=== PATIENT | female | born 1935 | race Caucasian/White ===

== ENCOUNTER 2022-02-21 16:55 | Inpatient (IN) | payer MEDICARE, OTHER ==
[2022-02-22] MEDS: MELATONIN 5 MG TAB PO SCH ×2 (00:53→21:18)
[2022-02-22 01:24] LABS: Bilirubin,Urine NEG (Negative); Blood,Urine NEG (Negative); Color,Urine Yellow (Yellow); Mucus,Urine FEW /HPF; Protein,Urine <15 mg/dL mg/dL (Negative)
--- NOTE | 2022-02-22 08:35 | History and Physical Report ---
GP History & Physical - History of Present Illness Date of admission: 02/21/22 Date of Examination: 02/22/22 Reason for Admission: Danger to self, Danger to others Chief Complaint: suicidal ideation History of Present Illness: The patient is an 87 year old female with depression and anxiety who was admitted for suicidal ideation. Per note, "the patient made suicidal statements and relayed that she would jump out of the window; the patient has had 2 suicidal attempt in the past in which she held scissors to her throat and cut herself with glass, daughter relates that the patient's 4 years ago and that the patient continues to grieve and feel alone." The patient was seen this morning. She presents with confusion; she was seen pacing the hallway asking why she is here. The patient states that " I fell off a chair, just carelessness and they took me to the hospital, I didn't break anything, who's the doctor putting me here." The patient denies suicidal ideation " I want to leave, I got things to do." PAST PSYCHIATRIC HISTORY: PAST MEDICAL HISTORY: None reported or document Family Psychiatric History: None reported or documented SOCIAL HISTORY REVIEW OF SYSTEMS MENTAL STATUS EXAMINATION Diagnoses: Major depressive disorder Treatment Plan: Patient admitted for inpatient psychiatric evaluation, medication adjustment and close monitoring The patient's behavior, mood, sleep and appetite will be closely monitored. Patient enrolled in individual and group therapeutic sessions and encouraged to attend. Patient provided with a safe and structured environment. Patient's physical health needs will be addressed by the Hospitalist. Hospitalist Consulted Labs including CBC, CMP, Lipid profile and Hemoglobin A1C levels ordered for baseline reference Social Assessment will be completed and the Woodworking Craftsman will work with patient and family to ensure a suitable and safe disposition Medication adjustment will be made as clinically indicated Continue home meds Usual Wellness Episcopalian/Preservation: - Start Trazodone 50 mg po QHS & 50 mg po QHS PRN between 10 PM & 2 AM for insomnia - Start Melatonin 5 mg po QHS to promote circadian rhythm The patient agreed on the treatment plan, understood the risk, benefit, alternative treatment, potential consequence of no treatment, and gave informed consent. Estimated days: 7 Medications and Allergies Legal Status: Involuntary Medications and Allergies Medications and Allergies Allergies Allergy/AdvReac Type Severity Reaction Status Date / Time codeine Allergy Unknown Verified 02/21/22 22:24 Home Medications Medication Instructions Recorded Confirmed Last Taken Type Albuterol Sulfate [Proair 2 puff INHALATION UNK 02/22/22 02/22/22 Unknown History Respiclick] Amiodarone [Cordarone 200 MG TAB] 200 mg PO DAILY 02/22/22 02/22/22 Unknown History Apixaban [Eliquis] 5 mg PO BID 02/22/22 02/22/22 Unknown History Ascorbic Acid [Vitamin C] 500 mg PO QDAY 02/22/22 02/22/22 Unknown History Budesonide/Formoterol Fumarate 10.2 gm IH BID 02/22/22 02/22/22 Unknown History [Symbicort 160-4.5 Mcg Inhaler] Furosemide [Lasix] 20 mg PO BID 02/22/22 02/22/22 Unknown History Levothyroxine [Synthroid] 100 mcg PO QAM 02/22/22 02/22/22 Unknown History Melatonin [Melatonin 3MG TAB] 3 mg PO HS 02/22/22 02/22/22 Unknown History Metoprolol [Lopressor] 25 mg PO BID 02/22/22 02/22/22 Unknown History Nitroglycerin [Nitrostat] 0.4 mg SL Q5M PRN 02/22/22 02/22/22 Unknown History Omeprazole 40 mg PO DAILY 02/22/22 02/22/22 Unknown History Potassium Chloride [K-Dur] 10 meq PO BID 02/22/22 02/22/22 Unknown History QUEtiapine [SEROquel] 100 mg PO BID 02/22/22 02/22/22 Unknown History Quinapril HCl [Accupril] 20 mg PO DAILY 02/22/22 02/22/22 Unknown History Sertraline [Zoloft] 50 mg PO QDAY 02/22/22 02/22/22 Unknown History hydroCHLOROthiazide [HCTZ] 25 mg PO QDAY 02/22/22 02/22/22 Unknown History Active Meds: Active Medications Melatonin (Melatonin 5 Mg Tab) 5 mg PO QHS [facility] Last Admin: 02/22/22 00:53 Dose: 5 mg Results - Results Labs/Vitals: Laboratory Last Values POC Glucose 98 mg/dL (70-105) 02/22/22 06:19 Urine Color Yellow (Yellow) 02/22/22 00:52 Urine Turbidity Clear (Clear) 02/22/22 00:52 Urine pH 5.0 (5.0-7.0) 02/22/22 00:52 Ur Specific [place] 1.017 (1.003-1.030) 02/22/22 00:52 Urine Protein <15 mg/dl mg/dL (Negative) 02/22/22 00:52 Urine Glucose (UA) Neg mg/dL (Negative) 02/22/22 00:52 Urine Ketones Neg mg/dL (Negative) 02/22/22 00:52 Urine Blood Neg (Negative) 02/22/22 00:52 Urine Nitrite Neg (Negative) 02/22/22 00:52 Urine Bilirubin Neg (Negative) 02/22/22 00:52 Urine Urobilinogen 2.0 mg/dL (<2.0) 02/22/22 00:52 Ur Leukocyte Esterase Sm (Negative) 02/22/22 00:52 Urine WBC (Auto) 17.0 /HPF (0.0-6.0) H 02/22/22 00:52 Urine RBC (Auto) 2.0 /HPF (0.0-6.0) 02/22/22 00:52 U Epithel Cells (Auto) 1.0 /HPF (0-13.0) 02/22/22 00:52 Urine Mucus Few /HPF 02/22/22 00:52 Last Vital Signs Temp 98.7 F 02/21/22 22:24 Pulse 56 L 02/21/22 22:24 Resp 17 02/21/22 22:24 BP 122/59 02/21/22 22:24 Pulse Ox 94 02/21/22 22:24 Physical Examination - Constitutional Vitals: Vital Signs Temp Pulse Resp BP Pulse Ox 98.7 F 56 L 17 122/59 94 02/21/22 22:24 02/21/22 22:24 02/21/22 22:24 02/21/22 22:24 02/21/22 22:24 Temperature -Last 24 Hours Temperature 98.7 F Mental Status Exam - Vital signs Last Vital Signs Temp 98.7 F 02/21/22 22:24 Pulse 56 L 02/21/22 22:24 Resp 17 02/21/22 22:24 BP 122/59 02/21/22 22:24 Pulse Ox 94 02/21/22 22:24 Physician Certification - Certification Statement Physician Certification Statement: This is an acknowledgement statement that LINA VILLEGAS is a 87 year old F who requires inpatient psychiatric admission for treatment which could reasonably be expected to improve the patient's condition for Estimated period of time patient will need to remain in the hospital: [ ] Plan for post-hospital care: [ ]
[2022-02-22] MEDS ORDERED: NON-FORMULARY EACH (Albuterol Sulfate [Proair Respiclick] 90 MCG Aer.Pow.Ba) INHALATION SCH (08:45)
[2022-02-22] MEDS ORDERED: NITROGLYCERIN 0.4 MG TAB SUBL SL PRN (09:30)
[2022-02-22] MEDS ORDERED: ALBUTEROL 2.5 MG/3 ML NEBU IH ONE (09:35)
[2022-02-22] MEDS ORDERED: QUINAPRIL HCL 20 MG PO SCH (10:00)
[2022-02-22] MEDS ORDERED: NON-FORMULARY EACH (Omeprazole [Omeprazole] 40 MG Capsule.Dr) PO SCH (10:00)
[2022-02-22] MEDS ORDERED: NON-FORMULARY EACH (Apixaban 5 MG Tablet) PO SCH (10:00)
[2022-02-22] MEDS ORDERED: NON-FORMULARY EACH (Budesonide/Formoterol Fumarate [Symbicort 160-4.5 Mcg Inhaler] 10.2 GM IH SCH (10:00)
[2022-02-22] MEDS: METOPROLOL TARTRATE 25 MG TAB PO SCH ×2 (10:43→21:18)
[2022-02-22] MEDS: hydroCHLOROthiazide 25 MG TAB PO SCH (10:43)
[2022-02-22] MEDS: SERTRALINE 50 MG TAB PO SCH (10:43)
[2022-02-22] MEDS: AMIODARONE 200 MG TAB PO SCH (10:43)
[2022-02-22] MEDS: ASCORBIC ACID 500 MG TAB PO SCH (10:43)
[2022-02-22] MEDS: QUEtiapine 100 MG TAB PO SCH ×2 (10:43→21:19)
[2022-02-22] MEDS: FUROSEMIDE 20 MG TAB PO SCH ×2 (10:47→18:04)
[2022-02-22] MEDS: PANTOPRAZOLE 40 MG TAB PO SCH (10:47)
[2022-02-22] MEDS: LEVOTHYROXINE 100 MCG TAB PO SCH (10:47)
[2022-02-22] MEDS: APIXABAN 5 MG TAB PO SCH ×3 (10:51→21:18)
[2022-02-22] MEDS: LISINOPRIL 10 MG TAB PO SCH (11:03)
[2022-02-22] MEDS: INSULIN LISPRO 100 UNIT/ML SUB-Q SCH ×4 (12:01→22:14)
[2022-02-22] MEDS: POTASSIUM CHLORIDE ER 10 MEQ TAB PO SCH ×2 (12:05→21:17)
--- NOTE | 2022-02-22 15:56 | Consultation ---
History of Present Illness - Reason for Consult Consult date: 02/22/22 hospital medicine - History of Present Illness The patient is an 87 year old female admitted for suicidal ideation. Per patient admitting history, patient made suicidal statements and relayed that she would jump out of the window; the patient has had 2 suicidal attempt in the past in which she held scissors to her throat and cut herself with glass, daughter relates that the patient's 4 years ago and that the patient continues to grieve and feel alone." Patient seen at bedside sleeping. patient nurse at bedside-pt recently medicated for sedation-patient not in any distress. reviewed lab, mar and v/s. Pts WBC elevated-17.0, temp 98.6 and HR 69-no evidence of infection-will repeat cbc in am and order UA and blood culture. Medications and Allergies Allergies Allergy/AdvReac Type Severity Reaction Status Date / Time codeine Allergy Unknown Verified 02/21/22 22:24 Home Medications Medication Instructions Recorded Confirmed Last Taken Type Albuterol Sulfate [Proair 2 puff INHALATION UNK 02/22/22 02/22/22 Unknown History Respiclick] Amiodarone [Cordarone 200 MG TAB] 200 mg PO DAILY 02/22/22 02/22/22 Unknown History Apixaban [Eliquis] 5 mg PO BID 02/22/22 02/22/22 Unknown History Ascorbic Acid [Vitamin C] 500 mg PO QDAY 02/22/22 02/22/22 Unknown History Budesonide/Formoterol Fumarate 10.2 gm IH BID 02/22/22 02/22/22 Unknown History [Symbicort 160-4.5 Mcg Inhaler] Furosemide [Lasix] 20 mg PO BID 02/22/22 02/22/22 Unknown History Levothyroxine [Synthroid] 100 mcg PO QAM 02/22/22 02/22/22 Unknown History Melatonin [Melatonin 3MG TAB] 3 mg PO HS 02/22/22 02/22/22 Unknown History Metoprolol [Lopressor] 25 mg PO BID 02/22/22 02/22/22 Unknown History Nitroglycerin [Nitrostat] 0.4 mg SL Q5M PRN 02/22/22 02/22/22 Unknown History Omeprazole 40 mg PO DAILY 02/22/22 02/22/22 Unknown History Potassium Chloride [K-Dur] 10 meq PO BID 02/22/22 02/22/22 Unknown History QUEtiapine [SEROquel] 100 mg PO BID 02/22/22 02/22/22 Unknown History Quinapril HCl [Accupril] 20 mg PO DAILY 02/22/22 02/22/22 Unknown History Sertraline [Zoloft] 50 mg PO QDAY 02/22/22 02/22/22 Unknown History hydroCHLOROthiazide [HCTZ] 25 mg PO QDAY 02/22/22 02/22/22 Unknown History Active Meds: Active Medications Albuterol (Albuterol 2.5 Mg/3 Ml Nebu) 2.5 mg IH Q4HRT PRN PRN Reason: Shortness Of Breath Amiodarone HCl (Amiodarone 200 Mg Tab) 200 mg PO DAILY [facility] Last Admin: 02/22/22 10:43 Dose: 200 mg Apixaban (Apixaban 5 Mg Tab) 5 mg PO Q12HR [facility]; Protocol Last Admin: 02/22/22 11:00 Dose: 5 mg Arformoterol Tartrate (Arformoterol 15 Mcg/2 Ml Nebu) 15 mcg IH Q12HRT [facility] Ascorbic Acid (Ascorbic Acid 500 Mg Tab) 500 mg PO QDAY [facility] Last Admin: 02/22/22 10:43 Dose: 500 mg Budesonide (Budesonide 0.5 Mg/2 Ml Nebu) 1 mg IH Q12HRT [facility] Furosemide (Furosemide 20 Mg Tab) 20 mg PO 0600,1800 [facility] Last Admin: 02/22/22 10:47 Dose: Not Given Hydrochlorothiazide (Hydrochlorothiazide 25 Mg Tab) 25 mg PO QDAY [facility] Last Admin: 02/22/22 10:43 Dose: Not Given Insulin Human Lispro (Insulin Lispro 100 Unit/Ml) 0 unit SUB-Q [facility]; Protocol Last Admin: 02/22/22 12:01 Dose: Not Given Levothyroxine Sodium (Levothyroxine 100 Mcg Tab) 100 mcg PO DAILY@0600 [facility] Last Admin: 02/22/22 10:47 Dose: Not Given Lisinopril (Lisinopril 10 Mg Tab) 10 mg PO QDAY [facility] Last Admin: 02/22/22 11:03 Dose: Not Given Melatonin (Melatonin 5 Mg Tab) 5 mg PO QHS [facility] Last Admin: 02/22/22 00:53 Dose: 5 mg Metoprolol Tartrate (Metoprolol Tartrate 25 Mg Tab) 25 mg PO BID [facility] Last Admin: 02/22/22 10:43 Dose: 25 mg Nitroglycerin (Nitroglycerin 0.4 Mg Tab Subl) 0.4 mg SL Q5M PRN PRN Reason: Chest Pain Pantoprazole Sodium (Pantoprazole 40 Mg Tab) 40 mg PO DAILY [facility] Last Admin: 02/22/22 10:47 Dose: Not Given Potassium Chloride (Potassium Chloride Er 10 Meq Tab) 10 meq PO BID [facility] Quetiapine Fumarate (Quetiapine 100 Mg Tab) 100 mg PO BID [facility] Last Admin: 02/22/22 10:43 Dose: 100 mg Sertraline HCl (Sertraline 50 Mg Tab) 50 mg PO QDAY [facility] Last Admin: 02/22/22 10:43 Dose: 50 mg Exam - Constitutional Vitals: Temp Pulse Resp BP Pulse Ox 98.6 F 69 18 120/50 93 02/22/22 09:52 02/22/22 09:53 02/22/22 09:53 02/22/22 09:52 02/22/22 09:52 General appearance: Present: no acute distress - Neck Neck: Present: supple - Respiratory Respiratory effort: normal - Extremities Extremities: no ischemia - Psychiatric Psychiatric: other (suicide ideation) - Allied Health Allied health notes reviewed: nursing Results - Labs Labs: Abnormal lab results 02/22/22 Range/Units 00:52 Urine WBC (Auto) 17.0 H (0.0-6.0) /HPF Assessment and Plan - Patient Problems (1) Suicide ideation Current Visit: Yes Status: Acute Plan to address problem: Psych following continue Psych medicine per psych reces Suicide precautions (2) Anxiety and depression Current Visit: Yes Status: Acute Plan to address problem: continue antidepressant zolof (3) Leucocytosis Current Visit: Yes Status: Acute Plan to address problem: Blood culture and UA No evidence of infection Repeat cbc in am (4) Hypertension Current Visit: Yes Status: Acute Plan to address problem: Monitor blood pressure Continue home BP med
[2022-02-22] MEDS: ALBUTEROL 2.5 MG/3 ML NEBU IH PRN (18:30)
[2022-02-22] MEDS: ARFORMOTEROL 15 MCG/2 ML NEBU IH SCH ×2 (19:47→20:34)
[2022-02-22] MEDS: BUDESONIDE 0.5 MG/2 ML NEBU IH SCH ×2 (19:47→20:35)
[2022-02-22] MEDS ORDERED: NON-FORMULARY EACH (Melatonin [Melatonin 3mg Tab] 3 MG Tablet) PO SCH (22:00)
[2022-02-23 05:53] LABS: Basophils # (Auto) 0.1 K/mm3 (0.0-0.1); Basophils % (Auto) 1.1 % (0.0-1.8); Eosinophils # (Auto) 0.3 K/mm3 (0.0-0.4); Eosinophils % (Auto) 4.6 % (0.0-4.3); Hematocrit 28.9 % (30.3-42.9); Hemoglobin 9.4 gm/dl (10.1-14.3); Lymphocytes # (Auto) 1.3 K/mm3 (1.2-5.4); Lymphocytes % (Auto) 21.9 % (13.4-35.0); Mean Corpuscular HGB Conc 33 % (30-34); Mean Corpuscular Volume 88 fl (79-97); Monocytes # (Auto) 0.5 K/mm3 (0.0-0.8); Monocytes % (Auto) 8.9 % (0.0-7.3); Platelet Count 261 K/mm3 (140-440); Red Blood Count 3.26 M/mm3 (3.65-5.03); Red Cell Distribution Width 15.8 % (13.2-15.2)
[2022-02-23 06:18] LABS: Alanine Aminotransferase 13 units/L (7-56); Albumin 2.9 g/dL (3.9-5); Blood Urea Nitrogen 11 mg/dL (7-17); Calcium 8.8 mg/dL (8.4-10.2); Hemolysis Index 3
[2022-02-23 06:21] LABS: BUN/Creatinine Ratio 18
[2022-02-23 06:29] LABS: Chol/HDL Ratio 1.98 %
[2022-02-23] MEDS: ARFORMOTEROL 15 MCG/2 ML NEBU IH SCH ×2 (08:33→21:05)
[2022-02-23] MEDS: BUDESONIDE 0.5 MG/2 ML NEBU IH SCH ×2 (08:34→21:05)
--- NOTE | 2022-02-23 10:52 | Progress Note ---
Subjective Date of service: 02/23/22 Subjective Comment: 02/23: The patient was seen this morning. She presents with restlessness and confusion. She continues to pace, requesting to be discharged. Start Klonopin 0.5mg po BID prn for anxiety REVIEW OF SYSTEMS MENTAL STATUS EXAMINATION Diagnoses: Major depressive disorder Treatment Plan: Patient admitted for inpatient psychiatric evaluation, medication adjustment and close monitoring The patient's behavior, mood, sleep and appetite will be closely monitored. Patient enrolled in individual and group therapeutic sessions and encouraged to attend. Patient provided with a safe and structured environment. Patient's physical health needs will be addressed by the Hospitalist. Hospitalist Consulted Labs including CBC, CMP, Lipid profile and Hemoglobin A1C levels ordered for baseline reference Social Assessment will be completed and the Sock Mender will work with patient and family to ensure a suitable and safe disposition Medication adjustment will be made as clinically indicated Continue home meds Usual Wellness Rastafari/Preservation: - Start Trazodone 50 mg po QHS & 50 mg po QHS PRN between 10 PM & 2 AM for ins omnia - Start Melatonin 5 mg po QHS to promote circadian rhythm The patient agreed on the treatment plan, understood the risk, benefit, alternative treatment, potential consequence of no treatment, and gave informed consent. Estimated days: 7 Medications and Allergies Legal Status: Involuntary Medications and Allergies Medications and Allergies Allergies Allergy/AdvReac Type Severity Reaction Status Date / Time codeine Allergy Unknown Verified 02/21/22 22:24 Home Medications Medication Instructions Recorded Confirmed Last Taken Type Albuterol Sulfate [Proair 2 puff INHALATION UNK 02/22/22 02/22/22 Unknown History Respiclick] Amiodarone [Cordarone 200 MG TAB] 200 mg PO DAILY 02/22/22 02/22/22 Unknown History Apixaban [Eliquis] 5 mg PO BID 02/22/22 02/22/22 Unknown History Ascorbic Acid [Vitamin C] 500 mg PO QDAY 02/22/22 02/22/22 Unknown History Budesonide/Formoterol Fumarate 10.2 gm IH BID 02/22/22 02/22/22 Unknown History [Symbicort 160-4.5 Mcg Inhaler] Furosemide [Lasix] 20 mg PO BID 02/22/22 02/22/22 Unknown History Levothyroxine [Synthroid] 100 mcg PO QAM 02/22/22 02/22/22 Unknown History Melatonin [Melatonin 3MG TAB] 3 mg PO HS 02/22/22 02/22/22 Unknown History Metoprolol [Lopressor] 25 mg PO BID 02/22/22 02/22/22 Unknown History Nitroglycerin [Nitrostat] 0.4 mg SL Q5M PRN 02/22/22 02/22/22 Unknown History Omeprazole 40 mg PO DAILY 02/22/22 02/22/22 Unknown History Potassium Chloride [K-Dur] 10 meq PO BID 02/22/22 02/22/22 Unknown History QUEtiapine [SEROquel] 100 mg PO BID 02/22/22 02/22/22 Unknown History Quinapril HCl [Accupril] 20 mg PO DAILY 02/22/22 02/22/22 Unknown History Sertraline [Zoloft] 50 mg PO QDAY 02/22/22 02/22/22 Unknown History hydroCHLOROthiazide [HCTZ] 25 mg PO QDAY 02/22/22 02/22/22 Unknown History Active Meds: Active Medications Albuterol (Albuterol 2.5 Mg/3 Ml Nebu) 2.5 mg IH Q4HRT PRN PRN Reason: Shortness Of Breath Last Admin: 02/22/22 18:30 Dose: 2.5 mg Amiodarone HCl (Amiodarone 200 Mg Tab) 200 mg PO DAILY [facility] Last Admin: 02/22/22 10:43 Dose: 200 mg Apixaban (Apixaban 5 Mg Tab) 5 mg PO Q12HR [facility]; Protocol Last Admin: 02/22/22 21:18 Dose: 5 mg Arformoterol Tartrate (Arformoterol 15 Mcg/2 Ml Nebu) 15 mcg IH Q12HRT [facility] Last Admin: 02/23/22 08:33 Dose: Not Given Ascorbic Acid (Ascorbic Acid 500 Mg Tab) 500 mg PO QDAY [facility] Last Admin: 02/22/22 10:43 Dose: 500 mg Budesonide (Budesonide 0.5 Mg/2 Ml Nebu) 1 mg IH Q12HRT [facility] Last Admin: 02/23/22 08:34 Dose: Not Given Clonazepam (Clonazepam 0.5 Mg Tab) 0.5 mg PO BID PRN PRN Reason: Anxiety Furosemide (Furosemide 20 Mg Tab) 20 mg PO 0600,1800 [facility] Last Admin: 02/22/22 10:47 Dose: Not Given Hydrochlorothiazide (Hydrochlorothiazide 25 Mg Tab) 25 mg PO QDAY [facility] Last Admin: 02/22/22 10:43 Dose: Not Given Insulin Human Lispro (Insulin Lispro 100 Unit/Ml) 0 unit SUB-Q [facility]; Protocol Last Admin: 02/22/22 22:14 Dose: 1 unit Levothyroxine Sodium (Levothyroxine 100 Mcg Tab) 100 mcg PO DAILY@0600 [facility] Last Admin: 02/22/22 10:47 Dose: Not Given Lisinopril (Lisinopril 10 Mg Tab) 10 mg PO QDAY [facility] Last Admin: 02/22/22 11:03 Dose: Not Given Melatonin (Melatonin 5 Mg Tab) 5 mg PO QHS [facility] Last Admin: 02/22/22 21:18 Dose: 5 mg Metoprolol Tartrate (Metoprolol Tartrate 25 Mg Tab) 25 mg PO BID [facility] Last Admin: 02/22/22 21:18 Dose: 25 mg Nitroglycerin (Nitroglycerin 0.4 Mg Tab Subl) 0.4 mg SL Q5M PRN PRN Reason: Chest Pain Pantoprazole Sodium (Pantoprazole 40 Mg Tab) 40 mg PO DAILY [facility] Last Admin: 02/22/22 10:47 Dose: Not Given Potassium Chloride (Potassium Chloride Er 10 Meq Tab) 10 meq PO BID [facility] Last Admin: 02/22/22 21:17 Dose: 10 meq Quetiapine Fumarate (Quetiapine 100 Mg Tab) 100 mg PO BID [facility] Last Admin: 02/22/22 21:19 Dose: 100 mg Sertraline HCl (Sertraline 50 Mg Tab) 50 mg PO QDAY [facility] Last Admin: 02/22/22 10:43 Dose: 50 mg Results - Results Labs/Vitals: Laboratory Last Values WBC 5.9 K/mm3 (4.5-11.0) 02/23/22 04:58 RBC 3.26 M/mm3 (3.65-5.03) L 02/23/22 04:58 Hgb 9.4 gm/dl (10.1-14.3) L 02/23/22 04:58 Hct 28.9 % (30.3-42.9) L 02/23/22 04:58 MCV 88 fl (79-97) 02/23/22 04:58 MCH 29 pg (28-32) 02/23/22 04:58 MCHC 33 % (30-34) 02/23/22 04:58 RDW 15.8 % (13.2-15.2) H 02/23/22 04:58 Plt Count 261 K/mm3 (140-440) 02/23/22 04:58 Lymph % (Auto) 21.9 % (13.4-35.0) 02/23/22 04:58 [place] % (Auto) 8.9 % (0.0-7.3) H 02/23/22 04:58 Eos % (Auto) 4.6 % (0.0-4.3) H 02/23/22 04:58 Baso % (Auto) 1.1 % (0.0-1.8) 02/23/22 04:58 Lymph # (Auto) 1.3 K/mm3 (1.2-5.4) 02/23/22 04:58 Irwin # (Auto) 0.5 K/mm3 (0.0-0.8) 02/23/22 04:58 Eos # (Auto) 0.3 K/mm3 (0.0-0.4) 02/23/22 04:58 Baso # (Auto) 0.1 K/mm3 (0.0-0.1) 02/23/22 04:58 Seg Neutrophils % 63.5 % (40.0-70.0) 02/23/22 04:58 Seg Neutrophils # 3.8 K/mm3 (1.8-7.7) 02/23/22 04:58 Sodium 140 mmol/L (137-145) 02/23/22 04:58 Potassium 4.4 mmol/L (3.6-5.0) 02/23/22 04:58 Chloride 104.3 mmol/L (98-107) 02/23/22 04:58 Carbon Dioxide 28 mmol/L (22-30) 02/23/22 04:58 Anion Gap 12 mmol/L 02/23/22 04:58 BUN 11 mg/dL (7-17) 02/23/22 04:58 Creatinine 0.6 mg/dL (0.6-1.2) 02/23/22 04:58 Estimated GFR > 60 ml/min 02/23/22 04:58 BUN/Creatinine Ratio 18 % 02/23/22 04:58 Glucose 126 mg/dL (65-100) H 02/23/22 04:58 POC Glucose 193 mg/dL (70-105) H 02/22/22 20:20 Hemoglobin A1c 7.2 % (4-6) H 02/23/22 04:58 Calcium 8.8 mg/dL (8.4-10.2) 02/23/22 04:58 Total Bilirubin 0.20 mg/dL (0.1-1.2) 02/23/22 04:58 AST 12 units/L (5-40) 02/23/22 04:58 ALT 13 units/L (7-56) 02/23/22 04:58 Alkaline Phosphatase 112 units/L (35-129) 02/23/22 04:58 Total Protein 5.8 g/dL (6.3-8.2) L 02/23/22 04:58 Albumin 2.9 g/dL (3.9-5) L 02/23/22 04:58 Albumin/Globulin Ratio 1.0 % 02/23/22 04:58 Triglycerides 52 mg/dL (2-149) 02/23/22 04:58 Cholesterol 129 mg/dL (50-199) 02/23/22 04:58 LDL Cholesterol Direct 60 mg/dL (50-130) 02/23/22 04:58 HDL Cholesterol 65 mg/dL (40-59) H 02/23/22 04:58 Cholesterol/HDL Ratio 1.98 % 02/23/22 04:58 TSH 0.975 mlU/mL (0.270-4.200) 02/23/22 04:58 Urine Color Yellow (Yellow) 02/22/22 00:52 Urine Turbidity Clear (Clear) 02/22/22 00:52 Urine pH 5.0 (5.0-7.0) 02/22/22 00:52 Ur Specific [place] 1.017 (1.003-1.030) 02/22/22 00:52 Urine Protein <15 mg/dl mg/dL (Negative) 02/22/22 00:52 Urine Glucose (UA) Neg mg/dL (Negative) 02/22/22 00:52 Urine Ketones Neg mg/dL (Negative) 02/22/22 00:52 Urine Blood Neg (Negative) 02/22/22 00:52 Urine Nitrite Neg (Negative) 02/22/22 00:52 Urine Bilirubin Neg (Negative) 02/22/22 00:52 Urine Urobilinogen 2.0 mg/dL (<2.0) 02/22/22 00:52 Ur Leukocyte Esterase Sm (Negative) 02/22/22 00:52 Urine WBC (Auto) 17.0 /HPF (0.0-6.0) H 02/22/22 00:52 Urine RBC (Auto) 2.0 /HPF (0.0-6.0) 02/22/22 00:52 U Epithel Cells (Auto) 1.0 /HPF (0-13.0) 02/22/22 00:52 Urine Mucus Few /HPF 02/22/22 00:52 Last Vital Signs Temp 98.1 F 02/22/22 22:00 Pulse 62 02/22/22 22:00 Resp 16 02/22/22 22:00 BP 135/62 02/22/22 22:00 Pulse Ox 98 02/22/22 22:00
[2022-02-23] MEDS: INSULIN LISPRO 100 UNIT/ML SUB-Q SCH ×4 (11:03→21:32)
[2022-02-23] MEDS: APIXABAN 5 MG TAB PO SCH ×2 (11:25→21:31)
[2022-02-23] MEDS: QUEtiapine 100 MG TAB PO SCH ×2 (11:25→21:31)
[2022-02-23] MEDS: POTASSIUM CHLORIDE ER 10 MEQ TAB PO SCH ×2 (11:25→21:32)
[2022-02-23] MEDS: SERTRALINE 50 MG TAB PO SCH (11:25)
[2022-02-23] MEDS: PANTOPRAZOLE 40 MG TAB PO SCH (11:25)
[2022-02-23] MEDS: FUROSEMIDE 20 MG TAB PO SCH ×2 (11:27→18:05)
[2022-02-23] MEDS: ASCORBIC ACID 500 MG TAB PO SCH (11:29)
[2022-02-23] MEDS: METOPROLOL TARTRATE 25 MG TAB PO SCH ×2 (11:29→21:33)
[2022-02-23] MEDS: AMIODARONE 200 MG TAB PO SCH (11:29)
[2022-02-23] MEDS: hydroCHLOROthiazide 25 MG TAB PO SCH (11:29)
[2022-02-23] MEDS: LISINOPRIL 10 MG TAB PO SCH (12:09)
--- NOTE | 2022-02-23 15:21 | Progress Note ---
Assessment and Plan - Patient Problems (1) Suicide ideation Current Visit: Yes Status: Acute Plan to address problem: Psych following continue Psych medicine per psych reces Suicide precautions (2) Anxiety and depression Current Visit: Yes Status: Resolved Plan to address problem: continue antidepressant zolof (3) Leucocytosis Current Visit: Yes Status: Acute Plan to address problem: Blood culture and UA No evidence of infection Repeat cbc in am (4) Hypertension Current Visit: Yes Status: Acute Plan to address problem: Monitor blood pressure Continue home BP med History Interval history: patient seen today at bedside. Patient alert oriented x3. Patient denies any distress. Patient seemed to be confused. She asked me when issues going home. Patient redirectedthis is hospital. I discussed medication compliance with patient. She says she will be taking her medicine. Reviewed lab workWBC within normal limits and vital signs stable. Hospitalist Physical - Constitutional Vitals: Temp Pulse Resp BP Pulse Ox 98.1 F 62 16 135/62 98 02/22/22 22:00 02/22/22 22:00 02/22/22 22:00 02/22/22 22:00 02/22/22 22:00 General appearance: Present: no acute distress - Respiratory Respiratory: bilateral: CTA - Abdominal General gastrointestinal: non-tender - Psychiatric Psychiatric: agitated, other (Confused) - Allied Health Allied health notes reviewed: nursing Results - Labs CBC & Chem 7: 02/23/22 04:58 02/23/22 04:58 Labs: Laboratory Last Values WBC 5.9 K/mm3 (4.5-11.0) 02/23/22 04:58 RBC 3.26 M/mm3 (3.65-5.03) L 02/23/22 04:58 Hgb 9.4 gm/dl (10.1-14.3) L 02/23/22 04:58 Hct 28.9 % (30.3-42.9) L 02/23/22 04:58 MCV 88 fl (79-97) 02/23/22 04:58 MCH 29 pg (28-32) 02/23/22 04:58 MCHC 33 % (30-34) 02/23/22 04:58 RDW 15.8 % (13.2-15.2) H 02/23/22 04:58 Plt Count 261 K/mm3 (140-440) 02/23/22 04:58 Lymph % (Auto) 21.9 % (13.4-35.0) 02/23/22 04:58 [place] % (Auto) 8.9 % (0.0-7.3) H 02/23/22 04:58 Eos % (Auto) 4.6 % (0.0-4.3) H 02/23/22 04:58 Baso % (Auto) 1.1 % (0.0-1.8) 02/23/22 04:58 Lymph # (Auto) 1.3 K/mm3 (1.2-5.4) 02/23/22 04:58 [place] # (Auto) 0.5 K/mm3 (0.0-0.8) 02/23/22 04:58 Eos # (Auto) 0.3 K/mm3 (0.0-0.4) 02/23/22 04:58 Baso # (Auto) 0.1 K/mm3 (0.0-0.1) 02/23/22 04:58 Seg Neutrophils % 63.5 % (40.0-70.0) 02/23/22 04:58 Seg Neutrophils # 3.8 K/mm3 (1.8-7.7) 02/23/22 04:58 Sodium 140 mmol/L (137-145) 02/23/22 04:58 Potassium 4.4 mmol/L (3.6-5.0) 02/23/22 04:58 Chloride 104.3 mmol/L (98-107) 02/23/22 04:58 Carbon Dioxide 28 mmol/L (22-30) 02/23/22 04:58 Anion Gap 12 mmol/L 02/23/22 04:58 BUN 11 mg/dL (7-17) 02/23/22 04:58 Creatinine 0.6 mg/dL (0.6-1.2) 02/23/22 04:58 Estimated GFR > 60 ml/min 02/23/22 04:58 BUN/Creatinine Ratio 18 % 02/23/22 04:58 Glucose 126 mg/dL (65-100) H 02/23/22 04:58 POC Glucose 193 mg/dL (70-105) H 02/22/22 20:20 Hemoglobin A1c 7.2 % (4-6) H 02/23/22 04:58 Calcium 8.8 mg/dL (8.4-10.2) 02/23/22 04:58 Total Bilirubin 0.20 mg/dL (0.1-1.2) 02/23/22 04:58 AST 12 units/L (5-40) 02/23/22 04:58 ALT 13 units/L (7-56) 02/23/22 04:58 Alkaline Phosphatase 112 units/L (35-129) 02/23/22 04:58 Total Protein 5.8 g/dL (6.3-8.2) L 02/23/22 04:58 Albumin 2.9 g/dL (3.9-5) L 02/23/22 04:58 Albumin/Globulin Ratio 1.0 % 02/23/22 04:58 Triglycerides 52 mg/dL (2-149) 02/23/22 04:58 Cholesterol 129 mg/dL (50-199) 02/23/22 04:58 LDL Cholesterol Direct 60 mg/dL (50-130) 02/23/22 04:58 HDL Cholesterol 65 mg/dL (40-59) H 02/23/22 04:58 Cholesterol/HDL Ratio 1.98 % 02/23/22 04:58 TSH 0.975 mlU/mL (0.270-4.200) 02/23/22 04:58 Urine Color Yellow (Yellow) 02/22/22 00:52 Urine Turbidity Clear (Clear) 02/22/22 00:52 Urine pH 5.0 (5.0-7.0) 02/22/22 00:52 Ur Specific [place] 1.017 (1.003-1.030) 02/22/22 00:52 Urine Protein <15 mg/dl mg/dL (Negative) 02/22/22 00:52 Urine Glucose (UA) Neg mg/dL (Negative) 02/22/22 00:52 Urine Ketones Neg mg/dL (Negative) 02/22/22 00:52 Urine Blood Neg (Negative) 02/22/22 00:52 Urine Nitrite Neg (Negative) 02/22/22 00:52 Urine Bilirubin Neg (Negative) 02/22/22 00:52 Urine Urobilinogen 2.0 mg/dL (<2.0) 02/22/22 00:52 Ur Leukocyte Esterase Sm (Negative) 02/22/22 00:52 Urine WBC (Auto) 17.0 /HPF (0.0-6.0) H 02/22/22 00:52 Urine RBC (Auto) 2.0 /HPF (0.0-6.0) 02/22/22 00:52 U Epithel Cells (Auto) 1.0 /HPF (0-13.0) 02/22/22 00:52 Urine Mucus Few /HPF 02/22/22 00:52 Microbiology: Microbiology 02/23/22 05:06 Peripheral/Venous Blood Culture - Preliminary Culture in Progress 02/23/22 04:58 Peripheral/Venous Blood Culture - Preliminary Culture in Progress 02/22/22 00:52 Urine,Clean Catch Urine Culture - Preliminary [place]/IV: Voiding Method Toilet Active Medications - Current Medications Current Medications: Generic Name Dose Route Start Last Admin Trade Name Freq PRN Reason Stop Dose Admin Albuterol 2.5 mg 02/22/22 12:00 02/22/22 18:30 Albuterol 2.5 Mg/3 Ml Nebu IH 2.5 mg Q4HRT PRN Administration Shortness Of Breath Amiodarone HCl 200 mg 02/22/22 10:00 02/23/22 11:29 Amiodarone 200 Mg Tab PO 200 mg DAILY YANA Administration Apixaban 5 mg 02/22/22 11:00 02/23/22 11:25 Apixaban 5 Mg Tab PO 5 mg Q12HR YANA Administration Protocol Arformoterol Tartrate 15 mcg 02/22/22 12:00 02/23/22 08:33 Arformoterol 15 Mcg/2 Ml Nebu IH Not Given Q12HRT YANA Ascorbic Acid 500 mg 02/22/22 10:00 02/23/22 11:29 Ascorbic Acid 500 Mg Tab PO 500 mg QDAY YANA Administration Budesonide 1 mg 02/22/22 12:00 02/23/22 08:34 Budesonide 0.5 Mg/2 Ml Nebu IH Not Given Q12HRT YANA Clonazepam 0.5 mg 02/23/22 10:48 Clonazepam 0.5 Mg Tab PO BID PRN Anxiety Furosemide 20 mg 02/22/22 10:00 02/23/22 11:27 Furosemide 20 Mg Tab PO Not Given 0600,1800 [facility] Hydrochlorothiazide 25 mg 02/22/22 10:00 02/23/22 11:29 Hydrochlorothiazide 25 Mg Tab PO Not Given QDAY [facility] Insulin Human Lispro 0 unit 02/22/22 11:30 02/23/22 11:24 Insulin Lispro 100 Unit/Ml SUB-Q Not Given ACHS [facility] Protocol Levothyroxine Sodium 100 mcg 02/22/22 10:00 02/22/22 10:47 Levothyroxine 100 Mcg Tab PO Not Given DAILY@0600 [facility] Lisinopril 10 mg 02/22/22 11:00 02/23/22 12:09 Lisinopril 10 Mg Tab PO Not Given QDAY [facility] Melatonin 5 mg 02/22/22 01:00 02/22/22 21:18 Melatonin 5 Mg Tab PO 5 mg QHS [facility] Administration Metoprolol Tartrate 25 mg 02/22/22 10:00 02/23/22 11:29 Metoprolol Tartrate 25 Mg Tab PO Not Given BID [facility] Nitroglycerin 0.4 mg 02/22/22 09:30 Nitroglycerin 0.4 Mg Tab Subl SL Q5M PRN Chest Pain Pantoprazole Sodium 40 mg 02/22/22 11:00 02/23/22 11:25 Pantoprazole 40 Mg Tab PO 40 mg DAILY [facility] Administration Potassium Chloride 10 meq 02/22/22 11:30 02/23/22 11:25 Potassium Chloride Er 10 Meq Tab PO 10 meq BID [facility] Administration Quetiapine Fumarate 100 mg 02/22/22 10:00 02/23/22 11:25 Quetiapine 100 Mg Tab PO 100 mg BID [facility] Administration Sertraline HCl 50 mg 02/22/22 10:00 02/23/22 11:25 Sertraline 50 Mg Tab PO 50 mg QDAY [facility] Administration Nutrition/Malnutrition Assess - Dietary Evaluation Nutrition/Malnutrition Findings: Nutrition Notes Start: 02/22/22 15:25 Freq: Status: Active Protocol: Document 02/22/22 15:25 ANGELA (Rec: 02/22/22 15:34 ANGELA [id number]) Nutrition Notes Need for Assessment generated from: Low BMI Initial or Follow up Assessment Other Pertinent Diagnosis Major Depressive Disorder, Suicidal Ideation. Current Diet Cardiac/Consistent Carbohydrates Diet (since B ). Height 5 ft 4.57 in Weight 54.7 kg [place] Body Weight (kg) 55.84 BMI 20.3 Intake Prior to Admission Good Weight change and time frame POt denies having loss body weight [employer]. Weight Status Appropriate Subjective/Other Information RD consult for Low BMI assessment. Anthropometric data has been corrected on the chart and Pt is no longer Low BMI. No reports on Pt's PO intake of meals at the time. Pt is on Room Air, O2 saturation @ 94%, according to Vital Signs notes. Percent of energy/protein needs met: Prescribed Cardiac/Consistent Carbohydrates Diet provides for energy/protein needs (1, 977 Kcal/86 g) during LOS. Nutrition Intervention Revisit per MD consult or patient Sign Off request: Additional Comments Continue monitoring food tolerance, %PO intake of meals , and BM.
[2022-02-23] MEDS: LEVOTHYROXINE 100 MCG TAB PO SCH (19:53)
[2022-02-23] MEDS: MELATONIN 5 MG TAB PO SCH (21:32)
[2022-02-24] MEDS: LEVOTHYROXINE 100 MCG TAB PO SCH (06:12)
[2022-02-24] MEDS: FUROSEMIDE 20 MG TAB PO SCH ×2 (06:13→17:41)
[2022-02-24] MEDS: INSULIN LISPRO 100 UNIT/ML SUB-Q SCH ×4 (07:59→21:46)
--- NOTE | 2022-02-24 09:09 | Progress Note ---
Subjective Date of service: 02/24/22 Subjective Comment: 02/24: The patient was seen this morning. She is calm, cooperative and oriented to self. She continues to present with some confusion, rates depression as 110. The patient denies any current suicidal/homicidal ideation and denies hallucinations. No changes made today. 02/23: The patient was seen this morning. She presents with restlessness and confusion. She continues to pace, requesting to be discharged. Start Klonopin 0.5mg po BID prn for anxiety REVIEW OF SYSTEMS MENTAL STATUS EXAMINATION Diagnoses: Major depressive disorder Treatment Plan: Patient admitted for inpatient psychiatric evaluation, medication adjustment and close monitoring The patient's behavior, mood, sleep and appetite will be closely monitored. Patient enrolled in individual and group therapeutic sessions and encouraged to attend. Patient provided with a safe and structured environment. Patient's physical health needs will be addressed by the Hospitalist. Hospitalist Consulted Labs including CBC, CMP, Lipid profile and Hemoglobin A1C levels ordered for baseline reference Social Assessment will be completed and the Electronic Prepress Technician will work with patient and family to ensure a suitable and safe disposition Medication adjustment will be made as clinically indicated Continue home meds Usual Wellness Christian/Preservation: - Start Trazodone 50 mg po QHS & 50 mg po QHS PRN between 10 PM & 2 AM for insomnia - Start Melatonin 5 mg po QHS to promote circadian rhythm The patient agreed on the treatment plan, understood the risk, benefit, alternative treatment, potential consequence of no treatment, and gave informed consent. Estimated days: 7 Medications and Allergies Legal Status: Involuntary Medications and Allergies Allergies Allergy/AdvReac Type Severity Reaction Status Date / Time codeine Allergy Unknown Verified 02/21/22 22:24 Home Medications Medication Instructions Recorded Confirmed Last Taken Type Albuterol Sulfate [Proair 2 puff INHALATION UNK 02/22/22 02/22/22 Unknown History Respiclick] Amiodarone [Cordarone 200 MG TAB] 200 mg PO DAILY 02/22/22 02/22/22 Unknown History Apixaban [Eliquis] 5 mg PO BID 02/22/22 02/22/22 Unknown History Ascorbic Acid [Vitamin C] 500 mg PO QDAY 02/22/22 02/22/22 Unknown History Budesonide/Formoterol Fumarate 10.2 gm IH BID 02/22/22 02/22/22 Unknown History [Symbicort 160-4.5 Mcg Inhaler] Furosemide [Lasix] 20 mg PO BID 02/22/22 02/22/22 Unknown History Levothyroxine [Synthroid] 100 mcg PO QAM 02/22/22 02/22/22 Unknown History Melatonin [Melatonin 3MG TAB] 3 mg PO HS 02/22/22 02/22/22 Unknown History Metoprolol [Lopressor] 25 mg PO BID 02/22/22 02/22/22 Unknown History Nitroglycerin [Nitrostat] 0.4 mg SL Q5M PRN 02/22/22 02/22/22 Unknown History Omeprazole 40 mg PO DAILY 02/22/22 02/22/22 Unknown History Potassium Chloride [K-Dur] 10 meq PO BID 02/22/22 02/22/22 Unknown History QUEtiapine [SEROquel] 100 mg PO BID 02/22/22 02/22/22 Unknown History Quinapril HCl [Accupril] 20 mg PO DAILY 02/22/22 02/22/22 Unknown History Sertraline [Zoloft] 50 mg PO QDAY 02/22/22 02/22/22 Unknown History hydroCHLOROthiazide [HCTZ] 25 mg PO QDAY 02/22/22 02/22/22 Unknown History Active Meds: Active Medications Albuterol (Albuterol 2.5 Mg/3 Ml Nebu) 2.5 mg IH Q4HRT PRN PRN Reason: Shortness Of Breath Last Admin: 02/22/22 18:30 Dose: 2.5 mg Amiodarone HCl (Amiodarone 200 Mg Tab) 200 mg PO DAILY [facility] Last Admin: 02/23/22 11:29 Dose: 200 mg Apixaban (Apixaban 5 Mg Tab) 5 mg PO Q12HR [facility]; Protocol Last Admin: 02/23/22 21:31 Dose: 5 mg Arformoterol Tartrate (Arformoterol 15 Mcg/2 Ml Nebu) 15 mcg IH Q12HRT [facility] Last Admin: 02/23/22 21:05 Dose: 15 mcg Ascorbic Acid (Ascorbic Acid 500 Mg Tab) 500 mg PO QDAY [facility] Last Admin: 02/23/22 11:29 Dose: 500 mg Budesonide (Budesonide 0.5 Mg/2 Ml Nebu) 1 mg IH Q12HRT [facility] Last Admin: 02/23/22 21:05 Dose: 1 mg Clonazepam (Clonazepam 0.5 Mg Tab) 0.5 mg PO BID PRN PRN Reason: Anxiety Furosemide (Furosemide 20 Mg Tab) 20 mg PO 0600,1800 [facility] Last Admin: 02/24/22 06:13 Dose: 20 mg Hydrochlorothiazide (Hydrochlorothiazide 25 Mg Tab) 25 mg PO QDAY [facility] Last Admin: 02/23/22 11:29 Dose: Not Given Insulin Human Lispro (Insulin Lispro 100 Unit/Ml) 0 unit SUB-Q ACHS [facility]; Protocol Last Admin: 02/24/22 07:59 Dose: Not Given Levothyroxine Sodium (Levothyroxine 100 Mcg Tab) 100 mcg PO DAILY@0600 [facility] Last Admin: 02/24/22 06:12 Dose: 100 mcg Lisinopril (Lisinopril 10 Mg Tab) 10 mg PO QDAY [facility] Last Admin: 02/23/22 12:09 Dose: Not Given Melatonin (Melatonin 5 Mg Tab) 5 mg PO QHS [facility] Last Admin: 02/23/22 21:32 Dose: 5 mg Metoprolol Tartrate (Metoprolol Tartrate 25 Mg Tab) 25 mg PO BID [facility] Last Admin: 02/23/22 21:33 Dose: Not Given Nitroglycerin (Nitroglycerin 0.4 Mg Tab Subl) 0.4 mg SL Q5M PRN PRN Reason: Chest Pain Pantoprazole Sodium (Pantoprazole 40 Mg Tab) 40 mg PO DAILY [facility] Last Admin: 02/23/22 11:25 Dose: 40 mg Potassium Chloride (Potassium Chloride Er 10 Meq Tab) 10 meq PO BID [facility] Last Admin: 02/23/22 21:32 Dose: 10 meq Quetiapine Fumarate (Quetiapine 100 Mg Tab) 100 mg PO BID [facility] Last Admin: 02/23/22 21:31 Dose: 100 mg Sertraline HCl (Sertraline 50 Mg Tab) 50 mg PO QDAY [facility] Last Admin: 02/23/22 11:25 Dose: 50 mg Results - Results Labs/Vitals: Laboratory Last Values WBC 5.9 K/mm3 (4.5-11.0) 02/23/22 04:58 RBC 3.26 M/mm3 (3.65-5.03) L 02/23/22 04:58 Hgb 9.4 gm/dl (10.1-14.3) L 02/23/22 04:58 Hct 28.9 % (30.3-42.9) L 02/23/22 04:58 MCV 88 fl (79-97) 02/23/22 04:58 MCH 29 pg (28-32) 02/23/22 04:58 MCHC 33 % (30-34) 02/23/22 04:58 RDW 15.8 % (13.2-15.2) H 02/23/22 04:58 Plt Count 261 K/mm3 (140-440) 02/23/22 04:58 Lymph % (Auto) 21.9 % (13.4-35.0) 02/23/22 04:58 [place] % (Auto) 8.9 % (0.0-7.3) H 02/23/22 04:58 Eos % (Auto) 4.6 % (0.0-4.3) H 02/23/22 04:58 Baso % (Auto) 1.1 % (0.0-1.8) 02/23/22 04:58 Lymph # (Auto) 1.3 K/mm3 (1.2-5.4) 02/23/22 04:58 [place] # (Auto) 0.5 K/mm3 (0.0-0.8) 02/23/22 04:58 Eos # (Auto) 0.3 K/mm3 (0.0-0.4) 02/23/22 04:58 Baso # (Auto) 0.1 K/mm3 (0.0-0.1) 02/23/22 04:58 Seg Neutrophils % 63.5 % (40.0-70.0) 02/23/22 04:58 Seg Neutrophils # 3.8 K/mm3 (1.8-7.7) 02/23/22 04:58 Sodium 140 mmol/L (137-145) 02/23/22 04:58 Potassium 4.4 mmol/L (3.6-5.0) 02/23/22 04:58 Chloride 104.3 mmol/L (98-107) 02/23/22 04:58 Carbon Dioxide 28 mmol/L (22-30) 02/23/22 04:58 Anion Gap 12 mmol/L 02/23/22 04:58 BUN 11 mg/dL (7-17) 02/23/22 04:58 Creatinine 0.6 mg/dL (0.6-1.2) 02/23/22 04:58 Estimated GFR > 60 ml/min 02/23/22 04:58 BUN/Creatinine Ratio 18 % 02/23/22 04:58 Glucose 126 mg/dL (65-100) H 02/23/22 04:58 POC Glucose 102 mg/dL (70-105) 02/24/22 06:22 Hemoglobin A1c 7.2 % (4-6) H 02/23/22 04:58 Calcium 8.8 mg/dL (8.4-10.2) 02/23/22 04:58 Total Bilirubin 0.20 mg/dL (0.1-1.2) 02/23/22 04:58 AST 12 units/L (5-40) 02/23/22 04:58 ALT 13 units/L (7-56) 02/23/22 04:58 Alkaline Phosphatase 112 units/L (35-129) 02/23/22 04:58 Total Protein 5.8 g/dL (6.3-8.2) L 02/23/22 04:58 Albumin 2.9 g/dL (3.9-5) L 02/23/22 04:58 Albumin/Globulin Ratio 1.0 % 02/23/22 04:58 Triglycerides 52 mg/dL (2-149) 02/23/22 04:58 Cholesterol 129 mg/dL (50-199) 02/23/22 04:58 LDL Cholesterol Direct 60 mg/dL (50-130) 02/23/22 04:58 HDL Cholesterol 65 mg/dL (40-59) H 02/23/22 04:58 Cholesterol/HDL Ratio 1.98 % 02/23/22 04:58 TSH 0.975 mlU/mL (0.270-4.200) 02/23/22 04:58 Urine Color Yellow (Yellow) 02/22/22 00:52 Urine Turbidity Clear (Clear) 02/22/22 00:52 Urine pH 5.0 (5.0-7.0) 02/22/22 00:52 Ur Specific [place] 1.017 (1.003-1.030) 02/22/22 00:52 Urine Protein <15 mg/dl mg/dL (Negative) 02/22/22 00:52 Urine Glucose (UA) Neg mg/dL (Negative) 02/22/22 00:52 Urine Ketones Neg mg/dL (Negative) 02/22/22 00:52 Urine Blood Neg (Negative) 02/22/22 00:52 Urine Nitrite Neg (Negative) 02/22/22 00:52 Urine Bilirubin Neg (Negative) 02/22/22 00:52 Urine Urobilinogen 2.0 mg/dL (<2.0) 02/22/22 00:52 Ur Leukocyte Esterase Sm (Negative) 02/22/22 00:52 Urine WBC (Auto) 17.0 /HPF (0.0-6.0) H 02/22/22 00:52 Urine RBC (Auto) 2.0 /HPF (0.0-6.0) 02/22/22 00:52 U Epithel Cells (Auto) 1.0 /HPF (0-13.0) 02/22/22 00:52 Urine Mucus Few /HPF 02/22/22 00:52 Last Vital Signs Temp 98.4 F 02/24/22 07:45 Pulse 63 02/24/22 07:45 Resp 16 02/24/22 07:45 BP 127/61 02/24/22 07:45 Pulse Ox 95 02/24/22 07:45
[2022-02-24] MEDS: POTASSIUM CHLORIDE ER 10 MEQ TAB PO SCH ×2 (09:37→21:43)
[2022-02-24] MEDS: ASCORBIC ACID 500 MG TAB PO SCH (09:37)
[2022-02-24] MEDS: APIXABAN 5 MG TAB PO SCH ×2 (09:37→21:44)
[2022-02-24] MEDS: SERTRALINE 50 MG TAB PO SCH (09:37)
[2022-02-24] MEDS: METOPROLOL TARTRATE 25 MG TAB PO SCH ×2 (09:38→21:44)
[2022-02-24] MEDS: AMIODARONE 200 MG TAB PO SCH (09:38)
[2022-02-24] MEDS: PANTOPRAZOLE 40 MG TAB PO SCH (09:38)
[2022-02-24] MEDS: QUEtiapine 100 MG TAB PO SCH ×2 (09:38→21:44)
[2022-02-24] MEDS: LISINOPRIL 10 MG TAB PO SCH (09:39)
[2022-02-24] MEDS: hydroCHLOROthiazide 25 MG TAB PO SCH (09:39)
--- NOTE | 2022-02-24 12:29 | Progress Note ---
<AISHA GUZMAN - Last Filed: 02/24/22 12:31> Assessment and Plan - Patient Problems (1) UTI (urinary tract infection) Current Visit: Yes Status: Acute Plan to address problem: Urine WBC 17 UC contaminated, pending repeat UC collection BC NGTD Start Nitrofurantonin, deescalate as appropriate (2) A-fib Current Visit: Yes Status: Chronic Plan to address problem: On BB, amiodarone and Eliquis EKG as needed for complaints of palpitations and rapid heart rates (3) DM2 (diabetes mellitus, type 2) Current Visit: Yes Status: Acute Plan to address problem: uncontrolled A1c 7.2 POC BG monitoring Scheduled Lantus 5U, and SSI coverage On consistent carb diet (4) Hypertension Current Visit: Yes Status: Acute Plan to address problem: Monitor BP per protocol Continue antihypertensive meds (5) Suicide attempt Current Visit: Yes Status: Acute Plan to address problem: Suicide precautions Management per primary History Interval history: 87 year old female with history of A.fib (on Eliquis), DM2, hypothyroidism, HTN, major depression disorder and anxiety who was admitted for suicidal ideation. Pt is seen in rec room this morning. No overnight events reported. Hospitalist Physical - Constitutional Vitals: Temp Pulse Resp BP Pulse Ox 98.4 F 63 16 127/61 95 02/24/22 07:45 02/24/22 09:38 02/24/22 07:45 02/24/22 09:38 02/24/22 07:45 General appearance: Present: no acute distress - EENT Eyes: Present: PERRL, EOM intact ENT: hearing intact, other (wears dentures and partial veneers) - Neck Neck: Present: supple, normal ROM - Respiratory Respiratory effort: normal Respiratory: bilateral: diminished (bases) - Cardiovascular Heart Sounds: Present: S1 & S2. Absent: systolic murmur, diastolic murmur - Extremities Extremities: pulses intact, No edema, normal temperature Peripheral Pulses: within normal limits - Abdominal General gastrointestinal: soft, non-tender, non-distended, normal bowel sounds - Integumentary Integumentary: Present: clear, warm, dry - Psychiatric Psychiatric: cooperative - Neurologic Neurologic: CNII-XII intact, other (amb with wheelchair at baseline ) Results - Labs CBC & Chem 7: 02/23/22 04:58 06/15/22 04:58 Labs: Laboratory Last Values WBC 5.9 K/mm3 (4.5-11.0) 02/23/22 04:58 RBC 3.26 M/mm3 (3.65-5.03) L 02/23/22 04:58 Hgb 9.4 gm/dl (10.1-14.3) L 02/23/22 04:58 Hct 28.9 % (30.3-42.9) L 02/23/22 04:58 MCV 88 fl (79-97) 02/23/22 04:58 MCH 29 pg (28-32) 02/23/22 04:58 MCHC 33 % (30-34) 02/23/22 04:58 RDW 15.8 % (13.2-15.2) H 02/23/22 04:58 Plt Count 261 K/mm3 (140-440) 02/23/22 04:58 Lymph % (Auto) 21.9 % (13.4-35.0) 02/23/22 04:58 [place] % (Auto) 8.9 % (0.0-7.3) H 02/23/22 04:58 Eos % (Auto) 4.6 % (0.0-4.3) H 02/23/22 04:58 Baso % (Auto) 1.1 % (0.0-1.8) 02/23/22 04:58 Lymph # (Auto) 1.3 K/mm3 (1.2-5.4) 02/23/22 04:58 [place] # (Auto) 0.5 K/mm3 (0.0-0.8) 02/23/22 04:58 Eos # (Auto) 0.3 K/mm3 (0.0-0.4) 02/23/22 04:58 Baso # (Auto) 0.1 K/mm3 (0.0-0.1) 02/23/22 04:58 Seg Neutrophils % 63.5 % (40.0-70.0) 02/23/22 04:58 Seg Neutrophils # 3.8 K/mm3 (1.8-7.7) 02/23/22 04:58 Sodium 140 mmol/L (137-145) 02/23/22 04:58 Potassium 4.4 mmol/L (3.6-5.0) 02/23/22 04:58 Chloride 104.3 mmol/L (98-107) 02/23/22 04:58 Carbon Dioxide 28 mmol/L (22-30) 02/23/22 04:58 Anion Gap 12 mmol/L 02/23/22 04:58 BUN 11 mg/dL (7-17) 02/23/22 04:58 Creatinine 0.6 mg/dL (0.6-1.2) 02/23/22 04:58 Estimated GFR > 60 ml/min 02/23/22 04:58 BUN/Creatinine Ratio 18 % 02/23/22 04:58 Glucose 126 mg/dL (65-100) H 02/23/22 04:58 POC Glucose 192 mg/dL (70-105) H 02/24/22 11:33 Hemoglobin A1c 7.2 % (4-6) H 02/23/22 04:58 Calcium 8.8 mg/dL (8.4-10.2) 02/23/22 04:58 Total Bilirubin 0.20 mg/dL (0.1-1.2) 02/23/22 04:58 AST 12 units/L (5-40) 02/23/22 04:58 ALT 13 units/L (7-56) 02/23/22 04:58 Alkaline Phosphatase 112 units/L (35-129) 02/23/22 04:58 Total Protein 5.8 g/dL (6.3-8.2) L 02/23/22 04:58 Albumin 2.9 g/dL (3.9-5) L 02/23/22 04:58 Albumin/Globulin Ratio 1.0 % 02/23/22 04:58 Triglycerides 52 mg/dL (2-149) 02/23/22 04:58 Cholesterol 129 mg/dL (50-199) 02/23/22 04:58 LDL Cholesterol Direct 60 mg/dL (50-130) 02/23/22 04:58 HDL Cholesterol 65 mg/dL (40-59) H 02/23/22 04:58 Cholesterol/HDL Ratio 1.98 % 02/23/22 04:58 TSH 0.975 mlU/mL (0.270-4.200) 02/23/22 04:58 Urine Color Yellow (Yellow) 02/22/22 00:52 Urine Turbidity Clear (Clear) 02/22/22 00:52 Urine pH 5.0 (5.0-7.0) 02/22/22 00:52 Ur Specific [place] 1.017 (1.003-1.030) 02/22/22 00:52 Urine Protein <15 mg/dl mg/dL (Negative) 02/22/22 00:52 Urine Glucose (UA) Neg mg/dL (Negative) 02/22/22 00:52 Urine Ketones Neg mg/dL (Negative) 02/22/22 00:52 Urine Blood Neg (Negative) 02/22/22 00:52 Urine Nitrite Neg (Negative) 02/22/22 00:52 Urine Bilirubin Neg (Negative) 02/22/22 00:52 Urine Urobilinogen 2.0 mg/dL (<2.0) 02/22/22 00:52 Ur Leukocyte Esterase Sm (Negative) 02/22/22 00:52 Urine WBC (Auto) 17.0 /HPF (0.0-6.0) H 02/22/22 00:52 Urine RBC (Auto) 2.0 /HPF (0.0-6.0) 02/22/22 00:52 U Epithel Cells (Auto) 1.0 /HPF (0-13.0) 02/22/22 00:52 Urine Mucus Few /HPF 02/22/22 00:52 Microbiology: Microbiology 02/23/22 05:06 Peripheral/Venous Blood Culture - Preliminary NO GROWTH AFTER 24 HOURS 02/23/22 04:58 Peripheral/Venous Blood Culture - Preliminary NO GROWTH AFTER 24 HOURS Arroyo/IV: Voiding Method Toilet Active Medications - Current Medications Current Medications: Generic Name Dose Route Start Last Admin Trade Name Freq PRN Reason Stop Dose Admin Albuterol 2.5 mg 02/22/22 12:00 02/22/22 18:30 Albuterol 2.5 Mg/3 Ml Nebu IH 2.5 mg Q4HRT PRN Administration Shortness Of Breath Amiodarone HCl 200 mg 02/22/22 10:00 02/24/22 09:38 Amiodarone 200 Mg Tab PO 200 mg DAILY YANA Administration Apixaban 5 mg 02/22/22 11:00 02/24/22 09:37 Apixaban 5 Mg Tab PO 5 mg Q12HR YANA Administration Protocol Arformoterol Tartrate 15 mcg 02/22/22 12:00 02/23/22 21:05 Arformoterol 15 Mcg/2 Ml Nebu IH 15 mcg Q12HRT YANA Administration Ascorbic Acid 500 mg 02/22/22 10:00 02/24/22 09:37 Ascorbic Acid 500 Mg Tab PO 500 mg QDAY YANA Administration Budesonide 1 mg 02/22/22 12:00 02/23/22 21:05 Budesonide 0.5 Mg/2 Ml Nebu IH 1 mg Q12HRT YANA Administration Clonazepam 0.5 mg 02/23/22 10:48 Clonazepam 0.5 Mg Tab PO BID PRN Anxiety Furosemide 20 mg 02/22/22 10:00 02/24/22 06:13 Furosemide 20 Mg Tab PO 20 mg 0600,1800 [facility] Administration Hydrochlorothiazide 25 mg 02/22/22 10:00 02/24/22 09:39 Hydrochlorothiazide 25 Mg Tab PO 25 mg QDAY [facility] Administration Insulin Human Lispro 0 unit 02/22/22 11:30 02/24/22 11:49 Insulin Lispro 100 Unit/Ml SUB-Q 1 unit ACHS [facility] Administration Protocol Levothyroxine Sodium 100 mcg 02/22/22 10:00 02/24/22 06:12 Levothyroxine 100 Mcg Tab PO 100 mcg DAILY@0600 [facility] Administration Lisinopril 10 mg 02/22/22 11:00 02/24/22 09:39 Lisinopril 10 Mg Tab PO Not Given QDAY [facility] Melatonin 5 mg 02/22/22 01:00 02/23/22 21:32 Melatonin 5 Mg Tab PO 5 mg QHS [facility] Administration Metoprolol Tartrate 25 mg 02/22/22 10:00 02/24/22 09:38 Metoprolol Tartrate 25 Mg Tab PO 25 mg BID [facility] Administration Nitrofurantoin Macrocrystals 100 mg 02/24/22 13:00 Nitrofurantoin Monohyd/M-Cryst 100 Mg Cap PO 03/01/22 12:59 Q12HR [facility] Nitroglycerin 0.4 mg 02/22/22 09:30 Nitroglycerin 0.4 Mg Tab Subl SL Q5M PRN Chest Pain Pantoprazole Sodium 40 mg 02/22/22 11:00 02/24/22 09:38 Pantoprazole 40 Mg Tab PO 40 mg DAILY YANA Administration Potassium Chloride 10 meq 02/22/22 11:30 02/24/22 09:37 Potassium Chloride Er 10 Meq Tab PO 10 meq BID YANA Administration Quetiapine Fumarate 100 mg 02/22/22 10:00 02/24/22 09:38 Quetiapine 100 Mg Tab PO 100 mg BID YANA Administration Sertraline HCl 50 mg 02/22/22 10:00 02/24/22 09:37 Sertraline 50 Mg Tab PO 50 mg QDAY YANA Administration Nutrition/Malnutrition Assess - Dietary Evaluation Nutrition/Malnutrition Findings: Nutrition Notes Start: 02/22/22 15:25 Freq: Status: Active Protocol: Document 02/22/22 15:25 ANGELA (Rec: 02/22/22 15:34 ANGELA [id number]) Nutrition Notes Need for Assessment generated from: Low BMI Initial or Follow up Assessment Other Pertinent Diagnosis Major Depressive Disorder, Suicidal Ideation. Current Diet Cardiac/Consistent Carbohydrates Diet (since B ). Height 5 ft 4.57 in Weight 54.7 kg [place] Body Weight (kg) 55.84 BMI 20.3 Intake Prior to Admission Good Weight change and time frame POt denies having loss body weight [employer]. Weight Status Appropriate Subjective/Other Information RD consult for Low BMI assessment. Anthropometric data has been corrected on the chart and Pt is no longer Low BMI. No reports on Pt's PO intake of meals at the time. Pt is on Room Air, O2 saturation @ 94%, according to Vital Signs notes. Percent of energy/protein needs met: Prescribed Cardiac/Consistent Carbohydrates Diet provides for energy/protein needs (1, 977 Kcal/86 g) during LOS. Nutrition Intervention Revisit per MD consult or patient Sign Off request: Additional Comments Continue monitoring food tolerance, %PO intake of meals , and BM. <CED MEDEROS E - Last Filed: 02/24/22 16:34> Assessment and Plan Assessment and plan: I saw and evaluated the patient. I agree with the findings and the plan of care as documented in the Nurse Practitioner's~note, with the following corrections and additions. Hospitalist Physical - Constitutional Vitals: Temp Pulse Resp BP Pulse Ox 98.4 F 63 16 127/61 95 02/24/22 07:45 02/24/22 09:38 02/24/22 07:45 02/24/22 09:38 02/24/22 07:45 Results - Labs CBC & Chem 7: 02/24/22 10:27 02/24/22 10:27 Labs: Laboratory Last Values WBC 5.6 K/mm3 (4.5-11.0) 02/24/22 10: RBC 3.36 M/mm3 (3.65-5.03) L 02/24/22 10:27 Hgb 9.8 gm/dl (10.1-14.3) L 02/24/22 10:27 Hct 29.7 % (30.3-42.9) L 02/24/22 10: MCV 89 fl (79-97) 02/24/22 10: MCH 29 pg (28-32) 02/24/22 10: MCHC 33 % (30-34) 02/24/22 10: RDW 16.2 % (13.2-15.2) H 02/24/22 10: Plt Count 252 K/mm3 (140-440) 02/24/22 10:27 Lymph % (Auto) 13.9 % (13.4-35.0) 02/24/22 10:27 [place] % (Auto) 8.1 % (0.0-7.3) H 02/24/22 10: Eos % (Auto) 6.2 % (0.0-4.3) H 02/24/22 10:27 Baso % (Auto) 1.0 % (0.0-1.8) 02/24/22 10:27 Lymph # (Auto) 0.8 K/mm3 (1.2-5.4) L 02/24/22 10:27 [place] # (Auto) 0.5 K/mm3 (0.0-0.8) 02/24/22 10: Eos # (Auto) 0.3 K/mm3 (0.0-0.4) 02/24/22 10: Baso # (Auto) 0.1 K/mm3 (0.0-0.1) 02/24/22 10: Seg Neutrophils % 70.8 % (40.0-70.0) H 02/24/22 10: Seg Neutrophils # 3.9 K/mm3 (1.8-7.7) 02/24/22 10: Sodium 138 mmol/L (137-145) 02/24/22 10:27 Potassium 4.0 mmol/L (3.6-5.0) 02/24/22 10:27 Chloride 101.7 mmol/L (98-107) 02/24/22 10:27 Carbon Dioxide 26 mmol/L (22-30) 02/24/22 10:27 Anion Gap 14 mmol/L 02/24/22 10:27 BUN 12 mg/dL (7-17) 02/24/22 10:27 Creatinine 0.6 mg/dL (0.6-1.2) 02/24/22 10:27 Estimated GFR > 60 ml/min 02/24/22 10:27 BUN/Creatinine Ratio 20 % 02/24/22 10:27 Glucose 202 mg/dL (65-100) H 02/24/22 10:27 POC Glucose 113 mg/dL (70-105) H 02/24/22 16:21 Hemoglobin A1c 7.2 % (4-6) H 02/23/22 04:58 Calcium 8.6 mg/dL (8.4-10.2) 02/24/22 10:27 Total Bilirubin 0.20 mg/dL (0.1-1.2) 02/23/22 04:58 AST 12 units/L (5-40) 02/23/22 04:58 ALT 13 units/L (7-56) 02/23/22 04:58 Alkaline Phosphatase 112 units/L (35-129) 02/23/22 04:58 Total Protein 5.8 g/dL (6.3-8.2) L 02/23/22 04:58 Albumin 2.9 g/dL (3.9-5) L 02/23/22 04:58 Albumin/Globulin Ratio 1.0 % 02/23/22 04:58 Triglycerides 52 mg/dL (2-149) 02/23/22 04:58 Cholesterol 129 mg/dL (50-199) 02/23/22 04:58 LDL Cholesterol Direct 60 mg/dL (50-130) 02/23/22 04:58 HDL Cholesterol 65 mg/dL (40-59) H 02/23/22 04:58 Cholesterol/HDL Ratio 1.98 % 02/23/22 04:58 TSH 0.975 mlU/mL (0.270-4.200) 02/23/22 04:58 Urine Color Yellow (Yellow) 02/22/22 00:52 Urine Turbidity Clear (Clear) 02/22/22 00:52 Urine pH 5.0 (5.0-7.0) 02/22/22 00:52 Ur Specific [place] 1.017 (1.003-1.030) 02/22/22 00:52 Urine Protein <15 mg/dl mg/dL (Negative) 02/22/22 00:52 Urine Glucose (UA) Neg mg/dL (Negative) 02/22/22 00:52 Urine Ketones Neg mg/dL (Negative) 02/22/22 00:52 Urine Blood Neg (Negative) 02/22/22 00:52 Urine Nitrite Neg (Negative) 02/22/22 00:52 Urine Bilirubin Neg (Negative) 02/22/22 00:52 Urine Urobilinogen 2.0 mg/dL (<2.0) 02/22/22 00:52 Ur Leukocyte Esterase Sm (Negative) 02/22/22 00:52 Urine WBC (Auto) 17.0 /HPF (0.0-6.0) H 02/22/22 00:52 Urine RBC (Auto) 2.0 /HPF (0.0-6.0) 02/22/22 00:52 U Epithel Cells (Auto) 1.0 /HPF (0-13.0) 02/22/22 00:52 Urine Mucus Few /HPF 02/22/22 00:52 Microbiology: Microbiology 02/22/22 00:52 Urine,Clean Catch Urine Culture - Final 02/23/22 05:06 Peripheral/Venous Blood Culture - Preliminary NO GROWTH AFTER 24 HOURS 02/23/22 04:58 Peripheral/Venous Blood Culture - Preliminary NO GROWTH AFTER 24 HOURS Arroyo/IV: Voiding Method Toilet Active Medications - Current Medications Current Medications: Generic Name Dose Route Start Last Admin Trade Name Freq PRN Reason Stop Dose Admin Albuterol 2.5 mg 02/22/22 12:00 02/22/22 18:30 Albuterol 2.5 Mg/3 Ml Nebu IH 2.5 mg Q4HRT PRN Administration Shortness Of Breath Amiodarone HCl 200 mg 02/22/22 10:00 02/24/22 09:38 Amiodarone 200 Mg Tab PO 200 mg DAILY YANA Administration Apixaban 5 mg 02/22/22 11:00 02/24/22 09:37 Apixaban 5 Mg Tab PO 5 mg Q12HR [facility] Administration Protocol Arformoterol Tartrate 15 mcg 02/22/22 12:00 02/24/22 14:39 Arformoterol 15 Mcg/2 Ml Nebu IH Not Given Q12HRT [facility] Ascorbic Acid 500 mg 02/22/22 10:00 02/24/22 09:37 Ascorbic Acid 500 Mg Tab PO 500 mg QDAY [facility] Administration Budesonide 1 mg 02/22/22 12:00 02/24/22 14:39 Budesonide 0.5 Mg/2 Ml Nebu IH Not Given Q12HRT [facility] Clonazepam 0.5 mg 02/23/22 10:48 Clonazepam 0.5 Mg Tab PO BID PRN Anxiety Furosemide 20 mg 02/22/22 10:00 02/24/22 06:13 Furosemide 20 Mg Tab PO 20 mg 0600,1800 [facility] Administration Hydrochlorothiazide 25 mg 02/22/22 10:00 02/24/22 09:39 Hydrochlorothiazide 25 Mg Tab PO 25 mg QDAY [facility] Administration Insulin Glargine 5 units 02/24/22 13:00 02/24/22 12:59 Insulin Glargine 100 Units/Ml SUB-Q 5 units QAMDIAB [facility] Administration Insulin Human Lispro 0 unit 02/22/22 11:30 02/24/22 16:33 Insulin Lispro 100 Unit/Ml SUB-Q Not Given ACHS [facility] Protocol Levothyroxine Sodium 100 mcg 02/22/22 10:00 02/24/22 06:12 Levothyroxine 100 Mcg Tab PO 100 mcg DAILY@0600 [facility] Administration Lisinopril 10 mg 02/22/22 11:00 02/24/22 09:39 Lisinopril 10 Mg Tab PO Not Given QDAY YANA Melatonin 5 mg 02/22/22 01:00 02/23/22 21:32 Melatonin 5 Mg Tab PO 5 mg QHS [facility] Administration Metoprolol Tartrate 25 mg 02/22/22 10:00 02/24/22 09:38 Metoprolol Tartrate 25 Mg Tab PO 25 mg BID [facility] Administration Nitrofurantoin Macrocrystals 100 mg 02/24/22 13:00 02/24/22 12:59 Nitrofurantoin Monohyd/M-Cryst 100 Mg Cap PO 03/01/22 12:59 100 mg Q12HR YANA Administration Nitroglycerin 0.4 mg 02/22/22 09:30 Nitroglycerin 0.4 Mg Tab Subl SL Q5M PRN Chest Pain Pantoprazole Sodium 40 mg 02/22/22 11:00 02/24/22 09:38 Pantoprazole 40 Mg Tab PO 40 mg DAILY YANA Administration Potassium Chloride 10 meq 02/22/22 11:30 02/24/22 09:37 Potassium Chloride Er 10 Meq Tab PO 10 meq BID YANA Administration Quetiapine Fumarate 100 mg 02/22/22 10:00 02/24/22 09:38 Quetiapine 100 Mg Tab PO 100 mg BID YANA Administration Sertraline HCl 50 mg 02/22/22 10:00 02/24/22 09:37 Sertraline 50 Mg Tab PO 50 mg QDAY YANA Administration Nutrition/Malnutrition Assess - Dietary Evaluation Nutrition/Malnutrition Findings: Nutrition Notes Start: 02/22/22 15:25 Freq: Status: Active Protocol: Document 02/22/22 15:25 ANGELA (Rec: 02/22/22 15:34 ANGELA [id number]) Nutrition Notes Need for Assessment generated from: Low BMI Initial or Follow up Assessment Other Pertinent Diagnosis Major Depressive Disorder, Suicidal Ideation. Current Diet Cardiac/Consistent Carbohydrates Diet (since B ). Height 5 ft 4.57 in Weight 54.7 kg [place] Body Weight (kg) 55.84 BMI 20.3 Intake Prior to Admission Good Weight change and time frame POt denies having loss body weight [employer]. Weight Status Appropriate Subjective/Other Information RD consult for Low BMI assessment. Anthropometric data has been corrected on the chart and Pt is no longer Low BMI. No reports on Pt's PO intake of meals at the time. Pt is on Room Air, O2 saturation @ 94%, according to Vital Signs notes. Percent of energy/protein needs met: Prescribed Cardiac/Consistent Carbohydrates Diet provides for energy/protein needs (1, 977 Kcal/86 g) during LOS. Nutrition Intervention Revisit per MD consult or patient Sign Off request: Additional Comments Continue monitoring food tolerance, %PO intake of meals , and BM.
[2022-02-24 12:49] LABS: Basophils # (Auto) 0.1 K/mm3 (0.0-0.1); Eosinophils # (Auto) 0.3 K/mm3 (0.0-0.4); Eosinophils % (Auto) 6.2 % (0.0-4.3); Hematocrit 29.7 % (30.3-42.9); Hemoglobin 9.8 gm/dl (10.1-14.3); Lymphocytes # (Auto) 0.8 K/mm3 (1.2-5.4); Lymphocytes % (Auto) 13.9 % (13.4-35.0); Mean Corpuscular HGB Conc 33 % (30-34); Mean Corpuscular Volume 89 fl (79-97); Monocytes # (Auto) 0.5 K/mm3 (0.0-0.8); Monocytes % (Auto) 8.1 % (0.0-7.3); Platelet Count 252 K/mm3 (140-440); Red Blood Count 3.36 M/mm3 (3.65-5.03); Red Cell Distribution Width 16.2 % (13.2-15.2)
[2022-02-24] MEDS: INSULIN GLARGINE 100 UNITS/ML SUB-Q SCH (12:59)
[2022-02-24] MEDS: NITROFURANTOIN MONOHYD/M-CRYST 100 MG CAP PO SCH ×2 (12:59→21:45)
[2022-02-24 13:07] LABS: Blood Urea Nitrogen 12 mg/dL (7-17); Calcium 8.6 mg/dL (8.4-10.2); Hemolysis Index 1
[2022-02-24 13:08] LABS: BUN/Creatinine Ratio 20
[2022-02-24] MEDS: ARFORMOTEROL 15 MCG/2 ML NEBU IH SCH (14:39)
[2022-02-24] MEDS: BUDESONIDE 0.5 MG/2 ML NEBU IH SCH (14:39)
[2022-02-24] MEDS: MELATONIN 5 MG TAB PO SCH (21:44)
[2022-02-24] MEDS: clonazePAM 0.5 MG TAB PO PRN (21:46)
[2022-02-25] MEDS: BUDESONIDE 0.5 MG/2 ML NEBU IH SCH ×2 (05:46→09:00)
[2022-02-25] MEDS: ARFORMOTEROL 15 MCG/2 ML NEBU IH SCH ×2 (05:46→09:00)
[2022-02-25] MEDS: LEVOTHYROXINE 100 MCG TAB PO SCH (07:23)
[2022-02-25] MEDS: FUROSEMIDE 20 MG TAB PO SCH ×2 (07:23→17:41)
[2022-02-25] MEDS: INSULIN GLARGINE 100 UNITS/ML SUB-Q SCH (07:44)
[2022-02-25] MEDS: INSULIN LISPRO 100 UNIT/ML SUB-Q SCH ×4 (07:45→21:22)
[2022-02-25] MEDS: NITROFURANTOIN MONOHYD/M-CRYST 100 MG CAP PO SCH ×2 (09:04→21:04)
[2022-02-25] MEDS: QUEtiapine 100 MG TAB PO SCH ×2 (09:04→21:05)
[2022-02-25] MEDS: PANTOPRAZOLE 40 MG TAB PO SCH (09:04)
[2022-02-25] MEDS: hydroCHLOROthiazide 25 MG TAB PO SCH (09:04)
[2022-02-25] MEDS: APIXABAN 5 MG TAB PO SCH ×2 (09:05→21:04)
[2022-02-25] MEDS: clonazePAM 0.5 MG TAB PO PRN ×2 (09:05→21:06)
[2022-02-25] MEDS: POTASSIUM CHLORIDE ER 10 MEQ TAB PO SCH ×2 (09:05→21:04)
[2022-02-25] MEDS: LISINOPRIL 10 MG TAB PO SCH (09:05)
[2022-02-25] MEDS: ASCORBIC ACID 500 MG TAB PO SCH (09:05)
[2022-02-25] MEDS: AMIODARONE 200 MG TAB PO SCH (09:05)
[2022-02-25] MEDS: METOPROLOL TARTRATE 25 MG TAB PO SCH ×2 (09:05→21:05)
[2022-02-25] MEDS: SERTRALINE 50 MG TAB PO SCH (09:05)
--- NOTE | 2022-02-25 09:42 | Progress Note ---
<AISHA GUZMAN - Last Filed: 02/25/22 09:42> Assessment and Plan - Patient Problems (1) UTI (urinary tract infection) Current Visit: Yes Status: Acute Plan to address problem: Urine WBC 17 UC contaminated, pending repeat UC collection BC NGTD Start Nitrofurantonin x5 days to end on 03/01, deescalate as appropriate (2) A-fib Current Visit: Yes Status: Chronic Plan to address problem: On BB, amiodarone and Eliquis EKG as needed for complaints of palpitations and rapid heart rates (3) DM2 (diabetes mellitus, type 2) Current Visit: Yes Status: Acute Plan to address problem: uncontrolled A1c 7.2 POC BG monitoring Scheduled Lantus 5U, and SSI coverage On consistent carb diet (4) Hypertension Current Visit: Yes Status: Acute Plan to address problem: Monitor BP per protocol Continue antihypertensive meds (5) Suicide attempt Current Visit: Yes Status: Acute Plan to address problem: Suicide precautions Management per primary History Interval history: 87 year old female with history of A.fib (on Eliquis), DM2, hypothyroidism, HTN, major depression disorder and anxiety who was admitted for suicidal ideation. Pt is seen in rec room this morning. Pt appears anxious and asked multiple times during assessment "can I go home today?". States that she lives with her daughter and misses her. No overnight events reported. Hospitalist Physical - Physical exam Narrative exam: General appearance: Present: no acute distress, oriented to self and place - EENT Eyes: Present: PERRL, EOM intact ENT: hearing intact, other (wears dentures and partial veneers) - Neck Neck: Present: supple, normal ROM - Respiratory Respiratory effort: normal Respiratory: bilateral: diminished (bases) - Cardiovascular Heart Sounds: Present: S1 & S2. Absent: systolic murmur, diastolic murmur - Extremities Extremities: pulses intact, No edema, normal temperature Peripheral Pulses: within normal limits - Abdominal General gastrointestinal: soft, non-tender, non-distended, normal bowel sounds - Integumentary Integumentary: Present: clear, warm, dry - Psychiatric Psychiatric: cooperative - Neurologic Neurologic: CNII-XII intact, other (amb with wheelchair at baseline ) - Constitutional Vitals: Temp Pulse Resp BP Pulse Ox 98.1 F 65 16 122/53 99 02/25/22 08:59 02/25/22 08:59 02/25/22 08:59 02/25/22 08:59 02/25/22 08:59 General appearance: Present: no acute distress Results - Labs CBC & Chem 7: 02/24/22 10:27 02/24/22 10:27 Labs: Laboratory Last Values WBC 5.6 K/mm3 (4.5-11.0) 02/24/22 10:27 RBC 3.36 M/mm3 (3.65-5.03) L 02/24/22 10:27 Hgb 9.8 gm/dl (10.1-14.3) L 02/24/22 10:27 Hct 29.7 % (30.3-42.9) L 02/24/22 10: MCV 89 fl (79-97) 02/24/22 10: MCH 29 pg (28-32) 02/24/22 10: MCHC 33 % (30-34) 02/24/22 10: RDW 16.2 % (13.2-15.2) H 02/24/22 10:27 Plt Count 252 K/mm3 (140-440) 02/24/22 10:27 Lymph % (Auto) 13.9 % (13.4-35.0) 02/24/22 10:27 [place] % (Auto) 8.1 % (0.0-7.3) H 02/24/22 10:27 Eos % (Auto) 6.2 % (0.0-4.3) H 02/24/22 10:27 Baso % (Auto) 1.0 % (0.0-1.8) 02/24/22 10:27 Lymph # (Auto) 0.8 K/mm3 (1.2-5.4) L 02/24/22 10:27 [place] # (Auto) 0.5 K/mm3 (0.0-0.8) 02/24/22 10: Eos # (Auto) 0.3 K/mm3 (0.0-0.4) 02/24/22 10:27 Baso # (Auto) 0.1 K/mm3 (0.0-0.1) 02/24/22 10:27 Seg Neutrophils % 70.8 % (40.0-70.0) H 02/24/22 10:27 Seg Neutrophils # 3.9 K/mm3 (1.8-7.7) 02/24/22 10:27 Sodium 138 mmol/L (137-145) 02/24/22 10:27 Potassium 4.0 mmol/L (3.6-5.0) 02/24/22 10:27 Chloride 101.7 mmol/L (98-107) 02/24/22 10:27 Carbon Dioxide 26 mmol/L (22-30) 02/24/22 10:27 Anion Gap 14 mmol/L 02/24/22 10:27 BUN 12 mg/dL (7-17) 02/24/22 10:27 Creatinine 0.6 mg/dL (0.6-1.2) 02/24/22 10:27 Estimated GFR > 60 ml/min 02/24/22 10:27 BUN/Creatinine Ratio 20 % 02/24/22 10:27 Glucose 202 mg/dL (65-100) H 02/24/22 10:27 POC Glucose 105 mg/dL (70-105) 02/25/22 06:49 Hemoglobin A1c 7.2 % (4-6) H 02/23/22 04:58 Calcium 8.6 mg/dL (8.4-10.2) 02/24/22 10:27 Total Bilirubin 0.20 mg/dL (0.1-1.2) 02/23/22 04:58 AST 12 units/L (5-40) 02/23/22 04:58 ALT 13 units/L (7-56) 02/23/22 04:58 Alkaline Phosphatase 112 units/L (35-129) 02/23/22 04:58 Total Protein 5.8 g/dL (6.3-8.2) L 02/23/22 04:58 Albumin 2.9 g/dL (3.9-5) L 02/23/22 04:58 Albumin/Globulin Ratio 1.0 % 02/23/22 04:58 Triglycerides 52 mg/dL (2-149) 02/23/22 04:58 Cholesterol 129 mg/dL (50-199) 02/23/22 04:58 LDL Cholesterol Direct 60 mg/dL (50-130) 02/23/22 04:58 HDL Cholesterol 65 mg/dL (40-59) H 02/23/22 04:58 Cholesterol/HDL Ratio 1.98 % 02/23/22 04:58 TSH 0.975 mlU/mL (0.270-4.200) 02/23/22 04:58 Urine Color Yellow (Yellow) 02/22/22 00:52 Urine Turbidity Clear (Clear) 02/22/22 00:52 Urine pH 5.0 (5.0-7.0) 02/22/22 00:52 Ur Specific [place] 1.017 (1.003-1.030) 02/22/22 00:52 Urine Protein <15 mg/dl mg/dL (Negative) 02/22/22 00:52 Urine Glucose (UA) Neg mg/dL (Negative) 02/22/22 00:52 Urine Ketones Neg mg/dL (Negative) 02/22/22 00:52 Urine Blood Neg (Negative) 02/22/22 00:52 Urine Nitrite Neg (Negative) 02/22/22 00:52 Urine Bilirubin Neg (Negative) 02/22/22 00:52 Urine Urobilinogen 2.0 mg/dL (<2.0) 02/22/22 00:52 Ur Leukocyte Esterase Sm (Negative) 02/22/22 00:52 Urine WBC (Auto) 17.0 /HPF (0.0-6.0) H 02/22/22 00:52 Urine RBC (Auto) 2.0 /HPF (0.0-6.0) 02/22/22 00:52 U Epithel Cells (Auto) 1.0 /HPF (0-13.0) 02/22/22 00:52 Urine Mucus Few /HPF 02/22/22 00:52 Microbiology: Microbiology 02/23/22 05:06 Peripheral/Venous Blood Culture - Preliminary NO GROWTH AFTER 48 HOURS 02/23/22 04:58 Peripheral/Venous Blood Culture - Preliminary NO GROWTH AFTER 48 HOURS 02/22/22 00:52 Urine,Clean Catch Urine Culture - Final Arroyo/IV: Voiding Method Toilet Active Medications - Current Medications Current Medications: Generic Name Dose Route Start Last Admin Trade Name Freq PRN Reason Stop Dose Admin Albuterol 2.5 mg 02/22/22 12:00 02/22/22 18:30 Albuterol 2.5 Mg/3 Ml Nebu IH 2.5 mg Q4HRT PRN Administration Shortness Of Breath Amiodarone HCl 200 mg 02/22/22 10:00 02/25/22 09:05 Amiodarone 200 Mg Tab PO 200 mg DAILY YANA Administration Apixaban 5 mg 02/22/22 11:00 02/25/22 09:05 Apixaban 5 Mg Tab PO 5 mg Q12HR YANA Administration Protocol Arformoterol Tartrate 15 mcg 02/22/22 12:00 02/25/22 05:46 Arformoterol 15 Mcg/2 Ml Nebu IH Not Given Q12HRT YANA Ascorbic Acid 500 mg 02/22/22 10:00 02/25/22 09:05 Ascorbic Acid 500 Mg Tab PO 500 mg QDAY YANA Administration Budesonide 1 mg 02/22/22 12:00 02/25/22 05:46 Budesonide 0.5 Mg/2 Ml Nebu IH Not Given Q12HRT [facility] Clonazepam 0.5 mg 02/23/22 10:48 02/25/22 09:05 Clonazepam 0.5 Mg Tab PO 0.5 mg BID PRN Administration Anxiety Furosemide 20 mg 02/22/22 10:00 02/25/22 07:23 Furosemide 20 Mg Tab PO 20 mg 0600,1800 [facility] Administration Hydrochlorothiazide 25 mg 02/22/22 10:00 02/25/22 09:04 Hydrochlorothiazide 25 Mg Tab PO 25 mg QDAY [facility] Administration Insulin Glargine 5 units 02/24/22 13:00 02/25/22 07:44 Insulin Glargine 100 Units/Ml SUB-Q 5 units QAMDIAB [facility] Administration Insulin Human Lispro 0 unit 02/22/22 11:30 02/25/22 07:45 Insulin Lispro 100 Unit/Ml SUB-Q Not Given ACHS [facility] Protocol Levothyroxine Sodium 100 mcg 02/22/22 10:00 02/25/22 07:23 Levothyroxine 100 Mcg Tab PO 100 mcg DAILY@0600 [facility] Administration Lisinopril 10 mg 02/22/22 11:00 02/24/22 09:39 Lisinopril 10 Mg Tab PO Not Given QDAY YANA Melatonin 5 mg 02/22/22 01:00 02/24/22 21:44 Melatonin 5 Mg Tab PO 5 mg QHS [facility] Administration Metoprolol Tartrate 25 mg 02/22/22 10:00 02/24/22 21:44 Metoprolol Tartrate 25 Mg Tab PO Not Given BID YANA Nitrofurantoin Macrocrystals 100 mg 02/24/22 13:00 02/25/22 09:04 Nitrofurantoin Monohyd/M-Cryst 100 Mg Cap PO 03/01/22 12:59 100 mg Q12HR YANA Administration Nitroglycerin 0.4 mg 02/22/22 09:30 Nitroglycerin 0.4 Mg Tab Subl SL Q5M PRN Chest Pain Pantoprazole Sodium 40 mg 02/22/22 11:00 02/25/22 09:04 Pantoprazole 40 Mg Tab PO 40 mg DAILY YANA Administration Potassium Chloride 10 meq 02/22/22 11:30 02/25/22 09:05 Potassium Chloride Er 10 Meq Tab PO 10 meq BID YANA Administration Quetiapine Fumarate 100 mg 02/22/22 10:00 02/25/22 09:04 Quetiapine 100 Mg Tab PO 100 mg BID YANA Administration Sertraline HCl 50 mg 02/22/22 10:00 02/25/22 09:05 Sertraline 50 Mg Tab PO 50 mg QDAY YANA Administration Nutrition/Malnutrition Assess - Dietary Evaluation Nutrition/Malnutrition Findings: Nutrition Notes Start: 02/22/22 15:25 Freq: Status: Active Protocol: Document 02/22/22 15:25 ANGELA (Rec: 02/22/22 15:34 ANGELA [id number]) Nutrition Notes Need for Assessment generated from: Low BMI Initial or Follow up Assessment Other Pertinent Diagnosis Major Depressive Disorder, Suicidal Ideation. Current Diet Cardiac/Consistent Carbohydrates Diet (since B ). 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 Weight Status Appropriate Subjective/Other Information RD consult for Low BMI assessment. Anthropometric data has been corrected on the chart and Pt is no longer Low BMI. No reports on Pt's PO intake of meals at the time. Pt is on Room Air, O2 saturation @ 94%, according to Vital Signs notes. Percent of energy/protein needs met: Prescribed Cardiac/Consistent Carbohydrates Diet provides for energy/protein needs (1, 977 Kcal/86 g) during LOS. Nutrition Intervention Revisit per MD consult or patient Sign Off request: Additional Comments Continue monitoring food tolerance, %PO intake of meals , and BM. <ROSA MCED - Last Filed: 03/01/22 07:17> Assessment and Plan Assessment and plan: I saw and evaluated the patient. I agree with the findings and the plan of care as documented in the Nurse Practitioner's~note, with the following corrections and additions. Hospitalist Physical - Constitutional Vitals: Temp Pulse Resp BP Pulse Ox 98.2 F 60 20 110/60 100 02/28/22 21:10 02/28/22 21:10 02/28/22 21:10 02/28/22 22:09 02/28/22 21:10 Results - Labs CBC & Chem 7: 02/24/22 10:27 02/24/22 10:27 Labs: Laboratory Last Values WBC 5.6 K/mm3 (4.5-11.0) 02/24/22 10:27 RBC 3.36 M/mm3 (3.65-5.03) L 02/24/22 10:27 Hgb 9.8 gm/dl (10.1-14.3) L 02/24/22 10:27 Hct 29.7 % (30.3-42.9) L 02/24/22 10:27 MCV 89 fl (79-97) 02/24/22 10:27 MCH 29 pg (28-32) 02/24/22 10:27 MCHC 33 % (30-34) 02/24/22 10:27 RDW 16.2 % (13.2-15.2) H 02/24/22 10:27 Plt Count 252 K/mm3 (140-440) 02/24/22 10:27 Lymph % (Auto) 13.9 % (13.4-35.0) 02/24/22 10:27 [place] % (Auto) 8.1 % (0.0-7.3) H 02/24/22 10:27 Eos % (Auto) 6.2 % (0.0-4.3) H 02/24/22 10:27 Baso % (Auto) 1.0 % (0.0-1.8) 02/24/22 10:27 Lymph # (Auto) 0.8 K/mm3 (1.2-5.4) L 02/24/22 10:27 [place] # (Auto) 0.5 K/mm3 (0.0-0.8) 02/24/22 10:27 Eos # (Auto) 0.3 K/mm3 (0.0-0.4) 02/24/22 10:27 Baso # (Auto) 0.1 K/mm3 (0.0-0.1) 02/24/22 10:27 Seg Neutrophils % 70.8 % (40.0-70.0) H 02/24/22 10:27 Seg Neutrophils # 3.9 K/mm3 (1.8-7.7) 02/24/22 10:27 Sodium 138 mmol/L (137-145) 02/24/22 10:27 Potassium 4.0 mmol/L (3.6-5.0) 02/24/22 10:27 Chloride 101.7 mmol/L (98-107) 02/24/22 10:27 Carbon Dioxide 26 mmol/L (22-30) 02/24/22 10:27 Anion Gap 14 mmol/L 02/24/22 10:27 BUN 12 mg/dL (7-17) 02/24/22 10:27 Creatinine 0.6 mg/dL (0.6-1.2) 02/24/22 10:27 Estimated GFR > 60 ml/min 02/24/22 10:27 BUN/Creatinine Ratio 20 % 02/24/22 10:27 Glucose 202 mg/dL (65-100) H 02/24/22 10:27 POC Glucose 101 mg/dL (70-105) 02/28/22 19:53 Hemoglobin A1c 7.2 % (4-6) H 02/23/22 04:58 Calcium 8.6 mg/dL (8.4-10.2) 02/24/22 10:27 Total Bilirubin 0.20 mg/dL (0.1-1.2) 02/23/22 04:58 AST 12 units/L (5-40) 02/23/22 04:58 ALT 13 units/L (7-56) 02/23/22 04:58 Alkaline Phosphatase 112 units/L (35-129) 02/23/22 04:58 Total Protein 5.8 g/dL (6.3-8.2) L 02/23/22 04:58 Albumin 2.9 g/dL (3.9-5) L 02/23/22 04:58 Albumin/Globulin Ratio 1.0 % 02/23/22 04:58 Triglycerides 52 mg/dL (2-149) 02/23/22 04:58 Cholesterol 129 mg/dL (50-199) 02/23/22 04:58 LDL Cholesterol Direct 60 mg/dL (50-130) 02/23/22 04:58 HDL Cholesterol 65 mg/dL (40-59) H 02/23/22 04:58 Cholesterol/HDL Ratio 1.98 % 02/23/22 04:58 TSH 0.975 mlU/mL (0.270-4.200) 02/23/22 04:58 Urine Color Yellow (Yellow) 02/22/22 00:52 Urine Turbidity Clear (Clear) 02/22/22 00:52 Urine pH 5.0 (5.0-7.0) 02/22/22 00:52 Ur Specific [place] 1.017 (1.003-1.030) 02/22/22 00:52 Urine Protein <15 mg/dl mg/dL (Negative) 02/22/22 00:52 Urine Glucose (UA) Neg mg/dL (Negative) 02/22/22 00:52 Urine Ketones Neg mg/dL (Negative) 02/22/22 00:52 Urine Blood Neg (Negative) 02/22/22 00:52 Urine Nitrite Neg (Negative) 02/22/22 00:52 Urine Bilirubin Neg (Negative) 02/22/22 00:52 Urine Urobilinogen 2.0 mg/dL (<2.0) 02/22/22 00:52 Ur Leukocyte Esterase Sm (Negative) 02/22/22 00:52 Urine WBC (Auto) 17.0 /HPF (0.0-6.0) H 02/22/22 00:52 Urine RBC (Auto) 2.0 /HPF (0.0-6.0) 02/22/22 00:52 U Epithel Cells (Auto) 1.0 /HPF (0-13.0) 02/22/22 00:52 Urine Mucus Few /HPF 02/22/22 00:52 Microbiology: Microbiology 02/23/22 05:06 Peripheral/Venous Blood Culture - Final NO GROWTH AFTER 5 DAYS 02/23/22 04:58 Peripheral/Venous Blood Culture - Final NO GROWTH AFTER 5 DAYS [place]/IV: Voiding Method Toilet Active Medications - Current Medications Current Medications: Generic Name Dose Route Start Last Admin Trade Name Freq PRN Reason Stop Dose Admin Albuterol 2.5 mg 02/22/22 12:00 02/22/22 18:30 Albuterol 2.5 Mg/3 Ml Nebu IH 2.5 mg Q4HRT PRN Administration Shortness Of Breath Amiodarone HCl 200 mg 02/22/22 10:00 02/28/22 10:08 Amiodarone 200 Mg Tab PO 200 mg DAILY YANA Administration Apixaban 5 mg 02/22/22 11:00 02/28/22 22:08 Apixaban 5 Mg Tab PO 5 mg Q12HR YANA Administration Protocol Arformoterol Tartrate 15 mcg 02/22/22 12:00 02/28/22 20:03 Arformoterol 15 Mcg/2 Ml Nebu IH 15 mcg Q12HRT YANA Administration Ascorbic Acid 500 mg 02/22/22 10:00 02/28/22 10:04 Ascorbic Acid 500 Mg Tab PO 500 mg QDAY YANA Administration Budesonide 1 mg 02/22/22 12:00 02/28/22 20:03 Budesonide 0.5 Mg/2 Ml Nebu IH 0.5 mg Q12HRT YANA Administration Clonazepam 0.5 mg 02/23/22 10:48 02/28/22 14:38 Clonazepam 0.5 Mg Tab PO 0.5 mg BID PRN Administration Anxiety Furosemide 20 mg 02/22/22 10:00 03/01/22 06:43 Furosemide 20 Mg Tab PO 20 mg 0600,1800 YANA Administration Hydrochlorothiazide 25 mg 02/22/22 10:00 02/28/22 11:06 Hydrochlorothiazide 25 Mg Tab PO Not Given QDAY [facility] Insulin Glargine 5 units 02/24/22 13:00 02/28/22 11:06 Insulin Glargine 100 Units/Ml SUB-Q Not Given QAMDIAB [facility] Insulin Human Lispro 0 unit 02/22/22 11:30 02/28/22 22:17 Insulin Lispro 100 Unit/Ml SUB-Q Not Given ACHS [facility] Protocol Levothyroxine Sodium 100 mcg 02/22/22 10:00 03/01/22 06:43 Levothyroxine 100 Mcg Tab PO 100 mcg DAILY@0600 YANA Administration Lisinopril 10 mg 02/22/22 11:00 02/28/22 11:07 Lisinopril 10 Mg Tab PO Not Given QDAY YANA Melatonin 5 mg 02/22/22 01:00 02/28/22 22:08 Melatonin 5 Mg Tab PO 5 mg QHS YANA Administration Metoprolol Tartrate 25 mg 02/22/22 10:00 02/28/22 22:09 Metoprolol Tartrate 25 Mg Tab PO Not Given BID YANA Nitrofurantoin Macrocrystals 100 mg 02/24/22 13:00 02/28/22 22:07 Nitrofurantoin Monohyd/M-Cryst 100 Mg Cap PO 03/01/22 12:59 100 mg Q12HR YANA Administration Nitroglycerin 0.4 mg 02/22/22 09:30 Nitroglycerin 0.4 Mg Tab Subl SL Q5M PRN Chest Pain Pantoprazole Sodium 40 mg 02/22/22 11:00 02/28/22 10:04 Pantoprazole 40 Mg Tab PO 40 mg DAILY YANA Administration Potassium Chloride 10 meq 02/22/22 11:30 02/28/22 22:08 Potassium Chloride Er 10 Meq Tab PO 10 meq BID YANA Administration Quetiapine Fumarate 100 mg 02/22/22 10:00 02/28/22 22:08 Quetiapine 100 Mg Tab PO 100 mg BID YANA Administration Sertraline HCl 50 mg 02/22/22 10:00 02/28/22 10:04 Sertraline 50 Mg Tab PO 50 mg QDAY YANA Administration Nutrition/Malnutrition Assess - Dietary Evaluation Nutrition/Malnutrition Findings: Nutrition Notes Start: 02/22/22 15:25 Freq: Status: Active Protocol: Document 02/28/22 11:51 GENE (Rec: 02/28/22 11:54 TXLOREN [id number]) Nutrition Notes Need for Assessment generated from: LOS Initial or Follow up Brief Note Current Diet Cardiac/Consistent CHO Height 5 ft 4.57 in Weight 54.7 kg [place] Body Weight (kg) 55.84 BMI 20.3 Weight Status Underweight Subjective/Other Information Pt screened for LOS. She has consumed 80% of meals since admission. Percent of energy/protein needs met: 100% energy and pro Minimum of two criteria No Is patient on ventilator? No Is Patient Ambulatory and/or Out of Bed Yes REE-([place]-ambulatory/OOB) [ [id number]] Calculation Used for Recommendations Curt Gates Additional Notes Pro needs 1.2-1.5g/k-82g/ day Fluid needs 1ml/kcal Nutrition Intervention Revisit per MD consult or patient Sign Off request:
--- NOTE | 2022-02-25 10:38 | Progress Note ---
Subjective Date of service: 02/25/22 Principal diagnosis: Major Depressive Disorder, r/o Neurocognitive Disorder Subjective Comment: The patient says seen today. She says she's doing okay and ready to go home. She is confused and thinks she lives with her daughter. Reports state she's resides in a local [place]. The patient says her appetite is good. She denies SI/HI or hallucinations of any kind. 02/24: The patient was seen this morning. She is calm, cooperative and oriented to self. She continues to present with some confusion, rates depression as 1/110. The patient denies any current suicidal/homicidal ideation and denies hallucinations. No changes made today. 02/23: The patient was seen this morning. She presents with restlessness and confusion. She continues to pace, requesting to be discharged. Start Klonopin 0.5mg po BID prn for anxiety REVIEW OF SYSTEMS Constitutional: Negative for weight loss ENT: Negative for stridor Respiratory: Negative for cough or hemoptysis All other systems reviewed and are negative MENTAL STATUS EXAMINATION General Appearance and Behavior: Age appropriate, wearing appropriate clothes, cooperative, polite with questioning, good eye contact Cooperation: cooperative Psychomotor Behavior: Psychomotor normal Mood: Okay Affect and affective range: congruent with stated mood Thought Process: circumstantial Thought Content: Reality oriented Speech: Normal volume, Regular rate and rhythm Suicidal Ideation: Denies Homicidal Ideation: Denies Hallucination: Sometimes Delusions: None elicited Impulse Control: Limited Insight and Judgment: Limited Memory: Intact Attention: attentive Orientation: Alert and oriented Diagnoses: Major depressive disorder R/O Cognitive Disorder Treatment Plan: Patient admitted for inpatient psychiatric evaluation, medication adjustment and close monitoring The patient's behavior, mood, sleep and appetite will be closely monitored. Patient enrolled in individual and group therapeutic sessions and encouraged to attend. Patient provided with a safe and structured environment. Patient's physical health needs will be addressed by the Hospitalist. Hospital ist Consulted Labs including CBC, CMP, Lipid profile and Hemoglobin A1C levels ordered for baseline reference Social Assessment will be completed and the Coffee Bar Attendant will work with patient and family to ensure a suitable and safe disposition Medication adjustment will be made as clinically indicated Continue home meds Usual Wellness Mandaeism/Preservation: - Start Trazodone 50 mg po QHS & 50 mg po QHS PRN between 10 PM & 2 AM for insomnia - Start Melatonin 5 mg po QHS to promote circadian rhythm The patient agreed on the treatment plan, understood the risk, benefit, alternative treatment, potential consequence of no treatment, and gave informed consent. Estimated days: [address] Goldman Medications and Allergies Allergies Allergy/AdvReac Type Severity Reaction Status Date / Time codeine Allergy Unknown Verified 02/21/22 22:24 Home Medications Medication Instructions Recorded Confirmed Last Taken Type Albuterol Sulfate [Proair 2 puff INHALATION UNK 02/22/22 02/22/22 Unknown History Respiclick] Amiodarone [Cordarone 200 MG TAB] 200 mg PO DAILY 02/22/22 02/22/22 Unknown History Apixaban [Eliquis] 5 mg PO BID 02/22/22 02/22/22 Unknown History Ascorbic Acid [Vitamin C] 500 mg PO QDAY 02/22/22 02/22/22 Unknown History Budesonide/Formoterol Fumarate 10.2 gm IH BID 02/22/22 02/22/22 Unknown History [Symbicort 160-4.5 Mcg Inhaler] Furosemide [Lasix] 20 mg PO BID 02/22/22 02/22/22 Unknown History Levothyroxine [Synthroid] 100 mcg PO QAM 02/22/22 02/22/22 Unknown History Melatonin [Melatonin 3MG TAB] 3 mg PO HS 02/22/22 02/22/22 Unknown History Metoprolol [Lopressor] 25 mg PO BID 02/22/22 02/22/22 Unknown History Nitroglycerin [Nitrostat] 0.4 mg SL Q5M PRN 02/22/22 02/22/22 Unknown History Omeprazole 40 mg PO DAILY 02/22/22 02/22/22 Unknown History Potassium Chloride [K-Dur] 10 meq PO BID 02/22/22 02/22/22 Unknown History QUEtiapine [SEROquel] 100 mg PO BID 02/22/22 02/22/22 Unknown History Quinapril HCl [Accupril] 20 mg PO DAILY 02/22/22 02/22/22 Unknown History Sertraline [Zoloft] 50 mg PO QDAY 02/22/22 02/22/22 Unknown History hydroCHLOROthiazide [HCTZ] 25 mg PO QDAY 02/22/22 02/22/22 Unknown History Active Meds: Active Medications Albuterol (Albuterol 2.5 Mg/3 Ml Nebu) 2.5 mg IH Q4HRT PRN PRN Reason: Shortness Of Breath Last Admin: 02/22/22 18:30 Dose: 2.5 mg Amiodarone HCl (Amiodarone 200 Mg Tab) 200 mg PO DAILY [facility] Last Admin: 02/25/22 09:05 Dose: 200 mg Apixaban (Apixaban 5 Mg Tab) 5 mg PO Q12HR [facility]; Protocol Last Admin: 02/25/22 09:05 Dose: 5 mg Arformoterol Tartrate (Arformoterol 15 Mcg/2 Ml Nebu) 15 mcg IH Q12HRT [facility] Last Admin: 02/25/22 05:46 Dose: Not Given Ascorbic Acid (Ascorbic Acid 500 Mg Tab) 500 mg PO QDAY [facility] Last Admin: 02/25/22 09:05 Dose: 500 mg Budesonide (Budesonide 0.5 Mg/2 Ml Nebu) 1 mg IH Q12HRT [facility] Last Admin: 02/25/22 05:46 Dose: Not Given Clonazepam (Clonazepam 0.5 Mg Tab) 0.5 mg PO BID PRN PRN Reason: Anxiety Last Admin: 02/25/22 09:05 Dose: 0.5 mg Furosemide (Furosemide 20 Mg Tab) 20 mg PO 0600,1800 [facility] Last Admin: 02/25/22 07:23 Dose: 20 mg Hydrochlorothiazide (Hydrochlorothiazide 25 Mg Tab) 25 mg PO QDAY [facility] Last Admin: 02/25/22 09:04 Dose: 25 mg Insulin Glargine (Insulin Glargine 100 Units/Ml) 5 units SUB-Q QAMDIAB [facility] Last Admin: 02/25/22 07:44 Dose: 5 units Insulin Human Lispro (Insulin Lispro 100 Unit/Ml) 0 unit SUB-Q ACHS [facility]; Protocol Last Admin: 02/25/22 07:45 Dose: Not Given Levothyroxine Sodium (Levothyroxine 100 Mcg Tab) 100 mcg PO DAILY@0600 [facility] Last Admin: 02/25/22 07:23 Dose: 100 mcg Lisinopril (Lisinopril 10 Mg Tab) 10 mg PO QDAY [facility] Last Admin: 02/24/22 09:39 Dose: Not Given Melatonin (Melatonin 5 Mg Tab) 5 mg PO QHS [facility] Last Admin: 02/24/22 21:44 Dose: 5 mg Metoprolol Tartrate (Metoprolol Tartrate 25 Mg Tab) 25 mg PO BID [facility] Last Admin: 02/24/22 21:44 Dose: Not Given Nitrofurantoin Macrocrystals (Nitrofurantoin Monohyd/M-Cryst 100 Mg Cap) 100 mg PO Q12HR [facility] Stop: 03/01/22 12:59 Last Admin: 02/25/22 09:04 Dose: 100 mg Nitroglycerin (Nitroglycerin 0.4 Mg Tab Subl) 0.4 mg SL Q5M PRN PRN Reason: Chest Pain Pantoprazole Sodium (Pantoprazole 40 Mg Tab) 40 mg PO DAILY [facility] Last Admin: 02/25/22 09:04 Dose: 40 mg Potassium Chloride (Potassium Chloride Er 10 Meq Tab) 10 meq PO BID [facility] Last Admin: 02/25/22 09:05 Dose: 10 meq Quetiapine Fumarate (Quetiapine 100 Mg Tab) 100 mg PO BID [facility] Last Admin: 02/25/22 09:04 Dose: 100 mg Sertraline HCl (Sertraline 50 Mg Tab) 50 mg PO QDAY [facility] Last Admin: 02/25/22 09:05 Dose: 50 mg Results - Results Labs/Vitals: Laboratory Last Values WBC 5.6 K/mm3 (4.5-11.0) 02/24/22 10:27 RBC 3.36 M/mm3 (3.65-5.03) L 02/24/22 10:27 Hgb 9.8 gm/dl (10.1-14.3) L 02/24/22 10:27 Hct 29.7 % (30.3-42.9) L 02/24/22 10:27 MCV 89 fl (79-97) 02/24/22 10:27 MCH 29 pg (28-32) 02/24/22 10:27 MCHC 33 % (30-34) 02/24/22 10:27 RDW 16.2 % (13.2-15.2) H 02/24/22 10:27 Plt Count 252 K/mm3 (140-440) 02/24/22 10:27 Lymph % (Auto) 13.9 % (13.4-35.0) 02/24/22 10:27 [place] % (Auto) 8.1 % (0.0-7.3) H 02/24/22 10:27 Eos % (Auto) 6.2 % (0.0-4.3) H 02/24/22 10:27 Baso % (Auto) 1.0 % (0.0-1.8) 02/24/22 10:27 Lymph # (Auto) 0.8 K/mm3 (1.2-5.4) L 02/24/22 10:27 [place] # (Auto) 0.5 K/mm3 (0.0-0.8) 02/24/22 10:27 Eos # (Auto) 0.3 K/mm3 (0.0-0.4) 02/24/22 10:27 Baso # (Auto) 0.1 K/mm3 (0.0-0.1) 02/24/22 10:27 Seg Neutrophils % 70.8 % (40.0-70.0) H 02/24/22 10:27 Seg Neutrophils # 3.9 K/mm3 (1.8-7.7) 02/24/22 10:27 Sodium 138 mmol/L (137-145) 02/24/22 10:27 Potassium 4.0 mmol/L (3.6-5.0) 02/24/22 10:27 Chloride 101.7 mmol/L (98-107) 02/24/22 10:27 Carbon Dioxide 26 mmol/L (22-30) 02/24/22 10:27 Anion Gap 14 mmol/L 02/24/22 10:27 BUN 12 mg/dL (7-17) 02/24/22 10:27 Creatinine 0.6 mg/dL (0.6-1.2) 02/24/22 10:27 Estimated GFR > 60 ml/min 02/24/22 10:27 BUN/Creatinine Ratio 20 % 02/24/22 10:27 Glucose 202 mg/dL (65-100) H 02/24/22 10:27 POC Glucose 105 mg/dL (70-105) 02/25/22 06:49 Hemoglobin A1c 7.2 % (4-6) H 02/23/22 04:58 Calcium 8.6 mg/dL (8.4-10.2) 02/24/22 10:27 Total Bilirubin 0.20 mg/dL (0.1-1.2) 02/23/22 04:58 AST 12 units/L (5-40) 02/23/22 04:58 ALT 13 units/L (7-56) 02/23/22 04:58 Alkaline Phosphatase 112 units/L (35-129) 02/23/22 04:58 Total Protein 5.8 g/dL (6.3-8.2) L 02/23/22 04:58 Albumin 2.9 g/dL (3.9-5) L 02/23/22 04:58 Albumin/Globulin Ratio 1.0 % 02/23/22 04:58 Triglycerides 52 mg/dL (2-149) 02/23/22 04:58 Cholesterol 129 mg/dL (50-199) 02/23/22 04:58 LDL Cholesterol Direct 60 mg/dL (50-130) 02/23/22 04:58 HDL Cholesterol 65 mg/dL (40-59) H 02/23/22 04:58 Cholesterol/HDL Ratio 1.98 % 02/23/22 04:58 TSH 0.975 mlU/mL (0.270-4.200) 02/23/22 04:58 Urine Color Yellow (Yellow) 02/22/22 00:52 Urine Turbidity Clear (Clear) 02/22/22 00:52 Urine pH 5.0 (5.0-7.0) 02/22/22 00:52 Ur Specific [place] 1.017 (1.003-1.030) 02/22/22 00:52 Urine Protein <15 mg/dl mg/dL (Negative) 02/22/22 00:52 Urine Glucose (UA) Neg mg/dL (Negative) 02/22/22 00:52 Urine Ketones Neg mg/dL (Negative) 02/22/22 00:52 Urine Blood Neg (Negative) 02/22/22 00:52 Urine Nitrite Neg (Negative) 02/22/22 00:52 Urine Bilirubin Neg (Negative) 02/22/22 00:52 Urine Urobilinogen 2.0 mg/dL (<2.0) 02/22/22 00:52 Ur Leukocyte Esterase Sm (Negative) 02/22/22 00:52 Urine WBC (Auto) 17.0 /HPF (0.0-6.0) H 02/22/22 00:52 Urine RBC (Auto) 2.0 /HPF (0.0-6.0) 02/22/22 00:52 U Epithel Cells (Auto) 1.0 /HPF (0-13.0) 02/22/22 00:52 Urine Mucus Few /HPF 02/22/22 00:52 Last Vital Signs Temp 98.1 F 02/25/22 08:59 Pulse 65 02/25/22 08:59 Resp 16 02/25/22 08:59 BP 122/53 02/25/22 08:59 Pulse Ox 99 02/25/22 08:59
--- NOTE | 2022-02-25 17:25 | XRay Report ---
CHEST 1 VIEW 02/25/2022 3:42 PM INDICATION / CLINICAL INFORMATION: TB check for group placement. COMPARISON: None available. FINDINGS: SUPPORT DEVICES: None. HEART / MEDIASTINUM: No significant abnormality. LUNGS / PLEURA: Mild increased interstitial process in density left mid and left lower lung with blun ting the left costophrenic angle and small left effusion No pneumothorax. Signer Name: Forrest Santos MD Signed: 02/25/2022 5:20 PM Workstation Name: [id number]
[2022-02-25] MEDS: MELATONIN 5 MG TAB PO SCH (21:04)
[2022-02-26] MEDS: ARFORMOTEROL 15 MCG/2 ML NEBU IH SCH ×3 (04:08→21:14)
[2022-02-26] MEDS: BUDESONIDE 0.5 MG/2 ML NEBU IH SCH ×3 (04:09→21:14)
[2022-02-26] MEDS: FUROSEMIDE 20 MG TAB PO SCH ×2 (06:13→17:12)
[2022-02-26] MEDS: LEVOTHYROXINE 100 MCG TAB PO SCH (06:13)
[2022-02-26] MEDS: INSULIN LISPRO 100 UNIT/ML SUB-Q SCH ×4 (07:30→21:43)
--- NOTE | 2022-02-26 08:34 | Progress Note ---
Subjective Date of service: 02/26/22 Principal diagnosis: Major Depressive Disorder, r/o Neurocognitive Disorder Subjective Comment: The patient was seen today. She says she's doing well. She denies SI/HI or hallucinations of any kind. 02/25 The patient says seen today. She says she's doing okay and ready to go home. She is confused and thinks she lives with her daughter. Reports state she's resides in a local [place]. The patient says her appetite is good. She denies S I/HI or hallucinations of any kind. 02/24: The patient was seen this morning. She is calm, cooperative and oriented to self. She continues to present with some confusion, rates depression as 1/110. The patient denies any current suicidal/homicidal ideation and denies hallucinations. No changes made today. 02/23: The patient was seen this morning. She presents with restlessness and confusion. She continues to pace, requesting to be discharged. Start Klonopin 0.5mg po BID prn for anxiety REVIEW OF SYSTEMS Constitutional: Negative for weight loss ENT: Negative for stridor Respiratory: Negative for cough or hemoptysis All other systems reviewed and are negative MENTAL STATUS EXAMINATION General Appearance and Behavior: Age appropriate, wearing appropriate clothes, cooperative, polite with questioning, good eye contact Cooperation: cooperative Psychomotor Behavior: Psychomotor normal Mood: Okay Affect and affective range: congruent with stated mood Thought Process: circumstantial Thought Content: Reality oriented Speech: Normal volume, Regular rate and rhythm Suicidal Ideation: Denies Homicidal Ideation: Denies Hallucination: Sometimes Delusions: None elicited Impulse Control: Limited Insight and Judgment: Limited Memory: Intact Attention: attentive Orientation: Alert and oriented Diagnoses: Major depressive disorder R/O Cognitive Disorder Treatment Plan: Patient admitted for inpatient psychiatric evaluation, medication adjustment and close monitoring The patient's behavior, mood, sleep and appetite will be closely monitored. Patient enrolled in individual and group therapeutic sessions and encouraged to attend. Patient provided with a safe and structured environment. Patient's physical health needs will be addressed by the Hospitalist. Hospitalist Consulted Labs including CBC, CMP, Lipid profile and Hemoglobin A1C levels ordered for baseline reference Social Assessment will be completed and the K[facility]man will work with patient and family to ensure a suitable and safe disposition Medication adjustment will be made as clinically indicated Continue home meds Usual Wellness Amish/Preservation: - Start Trazodone 50 mg po QHS & 50 mg po QHS PRN between 10 PM & 2 AM for insomnia - Start Melatonin 5 mg po QHS to promote circadian rhythm The patient agreed on the treatment plan, understood the risk, benefit, alternative treatment, potential consequence of no treatment, and gave informed consent. Estimated days: [address] Goldman Medications and Allergies Allergies Allergy/AdvReac Type Severity Reaction Status Date / Time codeine Allergy Unknown Verified 02/21/22 22:24 Home Medications Medication Instructions Recorded Confirmed Last Taken Type Albuterol Sulfate [Proair 2 puff INHALATION UNK 02/22/22 02/22/22 Unknown History Respiclick] Amiodarone [Cordarone 200 MG TAB] 200 mg PO DAILY 02/22/22 02/22/22 Unknown History Apixaban [Eliquis] 5 mg PO BID 02/22/22 02/22/22 Unknown History Ascorbic Acid [Vitamin C] 500 mg PO QDAY 02/22/22 02/22/22 Unknown History Budesonide/Formoterol Fumarate 10.2 gm IH BID 02/22/22 02/22/22 Unknown History [Symbicort 160-4.5 Mcg Inhaler] Furosemide [Lasix] 20 mg PO BID 02/22/22 02/22/22 Unknown History Levothyroxine [Synthroid] 100 mcg PO QAM 02/22/22 02/22/22 Unknown History Melatonin [Melatonin 3MG TAB] 3 mg PO HS 02/22/22 02/22/22 Unknown History Metoprolol [Lopressor] 25 mg PO BID 02/22/22 02/22/22 Unknown History Nitroglycerin [Nitrostat] 0.4 mg SL Q5M PRN 02/22/22 02/22/22 Unknown History Omeprazole 40 mg PO DAILY 02/22/22 02/22/22 Unknown History Potassium Chloride [K-Dur] 10 meq PO BID 02/22/22 02/22/22 Unknown History QUEtiapine [SEROquel] 100 mg PO BID 02/22/22 02/22/22 Unknown History Quinapril HCl [Accupril] 20 mg PO DAILY 02/22/22 02/22/22 Unknown History Sertraline [Zoloft] 50 mg PO QDAY 02/22/22 02/22/22 Unknown History hydroCHLOROthiazide [HCTZ] 25 mg PO QDAY 02/22/22 02/22/22 Unknown History Active Meds: Active Medications Albuterol (Albuterol 2.5 Mg/3 Ml Nebu) 2.5 mg IH Q4HRT PRN PRN Reason: Shortness Of Breath Last Admin: 02/22/22 18:30 Dose: 2.5 mg Amiodarone HCl (Amiodarone 200 Mg Tab) 200 mg PO DAILY [facility] Last Admin: 02/25/22 09:05 Dose: 200 mg Apixaban (Apixaban 5 Mg Tab) 5 mg PO Q12HR [facility]; Protocol Last Admin: 02/25/22 21:04 Dose: 5 mg Arformoterol Tartrate (Arformoterol 15 Mcg/2 Ml Nebu) 15 mcg IH Q12HRT [facility] Last Admin: 02/26/22 04:08 Dose: Not Given Ascorbic Acid (Ascorbic Acid 500 Mg Tab) 500 mg PO QDAY [facility] Last Admin: 02/25/22 09:05 Dose: 500 mg Budesonide (Budesonide 0.5 Mg/2 Ml Nebu) 1 mg IH Q12HRT [facility] Last Admin: 02/26/22 04:09 Dose: Not Given Clonazepam (Clonazepam 0.5 Mg Tab) 0.5 mg PO BID PRN PRN Reason: Anxiety Last Admin: 02/25/22 21:06 Dose: 0.5 mg Furosemide (Furosemide 20 Mg Tab) 20 mg PO 0600,1800 [facility] Last Admin: 02/26/22 06:13 Dose: 20 mg Hydrochlorothiazide (Hydrochlorothiazide 25 Mg Tab) 25 mg PO QDAY [facility] Last Admin: 02/25/22 09:04 Dose: 25 mg Insulin Glargine (Insulin Glargine 100 Units/Ml) 5 units SUB-Q QAMDIAB [facility] Last Admin: 02/25/22 07:44 Dose: 5 units Insulin Human Lispro (Insulin Lispro 100 Unit/Ml) 0 unit SUB-Q [facility]; Protocol Last Admin: 02/25/22 21:22 Dose: 1 unit Levothyroxine Sodium (Levothyroxine 100 Mcg Tab) 100 mcg PO DAILY@0600 [facility] Last Admin: 02/26/22 06:13 Dose: 100 mcg Lisinopril (Lisinopril 10 Mg Tab) 10 mg PO QDAY [facility] Last Admin: 02/25/22 09:05 Dose: Not Given Melatonin (Melatonin 5 Mg Tab) 5 mg PO QHS [facility] Last Admin: 02/25/22 21:04 Dose: 5 mg Metoprolol Tartrate (Metoprolol Tartrate 25 Mg Tab) 25 mg PO BID [facility] Last Admin: 02/25/22 21:05 Dose: 25 mg Nitrofurantoin Macrocrystals (Nitrofurantoin Monohyd/M-Cryst 100 Mg Cap) 100 mg PO Q12HR [facility] Stop: 03/01/22 12:59 Last Admin: 02/25/22 21:04 Dose: 100 mg Nitroglycerin (Nitroglycerin 0.4 Mg Tab Subl) 0.4 mg SL Q5M PRN PRN Reason: Chest Pain Pantoprazole Sodium (Pantoprazole 40 Mg Tab) 40 mg PO DAILY [facility] Last Admin: 02/25/22 09:04 Dose: 40 mg Potassium Chloride (Potassium Chloride Er 10 Meq Tab) 10 meq PO BID [facility] Last Admin: 02/25/22 21:04 Dose: 10 meq Quetiapine Fumarate (Quetiapine 100 Mg Tab) 100 mg PO BID [facility] Last Admin: 02/25/22 21:05 Dose: 100 mg Sertraline HCl (Sertraline 50 Mg Tab) 50 mg PO QDAY [facility] Last Admin: 02/25/22 09:05 Dose: 50 mg Results - Results Labs/Vitals: Laboratory Last Values WBC 5.6 K/mm3 (4.5-11.0) 02/24/22 10:27 RBC 3.36 M/mm3 (3.65-5.03) L 02/24/22 10:27 Hgb 9.8 gm/dl (10.1-14.3) L 02/24/22 10:27 Hct 29.7 % (30.3-42.9) L 02/24/22 10:27 MCV 89 fl (79-97) 02/24/22 10:27 MCH 29 pg (28-32) 02/24/22 10:27 MCHC 33 % (30-34) 02/24/22 10:27 RDW 16.2 % (13.2-15.2) H 02/24/22 10:27 Plt Count 252 K/mm3 (140-440) 02/24/22 10:27 Lymph % (Auto) 13.9 % (13.4-35.0) 02/24/22 10:27 [place] % (Auto) 8.1 % (0.0-7.3) H 02/24/22 10:27 Eos % (Auto) 6.2 % (0.0-4.3) H 02/24/22 10:27 Baso % (Auto) 1.0 % (0.0-1.8) 02/24/22 10:27 Lymph # (Auto) 0.8 K/mm3 (1.2-5.4) L 02/24/22 10:27 [place] # (Auto) 0.5 K/mm3 (0.0-0.8) 02/24/22 10:27 Eos # (Auto) 0.3 K/mm3 (0.0-0.4) 02/24/22 10:27 Baso # (Auto) 0.1 K/mm3 (0.0-0.1) 02/24/22 10:27 Seg Neutrophils % 70.8 % (40.0-70.0) H 02/24/22 10:27 Seg Neutrophils # 3.9 K/mm3 (1.8-7.7) 02/24/22 10:27 Sodium 138 mmol/L (137-145) 02/24/22 10:27 Potassium 4.0 mmol/L (3.6-5.0) 02/24/22 10:27 Chloride 101.7 mmol/L (98-107) 02/24/22 10:27 Carbon Dioxide 26 mmol/L (22-30) 02/24/22 10:27 Anion Gap 14 mmol/L 02/24/22 10:27 BUN 12 mg/dL (7-17) 02/24/22 10:27 Creatinine 0.6 mg/dL (0.6-1.2) 02/24/22 10:27 Estimated GFR > 60 ml/min 02/24/22 10:27 BUN/Creatinine Ratio 20 % 02/24/22 10:27 Glucose 202 mg/dL (65-100) H 02/24/22 10:27 POC Glucose 98 mg/dL (70-105) 02/26/22 07:55 Hemoglobin A1c 7.2 % (4-6) H 02/23/22 04:58 Calcium 8.6 mg/dL (8.4-10.2) 02/24/22 10:27 Total Bilirubin 0.20 mg/dL (0.1-1.2) 02/23/22 04:58 AST 12 units/L (5-40) 02/23/22 04:58 ALT 13 units/L (7-56) 02/23/22 04:58 Alkaline Phosphatase 112 units/L (35-129) 02/23/22 04:58 Total Protein 5.8 g/dL (6.3-8.2) L 02/23/22 04:58 Albumin 2.9 g/dL (3.9-5) L 02/23/22 04:58 Albumin/Globulin Ratio 1.0 % 02/23/22 04:58 Triglycerides 52 mg/dL (2-149) 02/23/22 04:58 Cholesterol 129 mg/dL (50-199) 02/23/22 04:58 LDL Cholesterol Direct 60 mg/dL (50-130) 02/23/22 04:58 HDL Cholesterol 65 mg/dL (40-59) H 02/23/22 04:58 Cholesterol/HDL Ratio 1.98 % 02/23/22 04:58 TSH 0.975 mlU/mL (0.270-4.200) 02/23/22 04:58 Urine Color Yellow (Yellow) 02/22/22 00:52 Urine Turbidity Clear (Clear) 02/22/22 00:52 Urine pH 5.0 (5.0-7.0) 02/22/22 00:52 Ur Specific [place] 1.017 (1.003-1.030) 02/22/22 00:52 Urine Protein <15 mg/dl mg/dL (Negative) 02/22/22 00:52 Urine Glucose (UA) Neg mg/dL (Negative) 02/22/22 00:52 Urine Ketones Neg mg/dL (Negative) 02/22/22 00:52 Urine Blood Neg (Negative) 02/22/22 00:52 Urine Nitrite Neg (Negative) 02/22/22 00:52 Urine Bilirubin Neg (Negative) 02/22/22 00:52 Urine Urobilinogen 2.0 mg/dL (<2.0) 02/22/22 00:52 Ur Leukocyte Esterase Sm (Negative) 02/22/22 00:52 Urine WBC (Auto) 17.0 /HPF (0.0-6.0) H 02/22/22 00:52 Urine RBC (Auto) 2.0 /HPF (0.0-6.0) 02/22/22 00:52 U Epithel Cells (Auto) 1.0 /HPF (0-13.0) 02/22/22 00:52 Urine Mucus Few /HPF 02/22/22 00:52 Last Vital Signs Temp 98.4 F 02/25/22 18:56 Pulse 71 02/25/22 21:05 Resp 16 02/25/22 18:56 BP 115/55 02/25/22 21:05 Pulse Ox 98 02/25/22 18:56
[2022-02-26] MEDS: NITROFURANTOIN MONOHYD/M-CRYST 100 MG CAP PO SCH ×2 (09:21→21:43)
[2022-02-26] MEDS: QUEtiapine 100 MG TAB PO SCH ×2 (09:21→21:43)
[2022-02-26] MEDS: hydroCHLOROthiazide 25 MG TAB PO SCH (09:21)
[2022-02-26] MEDS: PANTOPRAZOLE 40 MG TAB PO SCH (09:21)
[2022-02-26] MEDS: AMIODARONE 200 MG TAB PO SCH (09:23)
[2022-02-26] MEDS: METOPROLOL TARTRATE 25 MG TAB PO SCH ×2 (09:24→21:43)
[2022-02-26] MEDS: APIXABAN 5 MG TAB PO SCH ×2 (09:24→21:43)
[2022-02-26] MEDS: POTASSIUM CHLORIDE ER 10 MEQ TAB PO SCH ×2 (09:24→21:42)
[2022-02-26] MEDS: LISINOPRIL 10 MG TAB PO SCH (09:25)
[2022-02-26] MEDS: ASCORBIC ACID 500 MG TAB PO SCH (09:25)
[2022-02-26] MEDS: SERTRALINE 50 MG TAB PO SCH (09:27)
[2022-02-26] MEDS: INSULIN GLARGINE 100 UNITS/ML SUB-Q SCH (10:16)
--- NOTE | 2022-02-26 10:18 | Progress Note ---
Assessment and Plan Assessment and plan: UTI (urinary tract infection) -On Nitrofurantonin x5 days to end on 03/01, deescalate as appropriate A-fib -On BB, amiodarone and Eliquis -EKG as needed for complaints of palpitations and rapid heart rates DM2 (diabetes mellitus, type 2) -A1c 7.2 -POC BG monitoring -On scheduled Lantus 5U, and SSI coverage -On consistent carb diet Hypertension -Monitor BP per protocol -Continue antihypertensive meds Suicide attempt -Suicide precautions -Management per primary History Interval history: 87 year old female with history of A.fib (on Eliquis), DM2, hypothyroidism, HTN, major depression disorder and anxiety who was admitted for suicidal ideation. 02/26: Pt is seen in bed (room 513) this morning. Reports having breakfast and returned to bed, she felt tired, even though she reports sleeping well last night. She continues to inquire about d/c. States she misses her family and wants to go home. No overnight events reported. 02/25: Pt is seen in rec room this morning. Pt appears anxious and asked multiple times during assessment "can I go home today?". States that she lives with her daughter and misses her. No overnight events reported. Hospitalist Physical - Physical exam Narrative exam: General appearance: Present: no acute distress, oriented to self and place - EENT Eyes: Present: PERRL, EOM intact ENT: hearing intact, other (wears dentures and partial veneers) - Neck Neck: Present: supple, normal ROM - Respiratory Respiratory effort: normal Respiratory: bilateral: diminished (bases) - Cardiovascular Heart Sounds: Present: S1 & S2. Absent: systolic murmur, diastolic murmur - Extremities Extremities: pulses intact, No edema, normal temperature Peripheral Pulses: within normal limits - Abdominal General gastrointestinal: soft, non-tender, non-distended, normal bowel sounds - Integumentary Integumentary: Present: clear, warm, dry - Psychiatric Psychiatric: cooperative - Neurologic Neurologic: CNII-XII intact, other (amb with wheelchair at baseline ) - Constitutional Vitals: Temp Pulse Resp BP Pulse Ox 98.4 F 55 L 16 121/50 98 02/25/22 18:56 02/26/22 09:25 02/25/22 18:56 02/26/22 09:25 02/25/22 18:56 General appearance: Present: no acute distress Results - Labs CBC & Chem 7: 02/24/22 10:27 02/24/22 10:27 Labs: Laboratory Last Values WBC 5.6 K/mm3 (4.5-11.0) 02/24/22 10:27 RBC 3.36 M/mm3 (3.65-5.03) L 02/24/22 10:27 Hgb 9.8 gm/dl (10.1-14.3) L 02/24/22 10:27 Hct 29.7 % (30.3-42.9) L 02/24/22 10: MCV 89 fl (79-97) 02/24/22 10: MCH 29 pg (28-32) 02/24/22 10: MCHC 33 % (30-34) 02/24/22 10: RDW 16.2 % (13.2-15.2) H 02/24/22 10:27 Plt Count 252 K/mm3 (140-440) 02/24/22 10:27 Lymph % (Auto) 13.9 % (13.4-35.0) 02/24/22 10:27 [place] % (Auto) 8.1 % (0.0-7.3) H 02/24/22 10: Eos % (Auto) 6.2 % (0.0-4.3) H 02/24/22 10:27 Baso % (Auto) 1.0 % (0.0-1.8) 02/24/22 10:27 Lymph # (Auto) 0.8 K/mm3 (1.2-5.4) L 02/24/22 10:27 [place] # (Auto) 0.5 K/mm3 (0.0-0.8) 02/24/22 10: Eos # (Auto) 0.3 K/mm3 (0.0-0.4) 02/24/22 10: Baso # (Auto) 0.1 K/mm3 (0.0-0.1) 02/24/22 10:27 Seg Neutrophils % 70.8 % (40.0-70.0) H 02/24/22 10:27 Seg Neutrophils # 3.9 K/mm3 (1.8-7.7) 02/24/22 10:27 Sodium 138 mmol/L (137-145) 02/24/22 10:27 Potassium 4.0 mmol/L (3.6-5.0) 02/24/22 10:27 Chloride 101.7 mmol/L (98-107) 02/24/22 10:27 Carbon Dioxide 26 mmol/L (22-30) 02/24/22 10:27 Anion Gap 14 mmol/L 02/24/22 10:27 BUN 12 mg/dL (7-17) 02/24/22 10:27 Creatinine 0.6 mg/dL (0.6-1.2) 02/24/22 10:27 Estimated GFR > 60 ml/min 02/24/22 10:27 BUN/Creatinine Ratio 20 % 02/24/22 10:27 Glucose 202 mg/dL (65-100) H 02/24/22 10:27 POC Glucose 98 mg/dL (70-105) 02/26/22 07:55 Hemoglobin A1c 7.2 % (4-6) H 02/23/22 04:58 Calcium 8.6 mg/dL (8.4-10.2) 02/24/22 10:27 Total Bilirubin 0.20 mg/dL (0.1-1.2) 02/23/22 04:58 AST 12 units/L (5-40) 02/23/22 04:58 ALT 13 units/L (7-56) 02/23/22 04:58 Alkaline Phosphatase 112 units/L (35-129) 02/23/22 04:58 Total Protein 5.8 g/dL (6.3-8.2) L 02/23/22 04:58 Albumin 2.9 g/dL (3.9-5) L 02/23/22 04:58 Albumin/Globulin Ratio 1.0 % 02/23/22 04:58 Triglycerides 52 mg/dL (2-149) 02/23/22 04:58 Cholesterol 129 mg/dL (50-199) 02/23/22 04:58 LDL Cholesterol Direct 60 mg/dL (50-130) 02/23/22 04:58 HDL Cholesterol 65 mg/dL (40-59) H 02/23/22 04:58 Cholesterol/HDL Ratio 1.98 % 02/23/22 04:58 TSH 0.975 mlU/mL (0.270-4.200) 02/23/22 04:58 Urine Color Yellow (Yellow) 02/22/22 00:52 Urine Turbidity Clear (Clear) 02/22/22 00:52 Urine pH 5.0 (5.0-7.0) 02/22/22 00:52 Ur Specific [place] 1.017 (1.003-1.030) 02/22/22 00:52 Urine Protein <15 mg/dl mg/dL (Negative) 02/22/22 00:52 Urine Glucose (UA) Neg mg/dL (Negative) 02/22/22 00:52 Urine Ketones Neg mg/dL (Negative) 02/22/22 00:52 Urine Blood Neg (Negative) 02/22/22 00:52 Urine Nitrite Neg (Negative) 02/22/22 00:52 Urine Bilirubin Neg (Negative) 02/22/22 00:52 Urine Urobilinogen 2.0 mg/dL (<2.0) 02/22/22 00:52 Ur Leukocyte Esterase Sm (Negative) 02/22/22 00:52 Urine WBC (Auto) 17.0 /HPF (0.0-6.0) H 02/22/22 00:52 Urine RBC (Auto) 2.0 /HPF (0.0-6.0) 02/22/22 00:52 U Epithel Cells (Auto) 1.0 /HPF (0-13.0) 02/22/22 00:52 Urine Mucus Few /HPF 02/22/22 00:52 Microbiology: Microbiology 02/23/22 05:06 Peripheral/Venous Blood Culture - Preliminary NO GROWTH AFTER 72 HOURS 02/23/22 04:58 Peripheral/Venous Blood Culture - Preliminary NO GROWTH AFTER 72 HOURS [place]/IV: Voiding Method Toilet Active Medications - Current Medications Current Medications: Generic Name Dose Route Start Last Admin Trade Name Freq PRN Reason Stop Dose Admin Albuterol 2.5 mg 02/22/22 12:00 02/22/22 18:30 Albuterol 2.5 Mg/3 Ml Nebu IH 2.5 mg Q4HRT PRN Administration Shortness Of Breath Amiodarone HCl 200 mg 02/22/22 10:00 02/26/22 09:23 Amiodarone 200 Mg Tab PO 200 mg DAILY YANA Administration Apixaban 5 mg 02/22/22 11:00 02/26/22 09:24 Apixaban 5 Mg Tab PO 5 mg Q12HR YANA Administration Protocol Arformoterol Tartrate 15 mcg 02/22/22 12:00 02/26/22 09:22 Arformoterol 15 Mcg/2 Ml Nebu IH Not Given Q12HRT YANA Ascorbic Acid 500 mg 02/22/22 10:00 02/26/22 09:25 Ascorbic Acid 500 Mg Tab PO 500 mg QDAY YANA Administration Budesonide 1 mg 02/22/22 12:00 02/26/22 09:22 Budesonide 0.5 Mg/2 Ml Nebu IH Not Given Q12HRT YANA Clonazepam 0.5 mg 02/23/22 10:48 02/25/22 21:06 Clonazepam 0.5 Mg Tab PO 0.5 mg BID PRN Administration Anxiety Furosemide 20 mg 02/22/22 10:00 02/26/22 06:13 Furosemide 20 Mg Tab PO 20 mg 0600,1800 YANA Administration Hydrochlorothiazide 25 mg 02/22/22 10:00 02/26/22 09:21 Hydrochlorothiazide 25 Mg Tab PO 25 mg QDAY [facility] Administration Insulin Glargine 5 units 02/24/22 13:00 02/25/22 07:44 Insulin Glargine 100 Units/Ml SUB-Q 5 units QAMDIAB YANA Administration Insulin Human Lispro 0 unit 02/22/22 11:30 02/26/22 07:30 Insulin Lispro 100 Unit/Ml SUB-Q Not Given ACHS [facility] Protocol Levothyroxine Sodium 100 mcg 02/22/22 10:00 02/26/22 06:13 Levothyroxine 100 Mcg Tab PO 100 mcg DAILY@0600 [facility] Administration Lisinopril 10 mg 02/22/22 11:00 02/26/22 09:25 Lisinopril 10 Mg Tab PO Not Given QDAY [facility] Melatonin 5 mg 02/22/22 01:00 02/25/22 21:04 Melatonin 5 Mg Tab PO 5 mg QHS [facility] Administration Metoprolol Tartrate 25 mg 02/22/22 10:00 02/26/22 09:24 Metoprolol Tartrate 25 Mg Tab PO Not Given BID [facility] Nitrofurantoin Macrocrystals 100 mg 02/24/22 13:00 02/26/22 09:21 Nitrofurantoin Monohyd/M-Cryst 100 Mg Cap PO 03/01/22 12:59 100 mg Q12HR YANA Administration Nitroglycerin 0.4 mg 02/22/22 09:30 Nitroglycerin 0.4 Mg Tab Subl SL Q5M PRN Chest Pain Pantoprazole Sodium 40 mg 02/22/22 11:00 02/26/22 09:21 Pantoprazole 40 Mg Tab PO 40 mg DAILY YANA Administration Potassium Chloride 10 meq 02/22/22 11:30 02/26/22 09:24 Potassium Chloride Er 10 Meq Tab PO 10 meq BID YANA Administration Quetiapine Fumarate 100 mg 02/22/22 10:00 02/26/22 09:21 Quetiapine 100 Mg Tab PO 100 mg BID YANA Administration Sertraline HCl 50 mg 02/22/22 10:00 02/26/22 09:27 Sertraline 50 Mg Tab PO 50 mg QDAY YANA Administration Nutrition/Malnutrition Assess - Dietary Evaluation Nutrition/Malnutrition Findings: Nutrition Notes Start: 02/22/22 15:25 Freq: Status: Active Protocol: Document 02/22/22 15:25 ANGELA (Rec: 02/22/22 15:34 ANGELA [id number]) Nutrition Notes Need for Assessment generated from: Low BMI Initial or Follow up Assessment Other Pertinent Diagnosis Major Depressive Disorder, Suicidal Ideation. Current Diet Cardiac/Consistent Carbohydrates Diet (since B ). Height 5 ft 4.57 in Weight 54.7 kg [place] Body Weight (kg) 55.84 BMI 20.3 Intake Prior to Admission Good Weight change and time frame POt denies having loss body weight [employer]. Weight Status Appropriate Subjective/Other Information RD consult for Low BMI assessment. Anthropometric data has been corrected on the chart and Pt is no longer Low BMI. No reports on Pt's PO intake of meals at the time. Pt is on Room Air, O2 saturation @ 94%, according to Vital Signs notes. Percent of energy/protein needs met: Prescribed Cardiac/Consistent Carbohydrates Diet provides for energy/protein needs (1, 977 Kcal/86 g) during LOS. Nutrition Intervention Revisit per MD consult or patient Sign Off request: Additional Comments Continue monitoring food tolerance, %PO intake of meals , and BM.
[2022-02-26] MEDS: clonazePAM 0.5 MG TAB PO PRN (20:51)
[2022-02-26] MEDS: MELATONIN 5 MG TAB PO SCH (21:43)
[2022-02-27] MEDS: LEVOTHYROXINE 100 MCG TAB PO SCH (06:02)
[2022-02-27] MEDS: FUROSEMIDE 20 MG TAB PO SCH ×2 (06:02→17:04)
[2022-02-27] MEDS: INSULIN LISPRO 100 UNIT/ML SUB-Q SCH ×4 (07:45→22:00)
--- NOTE | 2022-02-27 08:25 | Progress Note ---
Subjective Date of service: 02/27/22 Principal diagnosis: Major Depressive Disorder, r/o Neurocognitive Disorder Subjective Comment: The patient was seen today. She is walking to the dayroom for breakfast. She she says she's doing well and slept well. She denies SI/HI or hallucinations of any kind. 02/26 The patient was seen today. She says she's doing well. She denies SI/HI or hallucinations of any kind. 02/25 The patient says seen today. She says she's doing okay and ready to go home. She is confused and thinks she lives with her daughter. Reports state she's resides in a local [place]. The patient says her appetite is good. She denies S I/HI or hallucinations of any kind. 02/24: The patient was seen this morning. She is calm, cooperative and oriented to self. She continues to present with some confusion, rates depression as 1/110. The patient denies any current suicidal/homicidal ideation and denies hallucinations. No changes made today. 02/23: The patient was seen this morning. She presents with restlessness and confusion. She continues to pace, requesting to be discharged. Start Klonopin 0.5mg po BID prn for anxiety REVIEW OF SYSTEMS Constitutional: Negative for weight loss ENT: Negative for stridor Respiratory: Negative for cough or hemoptysis All other systems reviewed and are negative MENTAL STATUS EXAMINATION General Appearance and Behavior: Age appropriate, wearing appropriate clothes, cooperative, polite with questioning, good eye contact Cooperation: cooperative Psychomotor Behavior: Psychomotor normal Mood: Okay Affect and affective range: congruent with stated mood Thought Process: circumstantial Thought Content: Reality oriented Speech: Normal volume, Regular rate and rhythm Suicidal Ideation: Denies Homicidal Ideation: Denies Hallucination: Sometimes Delusions: None elicited Impulse Control: Limited Insight and Judgment: Limited Memory: Intact Attention: attentive Orientation: Alert and oriented Diagnoses: Major depressive disorder R/O Cognitive Disorder Treatment Plan: Patient admitted for inpatient psychiatric evaluation, medication adjustment and close monitoring The patient's behavior, mood, sleep and appetite will be closely monitored. Patient enrolled in individual and group therapeutic sessions and encouraged to attend. Patient provided with a safe and structured environment. Patient's physical health needs will be addressed by the Hospitalist. Hospitalist Consulted Labs including CBC, CMP, Lipid profile and Hemoglobin A1C levels ordered for baseline reference Social Assessment will be completed and the Collections Analyst will work with patient and family to ensure a suitable and safe disposition Medication adjustment will be made as clinically indicated Continue home meds Usual Wellness Orthodoxy/Preservation: - Start Trazodone 50 mg po QHS & 50 mg po QHS PRN between 10 PM & 2 AM for insomnia - Start Melatonin 5 mg po QHS to promote circadian rhythm The patient agreed on the treatment plan, understood the risk, benefit, alternative treatment, potential consequence of no treatment, and gave informed consent. Estimated days: [address] Goldman Medications and Allergies Allergies Allergy/AdvReac Type Severity Reaction Status Date / Time codeine Allergy Unknown Verified 02/21/22 22:24 Home Medications Medication Instructions Recorded Confirmed Last Taken Type Albuterol Sulfate [Proair 2 puff INHALATION UNK 02/22/22 02/22/22 Unknown History Respiclick] Amiodarone [Cordarone 200 MG TAB] 200 mg PO DAILY 02/22/22 02/22/22 Unknown History Apixaban [Eliquis] 5 mg PO BID 02/22/22 02/22/22 Unknown History Ascorbic Acid [Vitamin C] 500 mg PO QDAY 02/22/22 02/22/22 Unknown History Budesonide/Formoterol Fumarate 10.2 gm IH BID 02/22/22 02/22/22 Unknown History [Symbicort 160-4.5 Mcg Inhaler] Furosemide [Lasix] 20 mg PO BID 02/22/22 02/22/22 Unknown History Levothyroxine [Synthroid] 100 mcg PO QAM 02/22/22 02/22/22 Unknown History Melatonin [Melatonin 3MG TAB] 3 mg PO HS 02/22/22 02/22/22 Unknown History Metoprolol [Lopressor] 25 mg PO BID 02/22/22 02/22/22 Unknown History Nitroglycerin [Nitrostat] 0.4 mg SL Q5M PRN 02/22/22 02/22/22 Unknown History Omeprazole 40 mg PO DAILY 02/22/22 02/22/22 Unknown History Potassium Chloride [K-Dur] 10 meq PO BID 02/22/22 02/22/22 Unknown History QUEtiapine [SEROquel] 100 mg PO BID 02/22/22 02/22/22 Unknown History Quinapril HCl [Accupril] 20 mg PO DAILY 02/22/22 02/22/22 Unknown History Sertraline [Zoloft] 50 mg PO QDAY 02/22/22 02/22/22 Unknown History hydroCHLOROthiazide [HCTZ] 25 mg PO QDAY 02/22/22 02/22/22 Unknown History Active Meds: Active Medications Albuterol (Albuterol 2.5 Mg/3 Ml Nebu) 2.5 mg IH Q4HRT PRN PRN Reason: Shortness Of Breath Last Admin: 02/22/22 18:30 Dose: 2.5 mg Amiodarone HCl (Amiodarone 200 Mg Tab) 200 mg PO DAILY [facility] Last Admin: 02/26/22 09:23 Dose: 200 mg Apixaban (Apixaban 5 Mg Tab) 5 mg PO Q12HR [facility] [place]; Protocol Last Admin: 02/26/22 21:43 Dose: 5 mg Arformoterol Tartrate (Arformoterol 15 Mcg/2 Ml Nebu) 15 mcg IH Q12HRT [facility] [place] Last Admin: 02/26/22 21:14 Dose: Not Given Ascorbic Acid (Ascorbic Acid 500 Mg Tab) 500 mg PO QDAY [facility] [place] Last Admin: 02/26/22 09:25 Dose: 500 mg Budesonide (Budesonide 0.5 Mg/2 Ml Nebu) 1 mg IH Q12HRT [facility] [place] Last Admin: 02/26/22 21:14 Dose: Not Given Clonazepam (Clonazepam 0.5 Mg Tab) 0.5 mg PO BID PRN PRN Reason: Anxiety Last Admin: 02/26/22 20:51 Dose: 0.5 mg Furosemide (Furosemide 20 Mg Tab) 20 mg PO 0600,1800 [facility] [place] Last Admin: 02/27/22 06:02 Dose: 20 mg Hydrochlorothiazide (Hydrochlorothiazide 25 Mg Tab) 25 mg PO QDAY [facility] [place] Last Admin: 02/26/22 09:21 Dose: 25 mg Insulin Glargine (Insulin Glargine 100 Units/Ml) 5 units SUB-Q QAMDIAB [facility] Last Admin: 02/26/22 10:16 Dose: 5 units Insulin Human Lispro (Insulin Lispro 100 Unit/Ml) 0 unit SUB-Q ACHS [facility] [place]; Protocol Last Admin: 02/26/22 21:43 Dose: Not Given Levothyroxine Sodium (Levothyroxine 100 Mcg Tab) 100 mcg PO DAILY@0600 [facility] [place] Last Admin: 02/27/22 06:02 Dose: 100 mcg Lisinopril (Lisinopril 10 Mg Tab) 10 mg PO QDAY [facility] [place] Last Admin: 02/26/22 09:25 Dose: Not Given Melatonin (Melatonin 5 Mg Tab) 5 mg PO QHS [facility] [place] Last Admin: 02/26/22 21:43 Dose: 5 mg Metoprolol Tartrate (Metoprolol Tartrate 25 Mg Tab) 25 mg PO BID [facility] [place] Last Admin: 02/26/22 21:43 Dose: Not Given Nitrofurantoin Macrocrystals (Nitrofurantoin Monohyd/M-Cryst 100 Mg Cap) 100 mg PO Q12HR [facility] [place] Stop: 03/01/22 12:59 Last Admin: 02/26/22 21:43 Dose: 100 mg Nitroglycerin (Nitroglycerin 0.4 Mg Tab Subl) 0.4 mg SL Q5M PRN PRN Reason: Chest Pain Pantoprazole Sodium (Pantoprazole 40 Mg Tab) 40 mg PO DAILY [facility] [place] Last Admin: 02/26/22 09:21 Dose: 40 mg Potassium Chloride (Potassium Chloride Er 10 Meq Tab) 10 meq PO BID [facility] [place] Last Admin: 02/26/22 21:42 Dose: 10 meq Quetiapine Fumarate (Quetiapine 100 Mg Tab) 100 mg PO BID [facility] [place] Last Admin: 02/26/22 21:43 Dose: 100 mg Sertraline HCl (Sertraline 50 Mg Tab) 50 mg PO QDAY [facility] [place] Last Admin: 02/26/22 09:27 Dose: 50 mg Results - Results Labs/Vitals: Laboratory Last Values WBC 5.6 K/mm3 (4.5-11.0) 02/24/22 10:27 RBC 3.36 M/mm3 (3.65-5.03) L 02/24/22 10:27 Hgb 9.8 gm/dl (10.1-14.3) L 02/24/22 10:27 Hct 29.7 % (30.3-42.9) L 02/24/22 10:27 MCV 89 fl (79-97) 02/24/22 10:27 MCH 29 pg (28-32) 02/24/22 10:27 MCHC 33 % (30-34) 02/24/22 10:27 RDW 16.2 % (13.2-15.2) H 02/24/22 10:27 Plt Count 252 K/mm3 (140-440) 02/24/22 10:27 Lymph % (Auto) 13.9 % (13.4-35.0) 02/24/22 10:27 [place] % (Auto) 8.1 % (0.0-7.3) H 02/24/22 10:27 Eos % (Auto) 6.2 % (0.0-4.3) H 02/24/22 10:27 Baso % (Auto) 1.0 % (0.0-1.8) 02/24/22 10:27 Lymph # (Auto) 0.8 K/mm3 (1.2-5.4) L 02/24/22 10:27 [place] # (Auto) 0.5 K/mm3 (0.0-0.8) 02/24/22 10:27 Eos # (Auto) 0.3 K/mm3 (0.0-0.4) 02/24/22 10:27 Baso # (Auto) 0.1 K/mm3 (0.0-0.1) 02/24/22 10:27 Seg Neutrophils % 70.8 % (40.0-70.0) H 02/24/22 10:27 Seg Neutrophils # 3.9 K/mm3 (1.8-7.7) 02/24/22 10:27 Sodium 138 mmol/L (137-145) 02/24/22 10:27 Potassium 4.0 mmol/L (3.6-5.0) 02/24/22 10:27 Chloride 101.7 mmol/L (98-107) 02/24/22 10:27 Carbon Dioxide 26 mmol/L (22-30) 02/24/22 10:27 Anion Gap 14 mmol/L 02/24/22 10:27 BUN 12 mg/dL (7-17) 02/24/22 10:27 Creatinine 0.6 mg/dL (0.6-1.2) 02/24/22 10:27 Estimated GFR > 60 ml/min 02/24/22 10:27 BUN/Creatinine Ratio 20 % 02/24/22 10:27 Glucose 202 mg/dL (65-100) H 02/24/22 10:27 POC Glucose 90 mg/dL (70-105) 06/19/22 06:06 Hemoglobin A1c 7.2 % (4-6) H 02/23/22 04:58 Calcium 8.6 mg/dL (8.4-10.2) 02/24/22 10:27 Total Bilirubin 0.20 mg/dL (0.1-1.2) 02/23/22 04:58 AST 12 units/L (5-40) 02/23/22 04:58 ALT 13 units/L (7-56) 02/23/22 04:58 Alkaline Phosphatase 112 units/L (35-129) 02/23/22 04:58 Total Protein 5.8 g/dL (6.3-8.2) L 02/23/22 04:58 Albumin 2.9 g/dL (3.9-5) L 02/23/22 04:58 Albumin/Globulin Ratio 1.0 % 02/23/22 04:58 Triglycerides 52 mg/dL (2-149) 02/23/22 04:58 Cholesterol 129 mg/dL (50-199) 02/23/22 04:58 LDL Cholesterol Direct 60 mg/dL (50-130) 02/23/22 04:58 HDL Cholesterol 65 mg/dL (40-59) H 02/23/22 04:58 Cholesterol/HDL Ratio 1.98 % 02/23/22 04:58 TSH 0.975 mlU/mL (0.270-4.200) 02/23/22 04:58 Urine Color Yellow (Yellow) 02/22/22 00:52 Urine Turbidity Clear (Clear) 02/22/22 00:52 Urine pH 5.0 (5.0-7.0) 02/22/22 00:52 Ur Specific [place] 1.017 (1.003-1.030) 02/22/22 00:52 Urine Protein <15 mg/dl mg/dL (Negative) 02/22/22 00:52 Urine Glucose (UA) Neg mg/dL (Negative) 02/22/22 00:52 Urine Ketones Neg mg/dL (Negative) 02/22/22 00:52 Urine Blood Neg (Negative) 02/22/22 00:52 Urine Nitrite Neg (Negative) 02/22/22 00:52 Urine Bilirubin Neg (Negative) 02/22/22 00:52 Urine Urobilinogen 2.0 mg/dL (<2.0) 02/22/22 00:52 Ur Leukocyte Esterase Sm (Negative) 02/22/22 00:52 Urine WBC (Auto) 17.0 /HPF (0.0-6.0) H 02/22/22 00:52 Urine RBC (Auto) 2.0 /HPF (0.0-6.0) 02/22/22 00:52 U Epithel Cells (Auto) 1.0 /HPF (0-13.0) 02/22/22 00:52 Urine Mucus Few /HPF 02/22/22 00:52 Last Vital Signs Temp 98.1 F 02/26/22 19:21 Pulse 60 02/26/22 21:43 Resp 17 02/26/22 19:21 BP 111/61 02/26/22 21:43 Pulse Ox 98 02/26/22 19:21
[2022-02-27] MEDS: ARFORMOTEROL 15 MCG/2 ML NEBU IH SCH ×2 (08:34→20:01)
[2022-02-27] MEDS: BUDESONIDE 0.5 MG/2 ML NEBU IH SCH ×2 (08:34→20:00)
[2022-02-27] MEDS: PANTOPRAZOLE 40 MG TAB PO SCH (09:38)
[2022-02-27] MEDS: hydroCHLOROthiazide 25 MG TAB PO SCH (09:38)
[2022-02-27] MEDS: QUEtiapine 100 MG TAB PO SCH ×2 (09:38→21:31)
[2022-02-27] MEDS: POTASSIUM CHLORIDE ER 10 MEQ TAB PO SCH ×2 (09:38→21:31)
[2022-02-27] MEDS: APIXABAN 5 MG TAB PO SCH ×2 (09:38→21:31)
[2022-02-27] MEDS: NITROFURANTOIN MONOHYD/M-CRYST 100 MG CAP PO SCH ×2 (09:39→21:30)
[2022-02-27] MEDS: AMIODARONE 200 MG TAB PO SCH (09:39)
[2022-02-27] MEDS: SERTRALINE 50 MG TAB PO SCH (09:39)
[2022-02-27] MEDS: ASCORBIC ACID 500 MG TAB PO SCH (09:39)
[2022-02-27] MEDS: LISINOPRIL 10 MG TAB PO SCH (09:40)
[2022-02-27] MEDS: METOPROLOL TARTRATE 25 MG TAB PO SCH ×2 (09:40→21:31)
--- NOTE | 2022-02-27 09:46 | Progress Note ---
Subjective Date of service: 02/26/22 Principal diagnosis: Major Depressive Disorder, r/o Neurocognitive Disorder Objective - Constitutional Vitals: Vital Signs - 12hr 02/27/22 09:40 Pulse Rate 65 Blood Pressure 115/56 General appearance: Present: no acute distress, well-nourished - EENT Eyes: PERRL, EOM intact ENT: hearing intact, clear oral mucosa Ears: bilateral: normal - Neck Neck: supple, normal ROM - Respiratory Respiratory effort: normal Respiratory: bilateral: CTA - Breasts Breasts: normal - Cardiovascular Rhythm: regular Heart Sounds: Present: S1 & S2. Absent: gallop, rub Extremities: pulses intact, No edema, normal color, Full ROM - Gastrointestinal General gastrointestinal: Present: soft, non-tender, non-distended, normal bowel sounds - Genitourinary Female genitourinary: normal - Integumentary Integumentary: clear, warm, dry - Musculoskeletal Musculoskeletal: 1, strength equal bilaterally - Neurologic Neurologic: moves all extremities - Psychiatric Psychiatric: memory intact, appropriate mood/affect, intact judgment & insight - Labs CBC & Chem 7: 02/24/22 10:27 02/24/22 10:27 Labs: Abnormal lab results 02/26/22 02/26/22 Range/Units 11:30 16:09 POC Glucose 121 H 180 H (70-105) mg/dL
[2022-02-27] MEDS: INSULIN GLARGINE 100 UNITS/ML SUB-Q SCH (09:49)
--- NOTE | 2022-02-27 11:24 | Progress Note ---
Assessment and Plan - Patient Problems (1) Vascular dementia with behavioral disturbance Current Visit: Yes Status: Acute Plan to address problem: Verbal prompting, verbal redirection, benzodiazepine therapy as clinically indicated. (2) Cerebral atherosclerosis Current Visit: Yes Status: Acute Plan to address problem: Antiplatelet therapy as clinically indicated, supportive care, risk factor reduction. (3) MDD (major depressive disorder) Current Visit: Yes Status: Acute Plan to address problem: Continue medical management, supportive care. (4) LAI (generalized anxiety disorder) Current Visit: Yes Status: Acute Plan to address problem: Benzodiazepine therapy as clinically indicated. Supportive care. Behavior change counseling. (5) DM2 (diabetes mellitus, type 2) Current Visit: Yes Status: Acute Plan to address problem: Consistent carbohydrate diet, continue medical management, supportive care. Accu-Chek. (6) Hypertension Current Visit: Yes Status: Acute Qualifiers: Hypertension type: primary hypertension Qualified Code(s): I10 - Essential (primary) hypertension Plan to address problem: Monitor blood pressure every shift, continue medical management. (7) UTI (urinary tract infection) Current Visit: Yes Status: Acute Plan to address problem: Full course antibiotic therapy. (8) A-fib Current Visit: Yes Status: Chronic Plan to address problem: Continue medical management, supportive care. Continue therapeutic anticoagulation. (9) Hypothyroidism Current Visit: Yes Status: Acute Plan to address problem: Continue Synthroid therapy, supportive care. (10) Advance care planning Current Visit: Yes Status: Acute Plan to address problem: Disease education done, care plan discussed, diagnoses discussed, prognosis discussed, patient is full code. Patient knowledges understanding and agreement with care plan, +30 minutes. (11) Preventative health care Current Visit: Yes Status: Acute Plan to address problem: Patient counseled regarding home safety, risk factor reduction, patient instructed to follow-up with primary care physician for all age and risk factor appropriate screening test. +30 minutes. History Interval history: 87 YO Female with Vascular Dementia with Behavioral Disturbance, Cerebral Atherosclerosis, Atrial Fib on therapeutic anticoagulation with Eliquis, Hypothyroidism, DM, HTN, MDD, LAI, UTI on full coarse antibiotic therapy admitted to [facility] for psychiatric stabilization. Consult placed by Dr. Telles for medical management. Pt seen and evaluated in the recreation room. Pt resting comfortably today. Patient confused with tangential thinking but appears to be at baseline level of cognition and function. No reported nursing events. Hospitalist Physical - Constitutional Vitals: Temp Pulse Resp BP Pulse Ox 98.1 F 65 17 115/56 98 02/26/22 19:21 02/27/22 09:40 02/26/22 19:21 02/27/22 09:40 02/26/22 19:21 General appearance: Present: no acute distress, cachectic - EENT Eyes: Present: PERRL ENT: hearing decreased - Neck Neck: Present: supple - Respiratory Respiratory effort: normal Respiratory: bilateral: diminished - Cardiovascular Rhythm: irregularly irregular - Extremities Extremities: no ischemia Peripheral Pulses: within normal limits - Abdominal General gastrointestinal: soft, non-tender, non-distended - Integumentary Integumentary: Present: clear, dry - Psychiatric Psychiatric: cooperative - Neurologic Neurologic: CNII-XII intact Results - Labs CBC & Chem 7: 02/24/22 10:27 02/24/22 10:27 Labs: Laboratory Last Values WBC 5.6 K/mm3 (4.5-11.0) 02/24/22 10:27 RBC 3.36 M/mm3 (3.65-5.03) L 02/24/22 10:27 Hgb 9.8 gm/dl (10.1-14.3) L 02/24/22 10:27 Hct 29.7 % (30.3-42.9) L 02/24/22 10:27 MCV 89 fl (79-97) 02/24/22 10:27 MCH 29 pg (28-32) 02/24/22 10:27 MCHC 33 % (30-34) 02/24/22 10:27 RDW 16.2 % (13.2-15.2) H 02/24/22 10:27 Plt Count 252 K/mm3 (140-440) 02/24/22 10:27 Lymph % (Auto) 13.9 % (13.4-35.0) 02/24/22 10:27 [place] % (Auto) 8.1 % (0.0-7.3) H 02/24/22 10:27 Eos % (Auto) 6.2 % (0.0-4.3) H 02/24/22 10:27 Baso % (Auto) 1.0 % (0.0-1.8) 02/24/22 10:27 Lymph # (Auto) 0.8 K/mm3 (1.2-5.4) L 02/24/22 10:27 [place] # (Auto) 0.5 K/mm3 (0.0-0.8) 02/24/22 10:27 Eos # (Auto) 0.3 K/mm3 (0.0-0.4) 02/24/22 10:27 Baso # (Auto) 0.1 K/mm3 (0.0-0.1) 02/24/22 10:27 Seg Neutrophils % 70.8 % (40.0-70.0) H 02/24/22 10:27 Seg Neutrophils # 3.9 K/mm3 (1.8-7.7) 02/24/22 10:27 Sodium 138 mmol/L (137-145) 02/24/22 10:27 Potassium 4.0 mmol/L (3.6-5.0) 02/24/22 10:27 Chloride 101.7 mmol/L (98-107) 02/24/22 10:27 Carbon Dioxide 26 mmol/L (22-30) 02/24/22 10:27 Anion Gap 14 mmol/L 02/24/22 10:27 BUN 12 mg/dL (7-17) 02/24/22 10:27 Creatinine 0.6 mg/dL (0.6-1.2) 02/24/22 10:27 Estimated GFR > 60 ml/min 02/24/22 10:27 BUN/Creatinine Ratio 20 % 02/24/22 10:27 Glucose 202 mg/dL (65-100) H 02/24/22 10:27 POC Glucose 90 mg/dL (70-105) 02/27/22 06:06 Hemoglobin A1c 7.2 % (4-6) H 02/23/22 04:58 Calcium 8.6 mg/dL (8.4-10.2) 02/24/22 10:27 Total Bilirubin 0.20 mg/dL (0.1-1.2) 02/23/22 04:58 AST 12 units/L (5-40) 02/23/22 04:58 ALT 13 units/L (7-56) 02/23/22 04:58 Alkaline Phosphatase 112 units/L (35-129) 02/23/22 04:58 Total Protein 5.8 g/dL (6.3-8.2) L 02/23/22 04:58 Albumin 2.9 g/dL (3.9-5) L 02/23/22 04:58 Albumin/Globulin Ratio 1.0 % 02/23/22 04:58 Triglycerides 52 mg/dL (2-149) 02/23/22 04:58 Cholesterol 129 mg/dL (50-199) 02/23/22 04:58 LDL Cholesterol Direct 60 mg/dL (50-130) 02/23/22 04:58 HDL Cholesterol 65 mg/dL (40-59) H 02/23/22 04:58 Cholesterol/HDL Ratio 1.98 % 02/23/22 04:58 TSH 0.975 mlU/mL (0.270-4.200) 02/23/22 04:58 Urine Color Yellow (Yellow) 02/22/22 00:52 Urine Turbidity Clear (Clear) 02/22/22 00:52 Urine pH 5.0 (5.0-7.0) 02/22/22 00:52 Ur Specific [place] 1.017 (1.003-1.030) 02/22/22 00:52 Urine Protein <15 mg/dl mg/dL (Negative) 02/22/22 00:52 Urine Glucose (UA) Neg mg/dL (Negative) 02/22/22 00:52 Urine Ketones Neg mg/dL (Negative) 02/22/22 00:52 Urine Blood Neg (Negative) 02/22/22 00:52 Urine Nitrite Neg (Negative) 02/22/22 00:52 Urine Bilirubin Neg (Negative) 02/22/22 00:52 Urine Urobilinogen 2.0 mg/dL (<2.0) 02/22/22 00:52 Ur Leukocyte Esterase Sm (Negative) 02/22/22 00:52 Urine WBC (Auto) 17.0 /HPF (0.0-6.0) H 02/22/22 00:52 Urine RBC (Auto) 2.0 /HPF (0.0-6.0) 02/22/22 00:52 U Epithel Cells (Auto) 1.0 /HPF (0-13.0) 02/22/22 00:52 Urine Mucus Few /HPF 02/22/22 00:52 Microbiology: Microbiology 02/23/22 05:06 Peripheral/Venous Blood Culture - Preliminary NO GROWTH AFTER 4 DAYS 02/23/22 04:58 Peripheral/Venous Blood Culture - Preliminary NO GROWTH AFTER 4 DAYS [place]/IV: Voiding Method Toilet Active Medications - Current Medications Current Medications: Generic Name Dose Route Start Last Admin Trade Name Freq PRN Reason Stop Dose Admin Albuterol 2.5 mg 02/22/22 12:00 02/22/22 18:30 Albuterol 2.5 Mg/3 Ml Nebu IH 2.5 mg Q4HRT PRN Administration Shortness Of Breath Amiodarone HCl 200 mg 02/22/22 10:00 02/27/22 09:39 Amiodarone 200 Mg Tab PO 200 mg DAILY YANA Administration Apixaban 5 mg 02/22/22 11:00 02/27/22 09:38 Apixaban 5 Mg Tab PO 5 mg Q12HR YANA Administration Protocol Arformoterol Tartrate 15 mcg 02/22/22 12:00 02/27/22 08:34 Arformoterol 15 Mcg/2 Ml Nebu IH Not Given Q12HRT YANA Ascorbic Acid 500 mg 02/22/22 10:00 02/27/22 09:39 Ascorbic Acid 500 Mg Tab PO 500 mg QDAY YANA Administration Budesonide 1 mg 02/22/22 12:00 02/27/22 08:34 Budesonide 0.5 Mg/2 Ml Nebu IH Not Given Q12HRT YANA Clonazepam 0.5 mg 02/23/22 10:48 02/26/22 20:51 Clonazepam 0.5 Mg Tab PO 0.5 mg BID PRN Administration Anxiety Furosemide 20 mg 02/22/22 10:00 02/27/22 06:02 Furosemide 20 Mg Tab PO 20 mg 0600,1800 YANA Administration Hydrochlorothiazide 25 mg 02/22/22 10:00 02/27/22 09:38 Hydrochlorothiazide 25 Mg Tab PO 25 mg QDAY YANA Administration Insulin Glargine 5 units 02/24/22 13:00 02/27/22 09:49 Insulin Glargine 100 Units/Ml SUB-Q 5 units QAMDIAB YANA Administration Insulin Human Lispro 0 unit 02/22/22 11:30 02/27/22 07:45 Insulin Lispro 100 Unit/Ml SUB-Q Not Given ACHS [facility] Protocol Levothyroxine Sodium 100 mcg 02/22/22 10:00 02/27/22 06:02 Levothyroxine 100 Mcg Tab PO 100 mcg DAILY@0600 [facility] Administration Lisinopril 10 mg 02/22/22 11:00 02/27/22 09:40 Lisinopril 10 Mg Tab PO Not Given QDAY YANA Melatonin 5 mg 02/22/22 01:00 02/26/22 21:43 Melatonin 5 Mg Tab PO 5 mg QHS [facility] Administration Metoprolol Tartrate 25 mg 02/22/22 10:00 02/27/22 09:40 Metoprolol Tartrate 25 Mg Tab PO Not Given BID YANA Nitrofurantoin Macrocrystals 100 mg 02/24/22 13:00 02/27/22 09:39 Nitrofurantoin Monohyd/M-Cryst 100 Mg Cap PO 03/01/22 12:59 100 mg Q12HR YANA Administration Nitroglycerin 0.4 mg 02/22/22 09:30 Nitroglycerin 0.4 Mg Tab Subl SL Q5M PRN Chest Pain Pantoprazole Sodium 40 mg 02/22/22 11:00 02/27/22 09:38 Pantoprazole 40 Mg Tab PO 40 mg DAILY [facility] Administration Potassium Chloride 10 meq 02/22/22 11:30 02/27/22 09:38 Potassium Chloride Er 10 Meq Tab PO 10 meq BID [facility] Administration Quetiapine Fumarate 100 mg 02/22/22 10:00 02/27/22 09:38 Quetiapine 100 Mg Tab PO 100 mg BID [facility] Administration Sertraline HCl 50 mg 02/22/22 10:00 02/27/22 09:39 Sertraline 50 Mg Tab PO 50 mg QDAY YANA Administration Nutrition/Malnutrition Assess - Dietary Evaluation Nutrition/Malnutrition Findings: Nutrition Notes Start: 02/22/22 15:25 Freq: Status: Active Protocol: Document 02/22/22 15:25 ANGELA (Rec: 02/22/22 15:34 ANGELA [id number]) Nutrition Notes Need for Assessment generated from: Low BMI Initial or Follow up Assessment Other Pertinent Diagnosis Major Depressive Disorder, Suicidal Ideation. Current Diet Cardiac/Consistent Carbohydrates Diet (since B ). 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 Weight Status Appropriate Subjective/Other Information RD consult for Low BMI assessment. Anthropometric data has been corrected on the chart and Pt is no longer Low BMI. No reports on Pt's PO intake of meals at the time. Pt is on Room Air, O2 saturation @ 94%, according to Vital Signs notes. Percent of energy/protein needs met: Prescribed Cardiac/Consistent Carbohydrates Diet provides for energy/protein needs (1, 977 Kcal/86 g) during LOS. Nutrition Intervention Revisit per MD consult or patient Sign Off request: Additional Comments Continue monitoring food tolerance, %PO intake of meals , and BM.
[2022-02-27] MEDS: clonazePAM 0.5 MG TAB PO PRN (20:25)
[2022-02-27] MEDS: MELATONIN 5 MG TAB PO SCH (21:31)
[2022-02-28] MEDS: FUROSEMIDE 20 MG TAB PO SCH ×2 (06:19→17:06)
[2022-02-28] MEDS: LEVOTHYROXINE 100 MCG TAB PO SCH (06:19)
[2022-02-28] MEDS: INSULIN LISPRO 100 UNIT/ML SUB-Q SCH ×4 (08:15→22:17)
--- NOTE | 2022-02-28 09:32 | Progress Note ---
Subjective Date of service: 02/28/22 Principal diagnosis: Major Depressive Disorder, r/o Neurocognitive Disorder Subjective Comment: The patient was seen today. She says she feels okay. She denies SI/HI or hallucinations. But staff says the patient has been anxious, pacing and constantly obsessed with going home. 02/27 The patient was seen today. She is walking to the dayroom for breakfast. She she says she's doing well and slept well. She denies SI/HI or hallucinations of any kind. 02/26 The patient was seen today. She says she's doing well. She denies SI/HI or hallucinations of any kind. 02/25 The patient says seen today. She says she's doing okay and ready to go home. She is confused and thinks she lives with her daughter. Reports state she's resides in a local [place]. The patient says her appetite is good. She denies SI/HI or hallucinations of any kind. 02/24: The patient was seen this morning. She is calm, cooperative and oriented to self. She continues to present with some confusion, rates depression as 1/110. The patient denies any current suicidal/homicidal ideation and denies hallucinations. No changes made today. 02/23: The patient was seen this morning. She presents with restlessness and confusion. She continues to pace, requesting to be discharged. Start Klonopin 0.5mg po BID prn for anxiety REVIEW OF SYSTEMS Constitutional: Negative for weight loss ENT: Negative for stridor Respiratory: Negative for cough or hemoptysis All other systems reviewed and are negative MENTAL STATUS EXAMINATION General Appearance and Behavior: Age appropriate, wearing appropriate clothes, cooperative, polite with questioning, good eye contact Cooperation: cooperative Psychomotor Behavior: Psychomotor normal Mood: Okay Affect and affective range: congruent with stated mood Thought Process: circumstantial Thought Content: Reality oriented Speech: Normal volume, Regular rate and rhythm Suicidal Ideation: Denies Homicidal Ideation: Denies Hallucination: Sometimes Delusions: None elicited Impulse Control: Limited Insight and Judgment: Limited Memory: Intact Attention: attentive Orientation: Alert and oriented Diagnoses: Major depressive disorder R/O Cognitive Disorder Treatment Plan: Patient admitted for inpatient psychiatric evaluation, medication adjustment and close monitoring The patient's behavior, mood, sleep and appetite will be closely monitored. Patient enrolled in individual and group therapeutic sessions and encouraged to attend. Patient provided with a safe and structured environment. Patient's physical health needs will be addressed by the Hospitalist. Hospitalist Consulted Labs including CBC, CMP, Lipid profile and Hemoglobin A1C levels ordered for baseline reference Social Assessment will be completed and the Protector Plate Attacher will work with patient and family to ensure a suitable and safe disposition Medication adjustment will be made as clinically indicated Continue home meds Usual Wellness Anabaptism/Preservation: - Start Trazodone 50 mg po QHS & 50 mg po QHS PRN between 10 PM & 2 AM for insomnia - Start Melatonin 5 mg po QHS to promote circadian rhythm The patient agreed on the treatment plan, understood the risk, benefit, alternative treatment, potential consequence of no treatment, and gave informed consent. Estimated days: [address] Goldman Medications and Allergies Allergies Allergy/AdvReac Type Severity Reaction Status Date / Time codeine Allergy Unknown Verified 02/21/22 22:24 Home Medications Medication Instructions Recorded Confirmed Last Taken Type Albuterol Sulfate [Proair 2 puff INHALATION UNK 02/22/22 02/22/22 Unknown History Respiclick] Amiodarone [Cordarone 200 MG TAB] 200 mg PO DAILY 02/22/22 02/22/22 Unknown History Apixaban [Eliquis] 5 mg PO BID 02/22/22 02/22/22 Unknown History Ascorbic Acid [Vitamin C] 500 mg PO QDAY 02/22/22 02/22/22 Unknown History Budesonide/Formoterol Fumarate 10.2 gm IH BID 02/22/22 02/22/22 Unknown History [Symbicort 160-4.5 Mcg Inhaler] Furosemide [Lasix] 20 mg PO BID 02/22/22 02/22/22 Unknown History Levothyroxine [Synthroid] 100 mcg PO QAM 02/22/22 02/22/22 Unknown History Melatonin [Melatonin 3MG TAB] 3 mg PO HS 02/22/22 02/22/22 Unknown History Metoprolol [Lopressor] 25 mg PO BID 02/22/22 02/22/22 Unknown History Nitroglycerin [Nitrostat] 0.4 mg SL Q5M PRN 02/22/22 02/22/22 Unknown History Omeprazole 40 mg PO DAILY 02/22/22 02/22/22 Unknown History Potassium Chloride [K-Dur] 10 meq PO BID 02/22/22 02/22/22 Unknown History QUEtiapine [SEROquel] 100 mg PO BID 02/22/22 02/22/22 Unknown History Quinapril HCl [Accupril] 20 mg PO DAILY 02/22/22 02/22/22 Unknown History Sertraline [Zoloft] 50 mg PO QDAY 02/22/22 02/22/22 Unknown History hydroCHLOROthiazide [HCTZ] 25 mg PO QDAY 02/22/22 02/22/22 Unknown History Active Meds: Active Medications Albuterol (Albuterol 2.5 Mg/3 Ml Nebu) 2.5 mg IH Q4HRT PRN PRN Reason: Shortness Of Breath Last Admin: 02/22/22 18:30 Dose: 2.5 mg Amiodarone HCl (Amiodarone 200 Mg Tab) 200 mg PO DAILY [facility] Last Admin: 02/27/22 09:39 Dose: 200 mg Apixaban (Apixaban 5 Mg Tab) 5 mg PO Q12HR [facility]; Protocol Last Admin: 02/27/22 21:31 Dose: 5 mg Arformoterol Tartrate (Arformoterol 15 Mcg/2 Ml Nebu) 15 mcg IH Q12HRT [facility] Last Admin: 02/27/22 20:01 Dose: 15 mcg Ascorbic Acid (Ascorbic Acid 500 Mg Tab) 500 mg PO QDAY [facility] Last Admin: 02/27/22 09:39 Dose: 500 mg Budesonide (Budesonide 0.5 Mg/2 Ml Nebu) 1 mg IH Q12HRT [facility] Last Admin: 02/27/22 20:00 Dose: 1 mg Clonazepam (Clonazepam 0.5 Mg Tab) 0.5 mg PO BID PRN PRN Reason: Anxiety Last Admin: 02/27/22 20:25 Dose: 0.5 mg Furosemide (Furosemide 20 Mg Tab) 20 mg PO 0600,1800 [facility] Last Admin: 02/28/22 06:19 Dose: 20 mg Hydrochlorothiazide (Hydrochlorothiazide 25 Mg Tab) 25 mg PO QDAY [facility] Last Admin: 02/27/22 09:38 Dose: 25 mg Insulin Glargine (Insulin Glargine 100 Units/Ml) 5 units SUB-Q QAMDIAB [facility] Last Admin: 02/27/22 09:49 Dose: 5 units Insulin Human Lispro (Insulin Lispro 100 Unit/Ml) 0 unit SUB-Q ACHS [facility]; Protocol Last Admin: 02/28/22 08:15 Dose: Not Given Levothyroxine Sodium (Levothyroxine 100 Mcg Tab) 100 mcg PO DAILY@0600 [facility] Last Admin: 02/28/22 06:19 Dose: 100 mcg Lisinopril (Lisinopril 10 Mg Tab) 10 mg PO QDAY [facility] Last Admin: 02/27/22 09:40 Dose: Not Given Melatonin (Melatonin 5 Mg Tab) 5 mg PO QHS [facility] Last Admin: 02/27/22 21:31 Dose: 5 mg Metoprolol Tartrate (Metoprolol Tartrate 25 Mg Tab) 25 mg PO BID [facility] Last Admin: 02/27/22 21:31 Dose: 25 mg Nitrofurantoin Macrocrystals (Nitrofurantoin Monohyd/M-Cryst 100 Mg Cap) 100 mg PO Q12HR [facility] Stop: 03/01/22 12:59 Last Admin: 02/27/22 21:30 Dose: 100 mg Nitroglycerin (Nitroglycerin 0.4 Mg Tab Subl) 0.4 mg SL Q5M PRN PRN Reason: Chest Pain Pantoprazole Sodium (Pantoprazole 40 Mg Tab) 40 mg PO DAILY [facility] Last Admin: 02/27/22 09:38 Dose: 40 mg Potassium Chloride (Potassium Chloride Er 10 Meq Tab) 10 meq PO BID [facility] Last Admin: 02/27/22 21:31 Dose: 10 meq Quetiapine Fumarate (Quetiapine 100 Mg Tab) 100 mg PO BID [facility] Last Admin: 02/27/22 21:31 Dose: 100 mg Sertraline HCl (Sertraline 50 Mg Tab) 50 mg PO QDAY [facility] Last Admin: 02/27/22 09:39 Dose: 50 mg Results - Results Labs/Vitals: Laboratory Last Values WBC 5.6 K/mm3 (4.5-11.0) 02/24/22 10:27 RBC 3.36 M/mm3 (3.65-5.03) L 02/24/22 10:27 Hgb 9.8 gm/dl (10.1-14.3) L 02/24/22 10:27 Hct 29.7 % (30.3-42.9) L 02/24/22 10:27 MCV 89 fl (79-97) 02/24/22 10:27 MCH 29 pg (28-32) 02/24/22 10:27 MCHC 33 % (30-34) 02/24/22 10:27 RDW 16.2 % (13.2-15.2) H 02/24/22 10:27 Plt Count 252 K/mm3 (140-440) 02/24/22 10:27 Lymph % (Auto) 13.9 % (13.4-35.0) 02/24/22 10:27 [place] % (Auto) 8.1 % (0.0-7.3) H 02/24/22 10:27 Eos % (Auto) 6.2 % (0.0-4.3) H 02/24/22 10:27 Baso % (Auto) 1.0 % (0.0-1.8) 02/24/22 10:27 Lymph # (Auto) 0.8 K/mm3 (1.2-5.4) L 02/24/22 10:27 [place] # (Auto) 0.5 K/mm3 (0.0-0.8) 02/24/22 10:27 Eos # (Auto) 0.3 K/mm3 (0.0-0.4) 02/24/22 10:27 Baso # (Auto) 0.1 K/mm3 (0.0-0.1) 02/24/22 10:27 Seg Neutrophils % 70.8 % (40.0-70.0) H 02/24/22 10:27 Seg Neutrophils # 3.9 K/mm3 (1.8-7.7) 02/24/22 10:27 Sodium 138 mmol/L (137-145) 02/24/22 10:27 Potassium 4.0 mmol/L (3.6-5.0) 02/24/22 10:27 Chloride 101.7 mmol/L (98-107) 02/24/22 10:27 Carbon Dioxide 26 mmol/L (22-30) 02/24/22 10:27 Anion Gap 14 mmol/L 02/24/22 10:27 BUN 12 mg/dL (7-17) 02/24/22 10:27 Creatinine 0.6 mg/dL (0.6-1.2) 02/24/22 10:27 Estimated GFR > 60 ml/min 02/24/22 10:27 BUN/Creatinine Ratio 20 % 02/24/22 10:27 Glucose 202 mg/dL (65-100) H 02/24/22 10:27 POC Glucose 106 mg/dL (70-105) H 02/28/22 06:25 Hemoglobin A1c 7.2 % (4-6) H 02/23/22 04:58 Calcium 8.6 mg/dL (8.4-10.2) 02/24/22 10:27 Total Bilirubin 0.20 mg/dL (0.1-1.2) 02/23/22 04:58 AST 12 units/L (5-40) 02/23/22 04:58 ALT 13 units/L (7-56) 02/23/22 04:58 Alkaline Phosphatase 112 units/L (35-129) 02/23/22 04:58 Total Protein 5.8 g/dL (6.3-8.2) L 02/23/22 04:58 Albumin 2.9 g/dL (3.9-5) L 02/23/22 04:58 Albumin/Globulin Ratio 1.0 % 02/23/22 04:58 Triglycerides 52 mg/dL (2-149) 02/23/22 04:58 Cholesterol 129 mg/dL (50-199) 02/23/22 04:58 LDL Cholesterol Direct 60 mg/dL (50-130) 02/23/22 04:58 HDL Cholesterol 65 mg/dL (40-59) H 02/23/22 04:58 Cholesterol/HDL Ratio 1.98 % 02/23/22 04:58 TSH 0.975 mlU/mL (0.270-4.200) 02/23/22 04:58 Urine Color Yellow (Yellow) 02/22/22 00:52 Urine Turbidity Clear (Clear) 02/22/22 00:52 Urine pH 5.0 (5.0-7.0) 02/22/22 00:52 Ur Specific [place] 1.017 (1.003-1.030) 02/22/22 00:52 Urine Protein <15 mg/dl mg/dL (Negative) 02/22/22 00:52 Urine Glucose (UA) Neg mg/dL (Negative) 02/22/22 00:52 Urine Ketones Neg mg/dL (Negative) 02/22/22 00:52 Urine Blood Neg (Negative) 02/22/22 00:52 Urine Nitrite Neg (Negative) 02/22/22 00:52 Urine Bilirubin Neg (Negative) 02/22/22 00:52 Urine Urobilinogen 2.0 mg/dL (<2.0) 02/22/22 00:52 Ur Leukocyte Esterase Sm (Negative) 02/22/22 00:52 Urine WBC (Auto) 17.0 /HPF (0.0-6.0) H 02/22/22 00:52 Urine RBC (Auto) 2.0 /HPF (0.0-6.0) 02/22/22 00:52 U Epithel Cells (Auto) 1.0 /HPF (0-13.0) 02/22/22 00:52 Urine Mucus Few /HPF 02/22/22 00:52 Last Vital Signs Temp 98.2 F 02/28/22 08:04 Pulse 57 L 02/28/22 08:04 Resp 16 02/28/22 08:04 BP 116/48 02/28/22 08:04 Pulse Ox 96 02/28/22 08:04
[2022-02-28] MEDS: ARFORMOTEROL 15 MCG/2 ML NEBU IH SCH ×2 (09:37→20:03)
[2022-02-28] MEDS: BUDESONIDE 0.5 MG/2 ML NEBU IH SCH ×2 (09:37→20:03)
[2022-02-28] MEDS: ASCORBIC ACID 500 MG TAB PO SCH (10:04)
[2022-02-28] MEDS: PANTOPRAZOLE 40 MG TAB PO SCH (10:04)
[2022-02-28] MEDS: SERTRALINE 50 MG TAB PO SCH (10:04)
[2022-02-28] MEDS: APIXABAN 5 MG TAB PO SCH ×2 (10:04→22:08)
[2022-02-28] MEDS: QUEtiapine 100 MG TAB PO SCH ×2 (10:04→22:08)
[2022-02-28] MEDS: NITROFURANTOIN MONOHYD/M-CRYST 100 MG CAP PO SCH ×2 (10:04→22:07)
[2022-02-28] MEDS: POTASSIUM CHLORIDE ER 10 MEQ TAB PO SCH ×2 (10:04→22:08)
[2022-02-28] MEDS: AMIODARONE 200 MG TAB PO SCH (10:08)
[2022-02-28] MEDS: METOPROLOL TARTRATE 25 MG TAB PO SCH ×2 (11:06→22:09)
[2022-02-28] MEDS: INSULIN GLARGINE 100 UNITS/ML SUB-Q SCH (11:06)
[2022-02-28] MEDS: hydroCHLOROthiazide 25 MG TAB PO SCH (11:06)
[2022-02-28] MEDS: LISINOPRIL 10 MG TAB PO SCH (11:07)
[2022-02-28] MEDS: clonazePAM 0.5 MG TAB PO PRN (14:38)
[2022-02-28] MEDS: MELATONIN 5 MG TAB PO SCH (22:08)
[2022-03-01] MEDS: FUROSEMIDE 20 MG TAB PO SCH ×2 (06:43→17:23)
[2022-03-01] MEDS: LEVOTHYROXINE 100 MCG TAB PO SCH (06:43)
[2022-03-01] MEDS: ARFORMOTEROL 15 MCG/2 ML NEBU IH SCH ×2 (07:21→20:27)
[2022-03-01] MEDS: BUDESONIDE 0.5 MG/2 ML NEBU IH SCH ×2 (07:21→20:28)
[2022-03-01] MEDS: INSULIN LISPRO 100 UNIT/ML SUB-Q SCH ×4 (07:44→21:22)
--- NOTE | 2022-03-01 08:12 | Progress Note ---
Subjective Date of service: 03/01/22 Principal diagnosis: Major Depressive Disorder, r/o Neurocognitive Disorder Subjective Comment: The patient was seen today. She is sitting in the dayroom. She says she feels okay. She is forgetful and asks some questions several times. She is pleasant and polite. The patient says she's ready to go home. She says "I'm of my right mind. I want to go home and start back going to [employer]. I want to start my life again. She denies SI/HI or hallucinations. The patient scored 19 on the SLUMS Examination, which scores her in the Dementia range. 02/28 The patient was seen today. She says she feels okay. She denies SI/HI or hallucinations. But staff says the patient has been anxious, pacing and constantly obsessed with going home. 02/27 The patient was seen today. She is walking to the dayroom for breakfast. She she says she's doing well and slept well. She denies SI/HI or hallucinations of any kind. 02/26 The patient was seen today. She says she's doing well. She denies SI/HI or hallucinations of any kind. 02/25 The patient says seen today. She says she's doing okay and ready to go home. She is confused and thinks she lives with her daughter. Reports state she's resides in a local [place]. The patient says her appetite is good. She denies SI/HI or hallucinations of any kind. 02/24: The patient was seen this morning. She is calm, cooperative and oriented to self. She continues to present with some confusion, rates depression as 1/10. The patient denies any current suicidal/homicidal ideation and denies hallucinations. No changes made today. 02/23: The patient was seen this morning. She presents with restlessness and confusion. She continues to pace, requesting to be discharged. Start Klonopin 0.5mg po BID prn for anxiety REVIEW OF SYSTEMS Constitutional: Negative for weight loss ENT: Negative for stridor Respiratory: Negative for cough or hemoptysis All other systems reviewed and are negative MENTAL STATUS EXAMINATION General Appearance and Behavior: Age appropriate, wearing appropriate clothes, cooperative, polite with questioning, good eye contact Cooperation: cooperative Psychomotor Behavior: Psychomotor normal Mood: Okay Affect and affective range: congruent with stated mood Thought Process: circumstantial Thought Content: Reality oriented Speech: Normal volume, Regular rate and rhythm Suicidal Ideation: Denies Homicidal Ideation: Denies Hallucination: Sometimes Delusions: None elicited Impulse Control: Limited Insight and Judgment: Limited Memory: Intact Attention: attentive Orientation: Alert and oriented Diagnoses: Major depressive disorder Dementia with Behavioral Disturbance Treatment Plan: Patient admitted for inpatient psychiatric evaluation, medication adjustment and close monitoring The patient's behavior, mood, sleep and appetite will be closely monitored. Patient enrolled in individual and group therapeutic sessions and encouraged to attend. Patient provided with a safe and structured environment. Patient's physical health needs will be addressed by the Hospitalist. Hospitalist Consulted Labs including CBC, CMP, Lipid profile and Hemoglobin A1C levels ordered for baseline reference Social Assessment will be completed and the Medical Grade Shoemaker will work with patient and family to ensure a suitable and safe disposition Medication adjustment will be made as clinically indicated Continue home meds Usual Wellness Baptism/Preservation: - Start Trazodone 50 mg po QHS & 50 mg po QHS PRN between 10 PM & 2 AM for insomnia - Start Melatonin 5 mg po QHS to promote circadian rhythm The patient agreed on the treatment plan, understood the risk, benefit, alternative treatment, potential consequence of no treatment, and gave informed consent. Estimated days: [address] Goldman Medications and Allergies Allergies Allergy/AdvReac Type Severity Reaction Status Date / Time codeine Allergy Unknown Verified 02/21/22 22:24 Home Medications Medication Instructions Recorded Confirmed Last Taken Type Albuterol Sulfate [Proair 2 puff INHALATION UNK 02/22/22 02/22/22 Unknown History Respiclick] Amiodarone [Cordarone 200 MG TAB] 200 mg PO DAILY 02/22/22 02/22/22 Unknown History Apixaban [Eliquis] 5 mg PO BID 02/22/22 02/22/22 Unknown History Ascorbic Acid [Vitamin C] 500 mg PO QDAY 02/22/22 02/22/22 Unknown History Budesonide/Formoterol Fumarate 10.2 gm IH BID 02/22/22 02/22/22 Unknown History [Symbicort 160-4.5 Mcg Inhaler] Furosemide [Lasix] 20 mg PO BID 02/22/22 02/22/22 Unknown History Levothyroxine [Synthroid] 100 mcg PO QAM 02/22/22 02/22/22 Unknown History Melatonin [Melatonin 3MG TAB] 3 mg PO HS 02/22/22 02/22/22 Unknown History Metoprolol [Lopressor] 25 mg PO BID 02/22/22 02/22/22 Unknown History Nitroglycerin [Nitrostat] 0.4 mg SL Q5M PRN 02/22/22 02/22/22 Unknown History Omeprazole 40 mg PO DAILY 02/22/22 02/22/22 Unknown History Potassium Chloride [K-Dur] 10 meq PO BID 02/22/22 02/22/22 Unknown History QUEtiapine [SEROquel] 100 mg PO BID 02/22/22 02/22/22 Unknown History Quinapril HCl [Accupril] 20 mg PO DAILY 02/22/22 02/22/22 Unknown History Sertraline [Zoloft] 50 mg PO QDAY 02/22/22 02/22/22 Unknown History hydroCHLOROthiazide [HCTZ] 25 mg PO QDAY 02/22/22 02/22/22 Unknown History Active Meds: Active Medications Albuterol (Albuterol 2.5 Mg/3 Ml Nebu) 2.5 mg IH Q4HRT PRN PRN Reason: Shortness Of Breath Last Admin: 02/22/22 18:30 Dose: 2.5 mg Amiodarone HCl (Amiodarone 200 Mg Tab) 200 mg PO DAILY [facility] Last Admin: 02/28/22 10:08 Dose: 200 mg Apixaban (Apixaban 5 Mg Tab) 5 mg PO Q12HR [facility]; Protocol Last Admin: 02/28/22 22:08 Dose: 5 mg Arformoterol Tartrate (Arformoterol 15 Mcg/2 Ml Nebu) 15 mcg IH Q12HRT [facility] Last Admin: 03/01/22 07:21 Dose: Not Given Ascorbic Acid (Ascorbic Acid 500 Mg Tab) 500 mg PO QDAY [facility] Last Admin: 02/28/22 10:04 Dose: 500 mg Budesonide (Budesonide 0.5 Mg/2 Ml Nebu) 1 mg IH Q12HRT [facility] Last Admin: 03/01/22 07:21 Dose: Not Given Clonazepam (Clonazepam 0.5 Mg Tab) 0.5 mg PO BID PRN PRN Reason: Anxiety Last Admin: 02/28/22 14:38 Dose: 0.5 mg Furosemide (Furosemide 20 Mg Tab) 20 mg PO 0600,1800 [facility] Last Admin: 03/01/22 06:43 Dose: 20 mg Hydrochlorothiazide (Hydrochlorothiazide 25 Mg Tab) 25 mg PO QDAY [facility] Last Admin: 02/28/22 11:06 Dose: Not Given Insulin Glargine (Insulin Glargine 100 Units/Ml) 5 units SUB-Q QAMDIAB [facility] Last Admin: 02/28/22 11:06 Dose: Not Given Insulin Human Lispro (Insulin Lispro 100 Unit/Ml) 0 unit SUB-Q ACHS [facility]; Protocol Last Admin: 03/01/22 07:44 Dose: Not Given Levothyroxine Sodium (Levothyroxine 100 Mcg Tab) 100 mcg PO DAILY@0600 [facility] Last Admin: 03/01/22 06:43 Dose: 100 mcg Lisinopril (Lisinopril 10 Mg Tab) 10 mg PO QDAY [facility] Last Admin: 02/28/22 11:07 Dose: Not Given Melatonin (Melatonin 5 Mg Tab) 5 mg PO QHS [facility] Last Admin: 02/28/22 22:08 Dose: 5 mg Metoprolol Tartrate (Metoprolol Tartrate 25 Mg Tab) 25 mg PO BID [facility] Last Admin: 02/28/22 22:09 Dose: Not Given Nitrofurantoin Macrocrystals (Nitrofurantoin Monohyd/M-Cryst 100 Mg Cap) 100 mg PO Q12HR [facility] Stop: 03/01/22 12:59 Last Admin: 02/28/22 22:07 Dose: 100 mg Nitroglycerin (Nitroglycerin 0.4 Mg Tab Subl) 0.4 mg SL Q5M PRN PRN Reason: Chest Pain Pantoprazole Sodium (Pantoprazole 40 Mg Tab) 40 mg PO DAILY [facility] Last Admin: 02/28/22 10:04 Dose: 40 mg Potassium Chloride (Potassium Chloride Er 10 Meq Tab) 10 meq PO BID [facility] Last Admin: 02/28/22 22:08 Dose: 10 meq Quetiapine Fumarate (Quetiapine 100 Mg Tab) 100 mg PO BID [facility] Last Admin: 02/28/22 22:08 Dose: 100 mg Sertraline HCl (Sertraline 50 Mg Tab) 50 mg PO QDAY [facility] Last Admin: 02/28/22 10:04 Dose: 50 mg Results - Results Labs/Vitals: Laboratory Last Values WBC 5.6 K/mm3 (4.5-11.0) 02/24/22 10:27 RBC 3.36 M/mm3 (3.65-5.03) L 02/24/22 10:27 Hgb 9.8 gm/dl (10.1-14.3) L 02/24/22 10:27 Hct 29.7 % (30.3-42.9) L 02/24/22 10: MCV 89 fl (79-97) 02/24/22 10: MCH 29 pg (28-32) 02/24/22 10: MCHC 33 % (30-34) 02/24/22 10: RDW 16.2 % (13.2-15.2) H 02/24/22 10: Plt Count 252 K/mm3 (140-440) 02/24/22 10: Lymph % (Auto) 13.9 % (13.4-35.0) 02/24/22 10:27 [place] % (Auto) 8.1 % (0.0-7.3) H 02/24/22 10:27 Eos % (Auto) 6.2 % (0.0-4.3) H 02/24/22 10:27 Baso % (Auto) 1.0 % (0.0-1.8) 02/24/22: Lymph # (Auto) 0.8 K/mm3 (1.2-5.4) L 02/24/22 10: [place] # (Auto) 0.5 K/mm3 (0.0-0.8) 02/24/22 10:27 Eos # (Auto) 0.3 K/mm3 (0.0-0.4) 02/24/22 10:27 Baso # (Auto) 0.1 K/mm3 (0.0-0.1) 02/24/22 10:27 Seg Neutrophils % 70.8 % (40.0-70.0) H 02/24/22 10: Seg Neutrophils # 3.9 K/mm3 (1.8-7.7) 02/24/22 10:27 Sodium 138 mmol/L (137-145) 02/24/22 10:27 Potassium 4.0 mmol/L (3.6-5.0) 02/24/22 10:27 Chloride 101.7 mmol/L (98-107) 02/24/22 10:27 Carbon Dioxide 26 mmol/L (22-30) 02/24/22 10:27 Anion Gap 14 mmol/L 02/24/22 10:27 BUN 12 mg/dL (7-17) 02/24/22 10:27 Creatinine 0.6 mg/dL (0.6-1.2) 02/24/22 10:27 Estimated GFR > 60 ml/min 02/24/22 10:27 BUN/Creatinine Ratio 20 % 02/24/22 10:27 Glucose 202 mg/dL (65-100) H 02/24/22 10:27 POC Glucose 78 mg/dL (70-105) 03/01/22 07:22 Hemoglobin A1c 7.2 % (4-6) H 02/23/22 04:58 Calcium 8.6 mg/dL (8.4-10.2) 02/24/22 10:27 Total Bilirubin 0.20 mg/dL (0.1-1.2) 02/23/22 04:58 AST 12 units/L (5-40) 02/23/22 04:58 ALT 13 units/L (7-56) 02/23/22 04:58 Alkaline Phosphatase 112 units/L (35-129) 02/23/22 04:58 Total Protein 5.8 g/dL (6.3-8.2) L 02/23/22 04:58 Albumin 2.9 g/dL (3.9-5) L 02/23/22 04:58 Albumin/Globulin Ratio 1.0 % 02/23/22 04:58 Triglycerides 52 mg/dL (2-149) 02/23/22 04:58 Cholesterol 129 mg/dL (50-199) 02/23/22 04:58 LDL Cholesterol Direct 60 mg/dL (50-130) 02/23/22 04:58 HDL Cholesterol 65 mg/dL (40-59) H 02/23/22 04:58 Cholesterol/HDL Ratio 1.98 % 02/23/22 04:58 TSH 0.975 mlU/mL (0.270-4.200) 02/23/22 04:58 Urine Color Yellow (Yellow) 02/22/22 00:52 Urine Turbidity Clear (Clear) 02/22/22 00:52 Urine pH 5.0 (5.0-7.0) 02/22/22 00:52 Ur Specific [place] 1.017 (1.003-1.030) 02/22/22 00:52 Urine Protein <15 mg/dl mg/dL (Negative) 02/22/22 00:52 Urine Glucose (UA) Neg mg/dL (Negative) 02/22/22 00:52 Urine Ketones Neg mg/dL (Negative) 02/22/22 00:52 Urine Blood Neg (Negative) 02/22/22 00:52 Urine Nitrite Neg (Negative) 02/22/22 00:52 Urine Bilirubin Neg (Negative) 02/22/22 00:52 Urine Urobilinogen 2.0 mg/dL (<2.0) 02/22/22 00:52 Ur Leukocyte Esterase Sm (Negative) 02/22/22 00:52 Urine WBC (Auto) 17.0 /HPF (0.0-6.0) H 02/22/22 00:52 Urine RBC (Auto) 2.0 /HPF (0.0-6.0) 02/22/22 00:52 U Epithel Cells (Auto) 1.0 /HPF (0-13.0) 02/22/22 00:52 Urine Mucus Few /HPF 02/22/22 00:52 Last Vital Signs Temp 98.2 F 02/28/22 21:10 Pulse 60 02/28/22 21:10 Resp 20 02/28/22 21:10 BP 110/60 02/28/22 22:09 Pulse Ox 100 02/28/22 21:10
[2022-03-01] MEDS: QUEtiapine 100 MG TAB PO SCH ×2 (10:02→21:24)
[2022-03-01] MEDS: ASCORBIC ACID 500 MG TAB PO SCH (10:02)
[2022-03-01] MEDS: NITROFURANTOIN MONOHYD/M-CRYST 100 MG CAP PO SCH (10:02)
[2022-03-01] MEDS: APIXABAN 5 MG TAB PO SCH ×2 (10:02→21:22)
[2022-03-01] MEDS: AMIODARONE 200 MG TAB PO SCH (10:02)
[2022-03-01] MEDS: POTASSIUM CHLORIDE ER 10 MEQ TAB PO SCH ×2 (10:02→21:22)
[2022-03-01] MEDS: SERTRALINE 50 MG TAB PO SCH (10:02)
[2022-03-01] MEDS: PANTOPRAZOLE 40 MG TAB PO SCH (10:02)
[2022-03-01] MEDS: INSULIN GLARGINE 100 UNITS/ML SUB-Q SCH (10:15)
[2022-03-01] MEDS: METOPROLOL TARTRATE 25 MG TAB PO SCH ×2 (10:16→21:23)
[2022-03-01] MEDS: hydroCHLOROthiazide 25 MG TAB PO SCH (10:16)
[2022-03-01] MEDS: LISINOPRIL 10 MG TAB PO SCH (10:16)
--- NOTE | 2022-03-01 20:55 | Progress Note ---
Assessment and Plan - Patient Problems (1) Vascular dementia with behavioral disturbance Current Visit: Yes Status: Acute Plan to address problem: Verbal prompting, verbal redirection, benzodiazepine therapy as clinically indicated. (2) Cerebral atherosclerosis Current Visit: Yes Status: Acute Plan to address problem: Antiplatelet therapy as clinically indicated, supportive care, risk factor reduction. (3) MDD (major depressive disorder) Current Visit: Yes Status: Acute Plan to address problem: Continue medical management, supportive care. (4) LAI (generalized anxiety disorder) Current Visit: Yes Status: Acute Plan to address problem: Benzodiazepine therapy as clinically indicated. Supportive care. Behavior change counseling. (5) DM2 (diabetes mellitus, type 2) Current Visit: Yes Status: Acute Plan to address problem: Consistent carbohydrate diet, continue medical management, supportive care. Accu-Chek. (6) Hypertension Current Visit: Yes Status: Acute Qualifiers: Hypertension type: primary hypertension Qualified Code(s): I10 - Essential (primary) hypertension Plan to address problem: Monitor blood pressure every shift, continue medical management. (7) UTI (urinary tract infection) Current Visit: Yes Status: Acute Plan to address problem: Full course antibiotic therapy. (8) A-fib Current Visit: Yes Status: Chronic Plan to address problem: Continue medical management, supportive care. Continue therapeutic anticoagulation. (9) Hypothyroidism Current Visit: Yes Status: Acute Plan to address problem: Continue Synthroid therapy, supportive care. (10) Advance care planning Current Visit: Yes Status: Acute Plan to address problem: Disease education done, care plan discussed, diagnoses discussed, prognosis discussed, patient is full code. Patient knowledges understanding and agreement with care plan, +30 minutes. (11) Preventative health care Current Visit: Yes Status: Acute Plan to address problem: Patient counseled regarding home safety, risk factor reduction, patient instructed to follow-up with primary care physician for all age and risk factor appropriate screening test. +30 minutes. History Interval history: 87 YO Female with Vascular Dementia with Behavioral Disturbance, Cerebral Atherosclerosis, Atrial Fib on therapeutic anticoagulation with Eliquis, Hypothyroidism, DM, HTN, MDD, LAI, UTI on full coarse antibiotic therapy admitted to [facility] for psychiatric stabilization. Consult placed by Dr. Telles for medical management. Pt seen and evaluated in the recreation room. Pt resting comfortably today. Patient confused with tangential thinking but appears to be at baseline level of cognition and function. No reported nursing events. Hospitalist Physical - Constitutional Vitals: Temp Pulse Resp BP Pulse Ox 98.8 F 68 18 119/50 100 03/01/22 08:45 03/01/22 20:29 03/01/22 20:29 03/01/22 10:16 03/01/22 08:45 General appearance: Present: no acute distress, cachectic - EENT Eyes: Present: PERRL ENT: hearing decreased - Neck Neck: Present: supple - Respiratory Respiratory effort: normal Respiratory: bilateral: CTA - Cardiovascular Rhythm: irregularly irregular - Extremities Extremities: no ischemia Peripheral Pulses: within normal limits - Abdominal General gastrointestinal: soft, non-tender, non-distended - Integumentary Integumentary: Present: clear, dry - Psychiatric Psychiatric: cooperative - Neurologic Neurologic: CNII-XII intact Results - Labs CBC & Chem 7: 02/24/22 10:27 02/24/22 10:27 Labs: Laboratory Last Values WBC 5.6 K/mm3 (4.5-11.0) 02/24/22 10:27 RBC 3.36 M/mm3 (3.65-5.03) L 02/24/22 10:27 Hgb 9.8 gm/dl (10.1-14.3) L 02/24/22 10:27 Hct 29.7 % (30.3-42.9) L 02/24/22 10:27 MCV 89 fl (79-97) 02/24/22 10:27 MCH 29 pg (28-32) 02/24/22 10:27 MCHC 33 % (30-34) 02/24/22 10:27 RDW 16.2 % (13.2-15.2) H 02/24/22 10:27 Plt Count 252 K/mm3 (140-440) 02/24/22 10:27 Lymph % (Auto) 13.9 % (13.4-35.0) 02/24/22 10:27 [place] % (Auto) 8.1 % (0.0-7.3) H 02/24/22 10:27 Eos % (Auto) 6.2 % (0.0-4.3) H 02/24/22 10:27 Baso % (Auto) 1.0 % (0.0-1.8) 02/24/22 10:27 Lymph # (Auto) 0.8 K/mm3 (1.2-5.4) L 02/24/22 10:27 [place] # (Auto) 0.5 K/mm3 (0.0-0.8) 02/24/22 10:27 Eos # (Auto) 0.3 K/mm3 (0.0-0.4) 02/24/22 10:27 Baso # (Auto) 0.1 K/mm3 (0.0-0.1) 02/24/22 10:27 Seg Neutrophils % 70.8 % (40.0-70.0) H 02/24/22 10:27 Seg Neutrophils # 3.9 K/mm3 (1.8-7.7) 02/24/22 10:27 Sodium 138 mmol/L (137-145) 02/24/22 10:27 Potassium 4.0 mmol/L (3.6-5.0) 02/24/22 10:27 Chloride 101.7 mmol/L (98-107) 02/24/22 10:27 Carbon Dioxide 26 mmol/L (22-30) 02/24/22 10:27 Anion Gap 14 mmol/L 02/24/22 10:27 BUN 12 mg/dL (7-17) 02/24/22 10:27 Creatinine 0.6 mg/dL (0.6-1.2) 02/24/22 10:27 Estimated GFR > 60 ml/min 02/24/22 10:27 BUN/Creatinine Ratio 20 % 02/24/22 10:27 Glucose 202 mg/dL (65-100) H 02/24/22 10:27 POC Glucose 125 mg/dL (70-105) H 03/01/22 19:19 Hemoglobin A1c 7.2 % (4-6) H 02/23/22 04:58 Calcium 8.6 mg/dL (8.4-10.2) 02/24/22 10:27 Total Bilirubin 0.20 mg/dL (0.1-1.2) 02/23/22 04:58 AST 12 units/L (5-40) 02/23/22 04:58 ALT 13 units/L (7-56) 02/23/22 04:58 Alkaline Phosphatase 112 units/L (35-129) 02/23/22 04:58 Total Protein 5.8 g/dL (6.3-8.2) L 02/23/22 04:58 Albumin 2.9 g/dL (3.9-5) L 02/23/22 04:58 Albumin/Globulin Ratio 1.0 % 02/23/22 04:58 Triglycerides 52 mg/dL (2-149) 02/23/22 04:58 Cholesterol 129 mg/dL (50-199) 02/23/22 04:58 LDL Cholesterol Direct 60 mg/dL (50-130) 02/23/22 04:58 HDL Cholesterol 65 mg/dL (40-59) H 02/23/22 04:58 Cholesterol/HDL Ratio 1.98 % 02/23/22 04:58 TSH 0.975 mlU/mL (0.270-4.200) 02/23/22 04:58 Urine Color Yellow (Yellow) 02/22/22 00:52 Urine Turbidity Clear (Clear) 02/22/22 00:52 Urine pH 5.0 (5.0-7.0) 02/22/22 00:52 Ur Specific [place] 1.017 (1.003-1.030) 02/22/22 00:52 Urine Protein <15 mg/dl mg/dL (Negative) 02/22/22 00:52 Urine Glucose (UA) Neg mg/dL (Negative) 02/22/22 00:52 Urine Ketones Neg mg/dL (Negative) 02/22/22 00:52 Urine Blood Neg (Negative) 02/22/22 00:52 Urine Nitrite Neg (Negative) 02/22/22 00:52 Urine Bilirubin Neg (Negative) 02/22/22 00:52 Urine Urobilinogen 2.0 mg/dL (<2.0) 02/22/22 00:52 Ur Leukocyte Esterase Sm (Negative) 02/22/22 00:52 Urine WBC (Auto) 17.0 /HPF (0.0-6.0) H 02/22/22 00:52 Urine RBC (Auto) 2.0 /HPF (0.0-6.0) 02/22/22 00:52 U Epithel Cells (Auto) 1.0 /HPF (0-13.0) 02/22/22 00:52 Urine Mucus Few /HPF 02/22/22 00:52 [place]/IV: Voiding Method Toilet Active Medications - Current Medications Current Medications: Generic Name Dose Route Start Last Admin Trade Name Freq PRN Reason Stop Dose Admin Albuterol 2.5 mg 02/22/22 12:00 02/22/22 18:30 Albuterol 2.5 Mg/3 Ml Nebu IH 2.5 mg Q4HRT PRN Administration Shortness Of Breath Amiodarone HCl 200 mg 02/22/22 10:00 03/01/22 10:02 Amiodarone 200 Mg Tab PO 200 mg DAILY YANA Administration Apixaban 5 mg 02/22/22 11:00 03/01/22 10:02 Apixaban 5 Mg Tab PO 5 mg Q12HR YANA Administration Protocol Arformoterol Tartrate 15 mcg 02/22/22 12:00 03/01/22 20:27 Arformoterol 15 Mcg/2 Ml Nebu IH 15 mcg Q12HRT YANA Administration Ascorbic Acid 500 mg 02/22/22 10:00 03/01/22 10:02 Ascorbic Acid 500 Mg Tab PO 500 mg QDAY YANA Administration Budesonide 1 mg 02/22/22 12:00 03/01/22 20:28 Budesonide 0.5 Mg/2 Ml Nebu IH 1 mg Q12HRT YANA Administration Clonazepam 0.5 mg 02/23/22 10:48 02/28/22 14:38 Clonazepam 0.5 Mg Tab PO 0.5 mg BID PRN Administration Anxiety Furosemide 20 mg 02/22/22 10:00 03/01/22 17:23 Furosemide 20 Mg Tab PO Not Given 0600,1800 [facility] Hydrochlorothiazide 25 mg 02/22/22 10:00 03/01/22 10:16 Hydrochlorothiazide 25 Mg Tab PO Not Given QDAY [facility] Insulin Glargine 5 units 02/24/22 13:00 03/01/22 10:15 Insulin Glargine 100 Units/Ml SUB-Q Not Given QAMDIAB [facility] Insulin Human Lispro 0 unit 02/22/22 11:30 03/01/22 17:18 Insulin Lispro 100 Unit/Ml SUB-Q Not Given ACHS [facility] Protocol Levothyroxine Sodium 100 mcg 02/22/22 10:00 03/01/22 06:43 Levothyroxine 100 Mcg Tab PO 100 mcg DAILY@0600 [facility] Administration Lisinopril 10 mg 02/22/22 11:00 03/01/22 10:16 Lisinopril 10 Mg Tab PO Not Given QDAY YANA Melatonin 5 mg 02/22/22 01:00 02/28/22 22:08 Melatonin 5 Mg Tab PO 5 mg QHS YANA Administration Metoprolol Tartrate 25 mg 02/22/22 10:00 03/01/22 10:16 Metoprolol Tartrate 25 Mg Tab PO Not Given BID YANA Nitroglycerin 0.4 mg 02/22/22 09:30 Nitroglycerin 0.4 Mg Tab Subl SL Q5M PRN Chest Pain Pantoprazole Sodium 40 mg 02/22/22 11:00 03/01/22 10:02 Pantoprazole 40 Mg Tab PO 40 mg DAILY YANA Administration Potassium Chloride 10 meq 02/22/22 11:30 03/01/22 10:02 Potassium Chloride Er 10 Meq Tab PO 10 meq BID YANA Administration Quetiapine Fumarate 100 mg 02/22/22 10:00 03/01/22 10:02 Quetiapine 100 Mg Tab PO 100 mg BID YANA Administration Sertraline HCl 50 mg 02/22/22 10:00 03/01/22 10:02 Sertraline 50 Mg Tab PO 50 mg QDAY YANA Administration Nutrition/Malnutrition Assess - Dietary Evaluation Nutrition/Malnutrition Findings: Nutrition Notes Start: 02/22/22 15:25 Freq: Status: Active Protocol: Document 02/28/22 11:51 GENE (Rec: 02/28/22 11:54 GENE [id number]) Nutrition Notes Need for Assessment generated from: LOS Initial or Follow up Brief Note Current Diet Cardiac/Consistent CHO Height 5 ft 4.57 in Weight 54.7 kg [place] Body Weight (kg) 55.84 BMI 20.3 Weight Status Underweight Subjective/Other Information Pt screened for LOS. She has consumed 80% of meals since admission. Percent of energy/protein needs met: 100% energy and pro Minimum of two criteria No Is patient on ventilator? No Is Patient Ambulatory and/or Out of Bed Yes REE-([facility]-ambulatory/OOB) [ [id number] [id number]] Calculation Used for Recommendations [facility] Additional Notes Pro needs 1.2-1.5g/k-82g/ day Fluid needs 1ml/kcal Nutrition Intervention Revisit per MD consult or patient Sign Off request:
--- NOTE | 2022-03-01 20:57 | Progress Note ---
Assessment and Plan - Patient Problems (1) Vascular dementia with behavioral disturbance Current Visit: Yes Status: Acute Plan to address problem: Verbal prompting, verbal redirection, benzodiazepine therapy as clinically indicated. (2) Cerebral atherosclerosis Current Visit: Yes Status: Acute Plan to address problem: Antiplatelet therapy as clinically indicated, supportive care, risk factor reduction. (3) MDD (major depressive disorder) Current Visit: Yes Status: Acute Plan to address problem: Continue medical management, supportive care. (4) LAI (generalized anxiety disorder) Current Visit: Yes Status: Acute Plan to address problem: Benzodiazepine therapy as clinically indicated. Supportive care. Behavior change counseling. (5) DM2 (diabetes mellitus, type 2) Current Visit: Yes Status: Acute Plan to address problem: Consistent carbohydrate diet, continue medical management, supportive care. Accu-Chek. (6) Hypertension Current Visit: Yes Status: Acute Qualifiers: Hypertension type: primary hypertension Qualified Code(s): I10 - Essential (primary) hypertension Plan to address problem: Monitor blood pressure every shift, continue medical management. (7) UTI (urinary tract infection) Current Visit: Yes Status: Acute Plan to address problem: Full course antibiotic therapy completed today (8) A-fib Current Visit: Yes Status: Chronic Plan to address problem: Continue medical management, supportive care. Continue therapeutic anticoagulation. (9) Hypothyroidism Current Visit: Yes Status: Acute Plan to address problem: Continue Synthroid therapy, supportive care. (10) Advance care planning Current Visit: Yes Status: Acute Plan to address problem: Disease education done, care plan discussed, diagnoses discussed, prognosis discussed, patient is full code. Patient knowledges understanding and agreement with care plan, +30 minutes. (11) Preventative health care Current Visit: Yes Status: Acute Plan to address problem: Patient counseled regarding home safety, risk factor reduction, patient instructed to follow-up with primary care physician for all age and risk factor appropriate screening test. +30 minutes. History Interval history: 87 YO Female with Vascular Dementia with Behavioral Disturbance, Cerebral Atherosclerosis, Atrial Fib on therapeutic anticoagulation with Eliquis, Hypothyroidism, DM, HTN, MDD, LAI, UTI on full coarse antibiotic therapy admi tted to [facility] for psychiatric stabilization. Consult placed by Dr. Telles for medical management. Pt seen and evaluated in the recreation room. Pt resting comfortably today. Patient confused with tangential thinking but appears to be at baseline level of cognition and function. No reported nursing events. Hospitalist Physical - Constitutional Vitals: Temp Pulse Resp BP Pulse Ox 98.8 F 68 18 119/50 100 03/01/22 08:45 03/01/22 20:29 03/01/22 20:29 03/01/22 10:16 03/01/22 08:45 General appearance: Present: no acute distress, cachectic - EENT Eyes: Present: PERRL ENT: hearing decreased - Neck Neck: Present: supple - Respiratory Respiratory effort: normal Respiratory: bilateral: CTA - Cardiovascular Rhythm: irregularly irregular - Extremities Extremities: no ischemia Peripheral Pulses: within normal limits - Abdominal General gastrointestinal: soft, non-tender, non-distended - Integumentary Integumentary: Present: clear, dry - Psychiatric Psychiatric: cooperative - Neurologic Neurologic: CNII-XII intact Results - Labs CBC & Chem 7: 02/24/22 10:27 02/24/22 10:27 Labs: Laboratory Last Values WBC 5.6 K/mm3 (4.5-11.0) 02/24/22 10:27 RBC 3.36 M/mm3 (3.65-5.03) L 02/24/22 10:27 Hgb 9.8 gm/dl (10.1-14.3) L 02/24/22 10:27 Hct 29.7 % (30.3-42.9) L 02/24/22 10:27 MCV 89 fl (79-97) 02/24/22 10:27 MCH 29 pg (28-32) 02/24/22 10:27 MCHC 33 % (30-34) 02/24/22 10:27 RDW 16.2 % (13.2-15.2) H 02/24/22 10:27 Plt Count 252 K/mm3 (140-440) 02/24/22 10:27 Lymph % (Auto) 13.9 % (13.4-35.0) 02/24/22 10:27 [place] % (Auto) 8.1 % (0.0-7.3) H 02/24/22 10:27 Eos % (Auto) 6.2 % (0.0-4.3) H 02/24/22 10:27 Baso % (Auto) 1.0 % (0.0-1.8) 02/24/22 10:27 Lymph # (Auto) 0.8 K/mm3 (1.2-5.4) L 02/24/22 10:27 [place] # (Auto) 0.5 K/mm3 (0.0-0.8) 02/24/22 10:27 Eos # (Auto) 0.3 K/mm3 (0.0-0.4) 02/24/22 10:27 Baso # (Auto) 0.1 K/mm3 (0.0-0.1) 02/24/22 10:27 Seg Neutrophils % 70.8 % (40.0-70.0) H 02/24/22 10:27 Seg Neutrophils # 3.9 K/mm3 (1.8-7.7) 02/24/22 10:27 Sodium 138 mmol/L (137-145) 02/24/22 10:27 Potassium 4.0 mmol/L (3.6-5.0) 02/24/22 10:27 Chloride 101.7 mmol/L (98-107) 02/24/22 10:27 Carbon Dioxide 26 mmol/L (22-30) 02/24/22 10:27 Anion Gap 14 mmol/L 02/24/22 10:27 BUN 12 mg/dL (7-17) 02/24/22 10:27 Creatinine 0.6 mg/dL (0.6-1.2) 02/24/22 10:27 Estimated GFR > 60 ml/min 02/24/22 10:27 BUN/Creatinine Ratio 20 % 02/24/22 10:27 Glucose 202 mg/dL (65-100) H 02/24/22 10:27 POC Glucose 125 mg/dL (70-105) H 03/01/22 19:19 Hemoglobin A1c 7.2 % (4-6) H 02/23/22 04:58 Calcium 8.6 mg/dL (8.4-10.2) 02/24/22 10:27 Total Bilirubin 0.20 mg/dL (0.1-1.2) 02/23/22 04:58 AST 12 units/L (5-40) 02/23/22 04:58 ALT 13 units/L (7-56) 02/23/22 04:58 Alkaline Phosphatase 112 units/L (35-129) 02/23/22 04:58 Total Protein 5.8 g/dL (6.3-8.2) L 02/23/22 04:58 Albumin 2.9 g/dL (3.9-5) L 02/23/22 04:58 Albumin/Globulin Ratio 1.0 % 02/23/22 04:58 Triglycerides 52 mg/dL (2-149) 02/23/22 04:58 Cholesterol 129 mg/dL (50-199) 02/23/22 04:58 LDL Cholesterol Direct 60 mg/dL (50-130) 02/23/22 04:58 HDL Cholesterol 65 mg/dL (40-59) H 02/23/22 04:58 Cholesterol/HDL Ratio 1.98 % 02/23/22 04:58 TSH 0.975 mlU/mL (0.270-4.200) 02/23/22 04:58 Urine Color Yellow (Yellow) 02/22/22 00:52 Urine Turbidity Clear (Clear) 02/22/22 00:52 Urine pH 5.0 (5.0-7.0) 02/22/22 00:52 Ur Specific [place] 1.017 (1.003-1.030) 02/22/22 00:52 Urine Protein <15 mg/dl mg/dL (Negative) 02/22/22 00:52 Urine Glucose (UA) Neg mg/dL (Negative) 02/22/22 00:52 Urine Ketones Neg mg/dL (Negative) 02/22/22 00:52 Urine Blood Neg (Negative) 02/22/22 00:52 Urine Nitrite Neg (Negative) 02/22/22 00:52 Urine Bilirubin Neg (Negative) 02/22/22 00:52 Urine Urobilinogen 2.0 mg/dL (<2.0) 02/22/22 00:52 Ur Leukocyte Esterase Sm (Negative) 02/22/22 00:52 Urine WBC (Auto) 17.0 /HPF (0.0-6.0) H 02/22/22 00:52 Urine RBC (Auto) 2.0 /HPF (0.0-6.0) 02/22/22 00:52 U Epithel Cells (Auto) 1.0 /HPF (0-13.0) 02/22/22 00:52 Urine Mucus Few /HPF 02/22/22 00:52 [place]/IV: Voiding Method Toilet Active Medications - Current Medications Current Medications: Generic Name Dose Route Start Last Admin Trade Name Freq PRN Reason Stop Dose Admin Albuterol 2.5 mg 02/22/22 12:00 02/22/22 18:30 Albuterol 2.5 Mg/3 Ml Nebu IH 2.5 mg Q4HRT PRN Administration Shortness Of Breath Amiodarone HCl 200 mg 02/22/22 10:00 03/01/22 10:02 Amiodarone 200 Mg Tab PO 200 mg DAILY YANA Administration Apixaban 5 mg 02/22/22 11:00 03/01/22 10:02 Apixaban 5 Mg Tab PO 5 mg Q12HR YANA Administration Protocol Arformoterol Tartrate 15 mcg 02/22/22 12:00 03/01/22 20:27 Arformoterol 15 Mcg/2 Ml Nebu IH 15 mcg Q12HRT YANA Administration Ascorbic Acid 500 mg 02/22/22 10:00 03/01/22 10:02 Ascorbic Acid 500 Mg Tab PO 500 mg QDAY YANA Administration Budesonide 1 mg 02/22/22 12:00 03/01/22 20:28 Budesonide 0.5 Mg/2 Ml Nebu IH 1 mg Q12HRT YANA Administration Clonazepam 0.5 mg 02/23/22 10:48 02/28/22 14:38 Clonazepam 0.5 Mg Tab PO 0.5 mg BID PRN Administration Anxiety Furosemide 20 mg 02/22/22 10:00 03/01/22 17:23 Furosemide 20 Mg Tab PO Not Given 0600,1800 [facility] Hydrochlorothiazide 25 mg 02/22/22 10:00 03/01/22 10:16 Hydrochlorothiazide 25 Mg Tab PO Not Given QDAY [facility] Insulin Glargine 5 units 02/24/22 13:00 03/01/22 10:15 Insulin Glargine 100 Units/Ml SUB-Q Not Given QAMDIAB [facility] Insulin Human Lispro 0 unit 02/22/22 11:30 03/01/22 17:18 Insulin Lispro 100 Unit/Ml SUB-Q Not Given ACHS [facility] Protocol Levothyroxine Sodium 100 mcg 02/22/22 10:00 03/01/22 06:43 Levothyroxine 100 Mcg Tab PO 100 mcg DAILY@0600 [facility] Administration Lisinopril 10 mg 02/22/22 11:00 03/01/22 10:16 Lisinopril 10 Mg Tab PO Not Given QDAY YANA Melatonin 5 mg 02/22/22 01:00 02/28/22 22:08 Melatonin 5 Mg Tab PO 5 mg QHS YANA Administration Metoprolol Tartrate 25 mg 02/22/22 10:00 03/01/22 10:16 Metoprolol Tartrate 25 Mg Tab PO Not Given BID YANA Nitroglycerin 0.4 mg 02/22/22 09:30 Nitroglycerin 0.4 Mg Tab Subl SL Q5M PRN Chest Pain Pantoprazole Sodium 40 mg 02/22/22 11:00 03/01/22 10:02 Pantoprazole 40 Mg Tab PO 40 mg DAILY YANA Administration Potassium Chloride 10 meq 02/22/22 11:30 03/01/22 10:02 Potassium Chloride Er 10 Meq Tab PO 10 meq BID YANA Administration Quetiapine Fumarate 100 mg 02/22/22 10:00 03/01/22 10:02 Quetiapine 100 Mg Tab PO 100 mg BID YANA Administration Sertraline HCl 50 mg 02/22/22 10:00 03/01/22 10:02 Sertraline 50 Mg Tab PO 50 mg QDAY YANA Administration Nutrition/Malnutrition Assess - Dietary Evaluation Nutrition/Malnutrition Findings: Nutrition Notes Start: 02/22/22 15:25 Freq: Status: Active Protocol: Document 02/28/22 11:51 GENE (Rec: 02/28/22 11:54 GENE [id number]) Nutrition Notes Need for Assessment generated from: LOS Initial or Follow up Brief Note Current Diet Cardiac/Consistent CHO Height 5 ft 4.57 in Weight 54.7 kg [place] Body Weight (kg) 55.84 BMI 20.3 Weight Status Underweight Subjective/Other Information Pt screened for LOS. She has consumed 80% of meals since admission. Percent of energy/protein needs met: 100% energy and pro Minimum of two criteria No Is patient on ventilator? No Is Patient Ambulatory and/or Out of Bed Yes REE-([facility] Jeor-ambulatory/OOB) [ [id number] [id number]] Calculation [facility] Additional Notes Pro needs 1.2-1.5g/k-82g/ day Fluid needs 1ml/kcal Nutrition Intervention Revisit per MD consult or patient Sign Off request:
[2022-03-01] MEDS: MELATONIN 5 MG TAB PO SCH (21:23)
[2022-03-01] MEDS: clonazePAM 0.5 MG TAB PO PRN (21:24)
[2022-03-02] MEDS: FUROSEMIDE 20 MG TAB PO SCH ×2 (06:19→17:19)
[2022-03-02] MEDS: LEVOTHYROXINE 100 MCG TAB PO SCH (06:19)
[2022-03-02] MEDS: BUDESONIDE 0.5 MG/2 ML NEBU IH SCH (08:24)
[2022-03-02] MEDS: INSULIN GLARGINE 100 UNITS/ML SUB-Q SCH (08:26)
[2022-03-02] MEDS: ARFORMOTEROL 15 MCG/2 ML NEBU IH SCH (08:26)
[2022-03-02] MEDS: INSULIN LISPRO 100 UNIT/ML SUB-Q SCH ×4 (08:31→21:24)
--- NOTE | 2022-03-02 11:36 | XRay Report ---
CHEST 1 VIEW 03/02/2022 10:20 AM INDICATION / CLINICAL INFORMATION: r/o TB. COMPARISON: One view of the chest from 02/25/2022. FINDINGS: SUPPORT DEVICES: None. HEART / MEDIASTINUM: Stable. LUNGS / PLEURA: Previously seen left mid/lower lung opacities have improved. There is probable left b asilar atelectasis versus scarring. The lungs are otherwise clear. No significant pleural effusion. N o pneumothorax. ADDITIONAL FINDINGS: No significant additional findings. IMPRESSION: 1. No radiographic findings concerning for tuberculosis infection. 2. Additional findings as above. Signer Name: Adan Rinaldi MD Signed: 03/02/2022 11:32 AM Workstation Name: [employer]
[2022-03-02] MEDS: METOPROLOL TARTRATE 25 MG TAB PO SCH ×2 (11:38→21:24)
[2022-03-02] MEDS: APIXABAN 5 MG TAB PO SCH ×2 (11:39→21:23)
[2022-03-02] MEDS: SERTRALINE 50 MG TAB PO SCH (11:39)
[2022-03-02] MEDS: ASCORBIC ACID 500 MG TAB PO SCH (11:39)
[2022-03-02] MEDS: PANTOPRAZOLE 40 MG TAB PO SCH (11:39)
[2022-03-02] MEDS: AMIODARONE 200 MG TAB PO SCH (11:39)
[2022-03-02] MEDS: QUEtiapine 100 MG TAB PO SCH ×2 (11:39→21:23)
[2022-03-02] MEDS: hydroCHLOROthiazide 25 MG TAB PO SCH (11:40)
[2022-03-02] MEDS: POTASSIUM CHLORIDE ER 10 MEQ TAB PO SCH ×2 (11:40→21:23)
[2022-03-02] MEDS: LISINOPRIL 10 MG TAB PO SCH (11:41)
[2022-03-02] MEDS: clonazePAM 0.5 MG TAB PO PRN ×2 (14:16→21:24)
--- NOTE | 2022-03-02 15:03 | Progress Note ---
Subjective Date of service: 03/02/22 Principal diagnosis: Major Depressive Disorder, r/o Neurocognitive Disorder Subjective Comment: The patient was seen today. She denies SI/HI or hallucinations of any kind. The patient was seen today. She is sitting in the dayroom. She says she feels okay. She is forgetful and asks some questions several times. She is pleasant and polite. The patient says she's ready to go home. She says "I'm of my right mind. I want to go home and start back going to worship. I want to start my life again. She denies SI/HI or hallucinations. The patient scored 19 on the SLUMS Examination, which scores her in the Dementia range. 02/28 The patient was seen today. She says she feels okay. She denies SI/HI or hallucinations. But staff says the patient has been anxious, pacing and constantly obsessed with going home. 02/27 The patient was seen today. She is walking to the dayroom for breakfast. She she says she's doing well and slept well. She denies SI/HI or hallucinations of any kind. 02/26 The patient was seen today. She says she's doing well. She denies SI/HI or hallucinations of any kind. 02/25 The patient says seen today. She says she's doing okay and ready to go home. She is confused and thinks she lives with her daughter. Reports state she's resides in a local [place]. The patient says her appetite is good. She denies SI/HI or hallucinations of any kind. 02/24: The patient was seen this morning. She is calm, cooperative and oriented to self. She continues to present with some confusion, rates depression as 1/10. The patient denies any current suicidal/homicidal ideation and denies hallucinations. No changes made today. 02/23: The patient was seen this morning. She presents with restlessness and confusion. She continues to pace, requesting to be discharged. Start Klonopin 0.5mg po BID prn for anxiety REVIEW OF SYSTEMS Constitutional: Negative for weight loss ENT: Negative for stridor Respiratory: Negative for cough or hemoptysis All other systems reviewed and are negative MENTAL STATUS EXAMINATION General Appearance and Behavior: Age appropriate, wearing appropriate clothes, cooperative, polite with questioning, good eye contact Cooperation: cooperative Psychomotor Behavior: Psychomotor normal Mood: Okay Affect and affective range: congruent with stated mood Thought Process: circumstantial Thought Content: Reality oriented Speech: Normal volume, Regular rate and rhythm Suicidal Ideation: Denies Homicidal Ideation: Denies Hallucination: Sometimes Delusions: None elicited Impulse Control: Limited Insight and Judgment: Limited Memory: Intact Attention: attentive Orientation: Alert and oriented Diagnoses: Major depressive disorder Dementia with Behavioral Disturbance Treatment Plan: Patient admitted for inpatient psychiatric evaluation, medication adjustment and close monitoring The patient's behavior, mood, sleep and appetite will be closely monitored. Patient enrolled in individual and group therapeutic sessions and encouraged to attend. Patient provided with a safe and structured environment. Patient's physical health needs will be addressed by the Hospitalist. Hospitalist Consulted Labs including CBC, CMP, Lipid profile and Hemoglobin A1C levels ordered for baseline reference Social Assessment will be completed and the Clinical Sciences Professor will work with patient and family to ensure a suitable and safe disposition Medication adjustment will be made as clinically indicated Continue home meds Usual Wellness Sikh/Preservation: - Start Trazodone 50 mg po QHS & 50 mg po QHS PRN between 10 PM & 2 AM for insomnia - Start Melatonin 5 mg po QHS to promote circadian rhythm The patient agreed on the treatment plan, understood the risk, benefit, alternative treatment, potential consequence of no treatment, and gave informed consent. Estimated days: [address] Goldman Medications and Allergies Allergies Allergy/AdvReac Type Severity Reaction Status Date / Time codeine Allergy Unknown Verified 02/21/22 22:24 Home Medications Medication Instructions Recorded Confirmed Last Taken Type Albuterol Sulfate [Proair 2 puff INHALATION UNK 02/22/22 02/22/22 Unknown History Respiclick] Amiodarone [Cordarone 200 MG TAB] 200 mg PO DAILY 02/22/22 02/22/22 Unknown History Apixaban [Eliquis] 5 mg PO BID 02/22/22 02/22/22 Unknown History Ascorbic Acid [Vitamin C] 500 mg PO QDAY 02/22/22 02/22/22 Unknown History Budesonide/Formoterol Fumarate 10.2 gm IH BID 02/22/22 02/22/22 Unknown History [Symbicort 160-4.5 Mcg Inhaler] Furosemide [Lasix] 20 mg PO BID 02/22/22 02/22/22 Unknown History Levothyroxine [Synthroid] 100 mcg PO QAM 02/22/22 02/22/22 Unknown History Melatonin [Melatonin 3MG TAB] 3 mg PO HS 02/22/22 02/22/22 Unknown History Metoprolol [Lopressor] 25 mg PO BID 02/22/22 02/22/22 Unknown History Nitroglycerin [Nitrostat] 0.4 mg SL Q5M PRN 02/22/22 02/22/22 Unknown History Omeprazole 40 mg PO DAILY 02/22/22 02/22/22 Unknown History Potassium Chloride [K-Dur] 10 meq PO BID 02/22/22 02/22/22 Unknown History QUEtiapine [SEROquel] 100 mg PO BID 02/22/22 02/22/22 Unknown History Quinapril HCl [Accupril] 20 mg PO DAILY 02/22/22 02/22/22 Unknown History Sertraline [Zoloft] 50 mg PO QDAY 02/22/22 02/22/22 Unknown History hydroCHLOROthiazide [HCTZ] 25 mg PO QDAY 02/22/22 02/22/22 Unknown History Active Meds: Active Medications Albuterol (Albuterol 2.5 Mg/3 Ml Nebu) 2.5 mg IH Q4HRT PRN PRN Reason: Shortness Of Breath Last Admin: 02/22/22 18:30 Dose: 2.5 mg Amiodarone HCl (Amiodarone 200 Mg Tab) 200 mg PO DAILY [facility] Last Admin: 03/02/22 11:39 Dose: 200 mg Apixaban (Apixaban 5 Mg Tab) 5 mg PO Q12HR [facility]; Protocol Last Admin: 03/02/22 11:39 Dose: 5 mg Arformoterol Tartrate (Arformoterol 15 Mcg/2 Ml Nebu) 15 mcg IH Q12HRT [facility] Last Admin: 03/02/22 08:26 Dose: 15 mcg Ascorbic Acid (Ascorbic Acid 500 Mg Tab) 500 mg PO QDAY [facility] Last Admin: 03/02/22 11:39 Dose: 500 mg Budesonide (Budesonide 0.5 Mg/2 Ml Nebu) 1 mg IH Q12HRT [facility] Last Admin: 03/02/22 08:24 Dose: 1 mg Clonazepam (Clonazepam 0.5 Mg Tab) 0.5 mg PO BID PRN PRN Reason: Anxiety Last Admin: 03/02/22 14:16 Dose: 0.5 mg Furosemide (Furosemide 20 Mg Tab) 20 mg PO 0600,1800 [facility] Last Admin: 03/02/22 06:19 Dose: 20 mg Hydrochlorothiazide (Hydrochlorothiazide 25 Mg Tab) 25 mg PO QDAY [facility] Last Admin: 03/02/22 11:40 Dose: Not Given Insulin Glargine (Insulin Glargine 100 Units/Ml) 5 units SUB-Q QAMDIAB [facility] Last Admin: 03/02/22 08:26 Dose: 5 units Insulin Human Lispro (Insulin Lispro 100 Unit/Ml) 0 unit SUB-Q ACHS [facility]; Protocol Last Admin: 03/02/22 11:44 Dose: Not Given Levothyroxine Sodium (Levothyroxine 100 Mcg Tab) 100 mcg PO DAILY@0600 [facility] Last Admin: 03/02/22 06:19 Dose: 100 mcg Lisinopril (Lisinopril 10 Mg Tab) 10 mg PO QDAY [facility] Last Admin: 03/02/22 11:41 Dose: Not Given Melatonin (Melatonin 5 Mg Tab) 5 mg PO QHS [facility] Last Admin: 03/01/22 21:23 Dose: 5 mg Metoprolol Tartrate (Metoprolol Tartrate 25 Mg Tab) 25 mg PO BID [facility] Last Admin: 03/02/22 11:38 Dose: Not Given Nitroglycerin (Nitroglycerin 0.4 Mg Tab Subl) 0.4 mg SL Q5M PRN PRN Reason: Chest Pain Pantoprazole Sodium (Pantoprazole 40 Mg Tab) 40 mg PO DAILY [facility] Last Admin: 03/02/22 11:39 Dose: 40 mg Potassium Chloride (Potassium Chloride Er 10 Meq Tab) 10 meq PO BID [facility] Last Admin: 03/02/22 11:40 Dose: 10 meq Quetiapine Fumarate (Quetiapine 100 Mg Tab) 100 mg PO BID [facility] Last Admin: 03/02/22 11:39 Dose: 100 mg Sertraline HCl (Sertraline 50 Mg Tab) 50 mg PO QDAY [facility] Last Admin: 03/02/22 11:39 Dose: 50 mg Results - Results Labs/Vitals: Laboratory Last Values WBC 5.6 K/mm3 (4.5-11.0) 02/24/22 10:27 RBC 3.36 M/mm3 (3.65-5.03) L 02/24/22 10: Hgb 9.8 gm/dl (10.1-14.3) L 02/24/22 10: Hct 29.7 % (30.3-42.9) L 02/24/22 10: MCV 89 fl (79-97) 02/24/22 10: MCH 29 pg (28-32) 02/24/22 10: MCHC 33 % (30-34) 02/24/22 10: RDW 16.2 % (13.2-15.2) H 02/24/22 10:27 Plt Count 252 K/mm3 (140-440) 02/24/22 10: Lymph % (Auto) 13.9 % (13.4-35.0) 02/24/22 10: [place] % (Auto) 8.1 % (0.0-7.3) H 02/24/22 10: Eos % (Auto) 6.2 % (0.0-4.3) H 02/24/22 10:27 Baso % (Auto) 1.0 % (0.0-1.8) 02/24/22 10: Lymph # (Auto) 0.8 K/mm3 (1.2-5.4) L 02/24/22: [place] # (Auto) 0.5 K/mm3 (0.0-0.8) 02/24/22 10: Eos # (Auto) 0.3 K/mm3 (0.0-0.4) 02/24/22: Baso # (Auto) 0.1 K/mm3 (0.0-0.1) 02/24/22 10:27 Seg Neutrophils % 70.8 % (40.0-70.0) H 02/24/22 10: Seg Neutrophils # 3.9 K/mm3 (1.8-7.7) 02/24/22 10:27 Sodium 138 mmol/L (137-145) 02/24/22 10: Potassium 4.0 mmol/L (3.6-5.0) 02/24/22 10: Chloride 101.7 mmol/L (98-107) 02/24/22 10: Carbon Dioxide 26 mmol/L (22-30) 02/24/22 10:27 Anion Gap 14 mmol/L 02/24/22 10:27 BUN 12 mg/dL (7-17) 02/24/22 10:27 Creatinine 0.6 mg/dL (0.6-1.2) 02/24/22 10:27 Estimated GFR > 60 ml/min 02/24/22 10:27 BUN/Creatinine Ratio 20 % 02/24/22 10:27 Glucose 202 mg/dL (65-100) H 02/24/22 10:27 POC Glucose 135 mg/dL (70-105) H 03/02/22 11:30 Hemoglobin A1c 7.2 % (4-6) H 02/23/22 04:58 Calcium 8.6 mg/dL (8.4-10.2) 02/24/22 10:27 Total Bilirubin 0.20 mg/dL (0.1-1.2) 02/23/22 04:58 AST 12 units/L (5-40) 02/23/22 04:58 ALT 13 units/L (7-56) 02/23/22 04:58 Alkaline Phosphatase 112 units/L (35-129) 02/23/22 04:58 Total Protein 5.8 g/dL (6.3-8.2) L 02/23/22 04:58 Albumin 2.9 g/dL (3.9-5) L 02/23/22 04:58 Albumin/Globulin Ratio 1.0 % 02/23/22 04:58 Triglycerides 52 mg/dL (2-149) 02/23/22 04:58 Cholesterol 129 mg/dL (50-199) 02/23/22 04:58 LDL Cholesterol Direct 60 mg/dL (50-130) 02/23/22 04:58 HDL Cholesterol 65 mg/dL (40-59) H 02/23/22 04:58 Cholesterol/HDL Ratio 1.98 % 02/23/22 04:58 TSH 0.975 mlU/mL (0.270-4.200) 02/23/22 04:58 Urine Color Yellow (Yellow) 02/22/22 00:52 Urine Turbidity Clear (Clear) 02/22/22 00:52 Urine pH 5.0 (5.0-7.0) 02/22/22 00:52 Ur Specific [place] 1.017 (1.003-1.030) 02/22/22 00:52 Urine Protein <15 mg/dl mg/dL (Negative) 02/22/22 00:52 Urine Glucose (UA) Neg mg/dL (Negative) 02/22/22 00:52 Urine Ketones Neg mg/dL (Negative) 02/22/22 00:52 Urine Blood Neg (Negative) 02/22/22 00:52 Urine Nitrite Neg (Negative) 02/22/22 00:52 Urine Bilirubin Neg (Negative) 02/22/22 00:52 Urine Urobilinogen 2.0 mg/dL (<2.0) 02/22/22 00:52 Ur Leukocyte Esterase Sm (Negative) 02/22/22 00:52 Urine WBC (Auto) 17.0 /HPF (0.0-6.0) H 02/22/22 00:52 Urine RBC (Auto) 2.0 /HPF (0.0-6.0) 02/22/22 00:52 U Epithel Cells (Auto) 1.0 /HPF (0-13.0) 02/22/22 00:52 Urine Mucus Few /HPF 02/22/22 00:52 SARS-CoV-2 (PCR) Negative (Negative) 03/02/22 12:45 Last Vital Signs Temp 97.8 F 03/01/22 20:00 Pulse 58 L 03/02/22 11:41 Resp 16 03/02/22 08:28 BP 115/47 03/02/22 11:41 Pulse Ox 96 03/01/22 20:00
[2022-03-02] MEDS: MELATONIN 5 MG TAB PO SCH (21:23)
[2022-03-03] MEDS: LEVOTHYROXINE 100 MCG TAB PO SCH (05:38)
[2022-03-03] MEDS: FUROSEMIDE 20 MG TAB PO SCH ×2 (05:38→17:03)
[2022-03-03] MEDS: ARFORMOTEROL 15 MCG/2 ML NEBU IH SCH ×3 (06:15→19:50)
[2022-03-03] MEDS: BUDESONIDE 0.5 MG/2 ML NEBU IH SCH ×3 (06:16→19:50)
[2022-03-03] MEDS: SERTRALINE 50 MG TAB PO SCH (09:38)
[2022-03-03] MEDS: ASCORBIC ACID 500 MG TAB PO SCH (09:38)
[2022-03-03] MEDS: PANTOPRAZOLE 40 MG TAB PO SCH (09:38)
[2022-03-03] MEDS: QUEtiapine 100 MG TAB PO SCH ×2 (09:38→21:04)
[2022-03-03] MEDS: hydroCHLOROthiazide 25 MG TAB PO SCH (09:38)
[2022-03-03] MEDS: POTASSIUM CHLORIDE ER 10 MEQ TAB PO SCH ×2 (09:38→21:04)
[2022-03-03] MEDS: METOPROLOL TARTRATE 25 MG TAB PO SCH ×2 (09:44→21:04)
[2022-03-03] MEDS: LISINOPRIL 10 MG TAB PO SCH (09:45)
[2022-03-03] MEDS: INSULIN GLARGINE 100 UNITS/ML SUB-Q SCH (09:46)
[2022-03-03] MEDS: AMIODARONE 200 MG TAB PO SCH (09:46)
--- NOTE | 2022-03-03 09:47 | Progress Note ---
Subjective Date of service: 03/03/22 Principal diagnosis: Major Depressive Disorder, r/o Neurocognitive Disorder Subjective Comment: The patient was seen today. She is lying in bed sleeping, but easily arouses. She is fixated on going home and asks several times. She denies SI/HI or hallucinations of any kind. She is awaiting placement. 03/02 The patient was seen today. She denies SI/HI or hallucinations of any kind. 03/01 The patient was seen today. She is sitting in the dayroom. She says she feels okay. She is forgetful and asks some questions several times. She is pleasant and polite. The patient says she's ready to go home. She says "I'm of my right mind. I want to go home and start back going to synagogue. I want to start my life again. She denies SI/HI or hallucinations. The patient scored 19 on the SLUMS Examination, which scores her in the Dementia range. 02/28 The patient was seen today. She says she feels okay. She denies SI/HI or hallucinations. But staff says the patient has been anxious, pacing and constantly obsessed with going home. 02/27 The patient was seen today. She is walking to the dayroom for breakfast. She she says she's doing well and slept well. She denies SI/HI or hallucinations of any kind. 02/26 The patient was seen today. She says she's doing well. She denies SI/HI or hallucinations of any kind. 02/25 The patient says seen today. She says she's doing okay and ready to go home. She is confused and thinks she lives with her daughter. Reports state she's resides in a local [place]. The patient says her appetite is good. She denies SI/HI or hallucinations of any kind. 02/24: The patient was seen this morning. She is calm, cooperative and oriented to self. She continues to present with some confusion, rates depression as 1/10. The patient denies any current suicidal/homicidal ideation and denies hallucinations. No changes made today. 02/23: The patient was seen this morning. She presents with restlessness and confusion. She continues to pace, requesting to be discharged. Start Klonopin 0.5mg po BID prn for anxiety REVIEW OF SYSTEMS Constitutional: Negative for weight loss ENT: Negative for stridor Respiratory: Negative for cough or hemoptysis All other systems reviewed and are negative MENTAL STATUS EXAMINATION General Appearance and Behavior: Age appropriate, wearing appropriate clothes, cooperative, polite with questioning, good eye contact Cooperation: cooperative Psychomotor Behavior: Psychomotor normal Mood: Okay Affect and affective range: congruent with stated mood Thought Process: circumstantial Thought Content: Reality oriented Speech: Normal volume, Regular rate and rhythm Suicidal Ideation: Denies Homicidal Ideation: Denies Hallucination: Sometimes Delusions: None elicited Impulse Control: Limited Insight and Judgment: Limited Memory: Intact Attention: attentive Orientation: Alert and oriented Diagnoses: Major depressive disorder Dementia with Behavioral Disturbance Treatment Plan: Patient admitted for inpatient psychiatric evaluation, medication adjustment and close monitoring The patient's behavior, mood, sleep and appetite will be closely monitored. Patient enrolled in individual and group therapeutic sessions and encouraged to attend. Patient provided with a safe and structured environment. Patient's physical health needs will be addressed by the Hospitalist. Hospitalist Consulted Labs including CBC, CMP, Lipid profile and Hemoglobin A1C levels ordered for baseline reference Social Assessment will be completed and the Sample Driller will work with patient and family to ensure a suitable and safe disposition Medication adjustment will be made as clinically indicated Continue home meds Usual Wellness Sikhism/Preservation: - Start Trazodone 50 mg po QHS & 50 mg po QHS PRN between 10 PM & 2 AM for insomnia - Start Melatonin 5 mg po QHS to promote circadian rhythm The patient agreed on the treatment plan, understood the risk, benefit, alternative treatment, potential consequence of no treatment, and gave informed consent. Estimated days: [address] Goldman Medications and Allergies Allergies Allergy/AdvReac Type Severity Reaction Status Date / Time codeine Allergy Unknown Verified 02/21/22 22:24 Home Medications Medication Instructions Recorded Confirmed Last Taken Type Albuterol Sulfate [Proair 2 puff INHALATION UNK 02/22/22 02/22/22 Unknown History Respiclick] Amiodarone [Cordarone 200 MG TAB] 200 mg PO DAILY 02/22/22 02/22/22 Unknown History Apixaban [Eliquis] 5 mg PO BID 02/22/22 02/22/22 Unknown History Ascorbic Acid [Vitamin C] 500 mg PO QDAY 02/22/22 02/22/22 Unknown History Budesonide/Formoterol Fumarate 10.2 gm IH BID 02/22/22 02/22/22 Unknown History [Symbicort 160-4.5 Mcg Inhaler] Furosemide [Lasix] 20 mg PO BID 02/22/22 02/22/22 Unknown History Levothyroxine [Synthroid] 100 mcg PO QAM 02/22/22 02/22/22 Unknown History Melatonin [Melatonin 3MG TAB] 3 mg PO HS 02/22/22 02/22/22 Unknown History Metoprolol [Lopressor] 25 mg PO BID 02/22/22 02/22/22 Unknown History Nitroglycerin [Nitrostat] 0.4 mg SL Q5M PRN 02/22/22 02/22/22 Unknown History Omeprazole 40 mg PO DAILY 02/22/22 02/22/22 Unknown History Potassium Chloride [K-Dur] 10 meq PO BID 02/22/22 02/22/22 Unknown History QUEtiapine [SEROquel] 100 mg PO BID 02/22/22 02/22/22 Unknown History Quinapril HCl [Accupril] 20 mg PO DAILY 02/22/22 02/22/22 Unknown History Sertraline [Zoloft] 50 mg PO QDAY 02/22/22 02/22/22 Unknown History hydroCHLOROthiazide [HCTZ] 25 mg PO QDAY 02/22/22 02/22/22 Unknown History Active Meds: Active Medications Albuterol (Albuterol 2.5 Mg/3 Ml Nebu) 2.5 mg IH Q4HRT PRN PRN Reason: Shortness Of Breath Last Admin: 02/22/22 18:30 Dose: 2.5 mg Amiodarone HCl (Amiodarone 200 Mg Tab) 200 mg PO DAILY [facility] Last Admin: 03/03/22 09:46 Dose: Not Given Apixaban (Apixaban 5 Mg Tab) 5 mg PO Q12HR [facility]; Protocol Last Admin: 03/02/22 21:23 Dose: 5 mg Arformoterol Tartrate (Arformoterol 15 Mcg/2 Ml Nebu) 15 mcg IH Q12HRT [facility] Last Admin: 03/03/22 08:45 Dose: 15 mcg Ascorbic Acid (Ascorbic Acid 500 Mg Tab) 500 mg PO QDAY [facility] Last Admin: 03/03/22 09:38 Dose: 500 mg Budesonide (Budesonide 0.5 Mg/2 Ml Nebu) 1 mg IH Q12HRT [facility] Last Admin: 03/03/22 08:45 Dose: Not Given Clonazepam (Clonazepam 0.5 Mg Tab) 0.5 mg PO BID PRN PRN Reason: Anxiety Last Admin: 03/02/22 21:24 Dose: 0.5 mg Furosemide (Furosemide 20 Mg Tab) 20 mg PO 0600,1800 [facility] Last Admin: 03/03/22 05:38 Dose: 20 mg Hydrochlorothiazide (Hydrochlorothiazide 25 Mg Tab) 25 mg PO QDAY [facility] Last Admin: 03/03/22 09:38 Dose: 25 mg Insulin Glargine (Insulin Glargine 100 Units/Ml) 5 units SUB-Q QAMDIAB [facility] Last Admin: 03/02/22 08:26 Dose: 5 units Insulin Human Lispro (Insulin Lispro 100 Unit/Ml) 0 unit SUB-Q ACHS [facility]; Protocol Last Admin: 03/02/22 21:24 Dose: Not Given Levothyroxine Sodium (Levothyroxine 100 Mcg Tab) 100 mcg PO DAILY@0600 [facility] Last Admin: 03/03/22 05:38 Dose: 100 mcg Lisinopril (Lisinopril 10 Mg Tab) 10 mg PO QDAY [facility] Last Admin: 03/03/22 09:45 Dose: Not Given Melatonin (Melatonin 5 Mg Tab) 5 mg PO QHS [facility] Last Admin: 03/02/22 21:23 Dose: 5 mg Metoprolol Tartrate (Metoprolol Tartrate 25 Mg Tab) 25 mg PO BID [facility] Last Admin: 03/03/22 09:44 Dose: Not Given Nitroglycerin (Nitroglycerin 0.4 Mg Tab Subl) 0.4 mg SL Q5M PRN PRN Reason: Chest Pain Pantoprazole Sodium (Pantoprazole 40 Mg Tab) 40 mg PO DAILY [facility] Last Admin: 03/03/22 09:38 Dose: 40 mg Potassium Chloride (Potassium Chloride Er 10 Meq Tab) 10 meq PO BID [facility] Last Admin: 03/03/22 09:38 Dose: 10 meq Quetiapine Fumarate (Quetiapine 100 Mg Tab) 100 mg PO BID [facility] Last Admin: 03/03/22 09:38 Dose: 100 mg Sertraline HCl (Sertraline 50 Mg Tab) 50 mg PO QDAY [facility] Last Admin: 03/03/22 09:38 Dose: 50 mg Results - Results Labs/Vitals: Laboratory Last Values WBC 5.6 K/mm3 (4.5-11.0) 02/24/22 10:27 RBC 3.36 M/mm3 (3.65-5.03) L 02/24/22 10:27 Hgb 9.8 gm/dl (10.1-14.3) L 02/24/22 10:27 Hct 29.7 % (30.3-42.9) L 02/24/22 10:27 MCV 89 fl (79-97) 02/24/22 10:27 MCH 29 pg (28-32) 02/24/22 10: MCHC 33 % (30-34) 02/24/22 10: RDW 16.2 % (13.2-15.2) H 02/24/22 10:27 Plt Count 252 K/mm3 (140-440) 02/24/22 10:27 Lymph % (Auto) 13.9 % (13.4-35.0) 02/24/22 10:27 [place] % (Auto) 8.1 % (0.0-7.3) H 02/24/22 10:27 Eos % (Auto) 6.2 % (0.0-4.3) H 02/24/22 10:27 Baso % (Auto) 1.0 % (0.0-1.8) 02/24/22 10:27 Lymph # (Auto) 0.8 K/mm3 (1.2-5.4) L 02/24/22 10:27 [place] # (Auto) 0.5 K/mm3 (0.0-0.8) 02/24/22 10:27 Eos # (Auto) 0.3 K/mm3 (0.0-0.4) 02/24/22 10:27 Baso # (Auto) 0.1 K/mm3 (0.0-0.1) 02/24/22 10:27 Seg Neutrophils % 70.8 % (40.0-70.0) H 02/24/22 10:27 Seg Neutrophils # 3.9 K/mm3 (1.8-7.7) 02/24/22 10:27 Sodium 138 mmol/L (137-145) 02/24/22 10:27 Potassium 4.0 mmol/L (3.6-5.0) 02/24/22 10:27 Chloride 101.7 mmol/L (98-107) 02/24/22 10:27 Carbon Dioxide 26 mmol/L (22-30) 02/24/22 10:27 Anion Gap 14 mmol/L 02/24/22 10:27 BUN 12 mg/dL (7-17) 02/24/22 10:27 Creatinine 0.6 mg/dL (0.6-1.2) 02/24/22 10:27 Estimated GFR > 60 ml/min 02/24/22 10:27 BUN/Creatinine Ratio 20 % 02/24/22 10:27 Glucose 202 mg/dL (65-100) H 02/24/22 10:27 POC Glucose 78 mg/dL (70-105) 03/03/22 06:05 Hemoglobin A1c 7.2 % (4-6) H 02/23/22 04:58 Calcium 8.6 mg/dL (8.4-10.2) 02/24/22 10:27 Total Bilirubin 0.20 mg/dL (0.1-1.2) 02/23/22 04:58 AST 12 units/L (5-40) 02/23/22 04:58 ALT 13 units/L (7-56) 02/23/22 04:58 Alkaline Phosphatase 112 units/L (35-129) 02/23/22 04:58 Total Protein 5.8 g/dL (6.3-8.2) L 02/23/22 04:58 Albumin 2.9 g/dL (3.9-5) L 02/23/22 04:58 Albumin/Globulin Ratio 1.0 % 02/23/22 04:58 Triglycerides 52 mg/dL (2-149) 02/23/22 04:58 Cholesterol 129 mg/dL (50-199) 02/23/22 04:58 LDL Cholesterol Direct 60 mg/dL (50-130) 02/23/22 04:58 HDL Cholesterol 65 mg/dL (40-59) H 02/23/22 04:58 Cholesterol/HDL Ratio 1.98 % 02/23/22 04:58 TSH 0.975 mlU/mL (0.270-4.200) 02/23/22 04:58 Urine Color Yellow (Yellow) 02/22/22 00:52 Urine Turbidity Clear (Clear) 02/22/22 00:52 Urine pH 5.0 (5.0-7.0) 02/22/22 00:52 Ur Specific [place] 1.017 (1.003-1.030) 02/22/22 00:52 Urine Protein <15 mg/dl mg/dL (Negative) 02/22/22 00:52 Urine Glucose (UA) Neg mg/dL (Negative) 02/22/22 00:52 Urine Ketones Neg mg/dL (Negative) 02/22/22 00:52 Urine Blood Neg (Negative) 02/22/22 00:52 Urine Nitrite Neg (Negative) 02/22/22 00:52 Urine Bilirubin Neg (Negative) 02/22/22 00:52 Urine Urobilinogen 2.0 mg/dL (<2.0) 02/22/22 00:52 Ur Leukocyte Esterase Sm (Negative) 02/22/22 00:52 Urine WBC (Auto) 17.0 /HPF (0.0-6.0) H 02/22/22 00:52 Urine RBC (Auto) 2.0 /HPF (0.0-6.0) 02/22/22 00:52 U Epithel Cells (Auto) 1.0 /HPF (0-13.0) 02/22/22 00:52 Urine Mucus Few /HPF 02/22/22 00:52 SARS-CoV-2 (PCR) Negative (Negative) 03/02/22 12:45 Last Vital Signs Temp 97.6 F 03/03/22 08:28 Pulse 61 03/03/22 09:45 Resp 16 03/03/22 08:28 BP 134/56 03/03/22 09:45 Pulse Ox 94 03/03/22 08:28
[2022-03-03] MEDS: INSULIN LISPRO 100 UNIT/ML SUB-Q SCH ×3 (09:52→17:02)
[2022-03-03] MEDS: APIXABAN 5 MG TAB PO SCH ×2 (09:56→21:04)
[2022-03-03] MEDS: ALBUTEROL 2.5 MG/3 ML NEBU IH PRN (13:12)
[2022-03-03] MEDS: clonazePAM 0.5 MG TAB PO PRN (21:04)
[2022-03-03] MEDS: MELATONIN 5 MG TAB PO SCH (21:04)
[2022-03-04] MEDS: FUROSEMIDE 20 MG TAB PO SCH (07:07)
[2022-03-04] MEDS: LEVOTHYROXINE 100 MCG TAB PO SCH (07:07)
[2022-03-04] MEDS: BUDESONIDE 0.5 MG/2 ML NEBU IH SCH (07:27)
[2022-03-04] MEDS: ARFORMOTEROL 15 MCG/2 ML NEBU IH SCH (07:27)
[2022-03-04 09:15] VITALS: BP 125/45
--- NOTE | 2022-03-04 15:46 | Progress Note ---
Assessment and Plan - Patient Problems (1) Vascular dementia with behavioral disturbance Current Visit: Yes Status: Acute Plan to address problem: Verbal prompting, verbal redirection, benzodiazepine therapy as clinically indicated. (2) Cerebral atherosclerosis Current Visit: Yes Status: Acute Plan to address problem: Antiplatelet therapy as clinically indicated, supportive care, risk factor reduction. (3) MDD (major depressive disorder) Current Visit: Yes Status: Acute Plan to address problem: Continue medical management, supportive care. (4) LAI (generalized anxiety disorder) Current Visit: Yes Status: Acute Plan to address problem: Benzodiazepine therapy as clinically indicated. Supportive care. Behavior change counseling. (5) DM2 (diabetes mellitus, type 2) Current Visit: Yes Status: Acute Plan to address problem: Consistent carbohydrate diet, continue medical management, supportive care. Accu-Chek. (6) Hypertension Current Visit: Yes Status: Acute Qualifiers: Hypertension type: primary hypertension Qualified Code(s): I10 - Essential (primary) hypertension Plan to address problem: Monitor blood pressure every shift, continue medical management. (7) UTI (urinary tract infection) Current Visit: Yes Status: Acute Plan to address problem: Full course antibiotic therapy completed today (8) A-fib Current Visit: Yes Status: Chronic Plan to address problem: Continue medical management, supportive care. Continue therapeutic anticoagulation. (9) Hypothyroidism Current Visit: Yes Status: Acute Plan to address problem: Continue Synthroid therapy, supportive care. (10) Advance care planning Current Visit: Yes Status: Acute Plan to address problem: Disease education done, care plan discussed, diagnoses discussed, prognosis discussed, patient is full code. Patient knowledges understanding and agreement with care plan, +30 minutes. (11) Preventative health care Current Visit: Yes Status: Acute Plan to address problem: Patient counseled regarding home safety, risk factor reduction, patient instructed to follow-up with primary care physician for all age and risk factor appropriate screening test. +30 minutes. History Interval history: 87 YO Female with Vascular Dementia with Behavioral Disturbance, Cerebral Atherosclerosis, Atrial Fib on therapeutic anticoagulation with Eliquis, Hypothyroidism, DM, HTN, MDD, LAI, UTI on full coarse antibiotic therapy admi tted to [facility] for psychiatric stabilization. Consult placed by Dr. Telles for medical management. Pt seen and evaluated in the recreation room. Pt resting comfortably today. Patient confused with tangential thinking but appears to be at baseline level of cognition and function. No reported nursing events. Hospitalist Physical - Constitutional Vitals: Temp Pulse Resp BP Pulse Ox 97.4 F L 57 L 18 125/45 97 03/04/22 07:58 03/04/22 07:58 03/04/22 07:58 03/04/22 07:58 03/04/22 07:58 General appearance: Present: no acute distress, cachectic - EENT Eyes: Present: PERRL ENT: hearing decreased - Neck Neck: Present: supple - Respiratory Respiratory effort: normal Respiratory: bilateral: diminished - Cardiovascular Rhythm: regular Heart Sounds: Present: S1 & S2 - Extremities Extremities: no ischemia Peripheral Pulses: within normal limits - Abdominal General gastrointestinal: soft, non-tender, non-distended - Integumentary Integumentary: Present: clear, dry - Psychiatric Psychiatric: cooperative - Neurologic Neurologic: CNII-XII intact Results - Labs CBC & Chem 7: 02/24/22 10:27 02/24/22 10:27 Labs: Laboratory Last Values WBC 5.6 K/mm3 (4.5-11.0) 02/24/22 10:27 RBC 3.36 M/mm3 (3.65-5.03) L 02/24/22 10:27 Hgb 9.8 gm/dl (10.1-14.3) L 02/24/22 10:27 Hct 29.7 % (30.3-42.9) L 02/24/22 10:27 MCV 89 fl (79-97) 02/24/22 10:27 MCH 29 pg (28-32) 02/24/22 10:27 MCHC 33 % (30-34) 02/24/22 10:27 RDW 16.2 % (13.2-15.2) H 02/24/22 10:27 Plt Count 252 K/mm3 (140-440) 02/24/22 10:27 Lymph % (Auto) 13.9 % (13.4-35.0) 02/24/22 10:27 [place] % (Auto) 8.1 % (0.0-7.3) H 02/24/22 10:27 Eos % (Auto) 6.2 % (0.0-4.3) H 02/24/22 10:27 Baso % (Auto) 1.0 % (0.0-1.8) 02/24/22 10:27 Lymph # (Auto) 0.8 K/mm3 (1.2-5.4) L 02/24/22 10:27 [place] # (Auto) 0.5 K/mm3 (0.0-0.8) 02/24/22 10:27 Eos # (Auto) 0.3 K/mm3 (0.0-0.4) 02/24/22 10:27 Baso # (Auto) 0.1 K/mm3 (0.0-0.1) 02/24/22 10:27 Seg Neutrophils % 70.8 % (40.0-70.0) H 02/24/22 10:27 Seg Neutrophils # 3.9 K/mm3 (1.8-7.7) 02/24/22 10:27 Sodium 138 mmol/L (137-145) 02/24/22 10:27 Potassium 4.0 mmol/L (3.6-5.0) 02/24/22 10:27 Chloride 101.7 mmol/L (98-107) 02/24/22 10:27 Carbon Dioxide 26 mmol/L (22-30) 02/24/22 10:27 Anion Gap 14 mmol/L 02/24/22 10:27 BUN 12 mg/dL (7-17) 02/24/22 10:27 Creatinine 0.6 mg/dL (0.6-1.2) 02/24/22 10:27 Estimated GFR > 60 ml/min 02/24/22 10:27 BUN/Creatinine Ratio 20 % 02/24/22 10:27 Glucose 202 mg/dL (65-100) H 02/24/22 10:27 POC Glucose 197 mg/dL (70-105) H 03/03/22 19:32 Hemoglobin A1c 7.2 % (4-6) H 02/23/22 04:58 Calcium 8.6 mg/dL (8.4-10.2) 02/24/22 10:27 Total Bilirubin 0.20 mg/dL (0.1-1.2) 02/23/22 04:58 AST 12 units/L (5-40) 02/23/22 04:58 ALT 13 units/L (7-56) 02/23/22 04:58 Alkaline Phosphatase 112 units/L (35-129) 02/23/22 04:58 Total Protein 5.8 g/dL (6.3-8.2) L 02/23/22 04:58 Albumin 2.9 g/dL (3.9-5) L 02/23/22 04:58 Albumin/Globulin Ratio 1.0 % 02/23/22 04:58 Triglycerides 52 mg/dL (2-149) 02/23/22 04:58 Cholesterol 129 mg/dL (50-199) 02/23/22 04:58 LDL Cholesterol Direct 60 mg/dL (50-130) 02/23/22 04:58 HDL Cholesterol 65 mg/dL (40-59) H 02/23/22 04:58 Cholesterol/HDL Ratio 1.98 % 02/23/22 04:58 TSH 0.975 mlU/mL (0.270-4.200) 02/23/22 04:58 Urine Color Yellow (Yellow) 02/22/22 00:52 Urine Turbidity Clear (Clear) 02/22/22 00:52 Urine pH 5.0 (5.0-7.0) 02/22/22 00:52 Ur Specific [place] 1.017 (1.003-1.030) 02/22/22 00:52 Urine Protein <15 mg/dl mg/dL (Negative) 02/22/22 00:52 Urine Glucose (UA) Neg mg/dL (Negative) 02/22/22 00:52 Urine Ketones Neg mg/dL (Negative) 02/22/22 00:52 Urine Blood Neg (Negative) 02/22/22 00:52 Urine Nitrite Neg (Negative) 02/22/22 00:52 Urine Bilirubin Neg (Negative) 02/22/22 00:52 Urine Urobilinogen 2.0 mg/dL (<2.0) 02/22/22 00:52 Ur Leukocyte Esterase Sm (Negative) 02/22/22 00:52 Urine WBC (Auto) 17.0 /HPF (0.0-6.0) H 02/22/22 00:52 Urine RBC (Auto) 2.0 /HPF (0.0-6.0) 02/22/22 00:52 U Epithel Cells (Auto) 1.0 /HPF (0-13.0) 02/22/22 00:52 Urine Mucus Few /HPF 02/22/22 00:52 SARS-CoV-2 (PCR) Negative (Negative) 03/02/22 12:45 [place]/IV: Voiding Method Toilet Active Medications - Current Medications Current Medications: Generic Name Dose Route Start Last Admin Trade Name Freq PRN Reason Stop Dose Admin Albuterol 2.5 mg 02/22/22 12:00 03/03/22 13:12 Albuterol 2.5 Mg/3 Ml Nebu IH 2.5 mg Q4HRT PRN Administration Shortness Of Breath Amiodarone HCl 200 mg 02/22/22 10:00 03/03/22 09:46 Amiodarone 200 Mg Tab PO Not Given DAILY YANA Apixaban 5 mg 02/22/22 11:00 03/03/22 21:04 Apixaban 5 Mg Tab PO 5 mg Q12HR YANA Administration Protocol Arformoterol Tartrate 15 mcg 02/22/22 12:00 03/04/22 07:27 Arformoterol 15 Mcg/2 Ml Nebu IH 15 mcg Q12HRT YANA Administration Ascorbic Acid 500 mg 02/22/22 10:00 03/03/22 09:38 Ascorbic Acid 500 Mg Tab PO 500 mg QDAY YANA Administration Budesonide 1 mg 02/22/22 12:00 03/04/22 07:27 Budesonide 0.5 Mg/2 Ml Nebu IH 1 mg Q12HRT YANA Administration Clonazepam 0.5 mg 02/23/22 10:48 03/03/22 21:04 Clonazepam 0.5 Mg Tab PO 0.5 mg BID PRN Administration Anxiety Furosemide 20 mg 02/22/22 10:00 03/04/22 07:07 Furosemide 20 Mg Tab PO 20 mg 0600,1800 YANA Administration Hydrochlorothiazide 25 mg 02/22/22 10:00 03/03/22 09:38 Hydrochlorothiazide 25 Mg Tab PO 25 mg QDAY YANA Administration Insulin Glargine 5 units 02/24/22 13:00 03/03/22 09:46 Insulin Glargine 100 Units/Ml SUB-Q 5 units QAMDIAB YANA Administration Insulin Human Lispro 0 unit 02/22/22 11:30 03/03/22 17:02 Insulin Lispro 100 Unit/Ml SUB-Q 1 unit ACHS YANA Administration Protocol Levothyroxine Sodium 100 mcg 02/22/22 10:00 03/04/22 07:07 Levothyroxine 100 Mcg Tab PO 100 mcg DAILY@0600 YANA Administration Lisinopril 10 mg 02/22/22 11:00 03/03/22 09:45 Lisinopril 10 Mg Tab PO Not Given QDAY YANA Melatonin 5 mg 02/22/22 01:00 03/03/22 21:04 Melatonin 5 Mg Tab PO 5 mg QHS YANA Administration Metoprolol Tartrate 25 mg 02/22/22 10:00 03/03/22 21:04 Metoprolol Tartrate 25 Mg Tab PO 25 mg BID YANA Administration Nitroglycerin 0.4 mg 02/22/22 09:30 Nitroglycerin 0.4 Mg Tab Subl SL Q5M PRN Chest Pain Pantoprazole Sodium 40 mg 02/22/22 11:00 03/03/22 09:38 Pantoprazole 40 Mg Tab PO 40 mg DAILY YANA Administration Potassium Chloride 10 meq 02/22/22 11:30 03/03/22 21:04 Potassium Chloride Er 10 Meq Tab PO 10 meq BID YANA Administration Quetiapine Fumarate 100 mg 02/22/22 10:00 03/03/22 21:04 Quetiapine 100 Mg Tab PO 100 mg BID YANA Administration Sertraline HCl 50 mg 02/22/22 10:00 03/03/22 09:38 Sertraline 50 Mg Tab PO 50 mg QDAY YANA Administration Nutrition/Malnutrition Assess - Dietary Evaluation Nutrition/Malnutrition Findings: Nutrition Notes Start: 02/22/22 15:25 Freq: Status: Active Protocol: Document 02/28/22 11:51 GENE (Rec: 02/28/22 11:54 [facility] [id number]) Nutrition Notes Need for Assessment generated from: LOS Initial or Follow up Brief Note Current Diet Cardiac/Consistent CHO Height 5 ft 4.57 in Weight 54.7 kg [place] Body Weight (kg) 55.84 BMI 20.3 Weight Status Underweight Subjective/Other Information Pt screened for LOS. She has consumed 80% of meals since admission. Percent of energy/protein needs met: 100% energy and pro Minimum of two criteria No Is patient on ventilator? No Is Patient Ambulatory and/or Out of Bed Yes REE-([place]-St. Jeor-ambulatory/OOB) [ [id number] [id number]] Calculation Used for Recommendations [place] Jeor Additional Notes Pro needs 1.2-1.5g/k-82g/ day Fluid needs 1ml/kcal Nutrition Intervention Revisit per MD consult or patient Sign Off request:
--- NOTE | 2022-03-04 15:49 | Progress Note ---
Assessment and Plan - Patient Problems (1) Vascular dementia with behavioral disturbance Current Visit: Yes Status: Acute Plan to address problem: Verbal prompting, verbal redirection, benzodiazepine therapy as clinically indicated. (2) Cerebral atherosclerosis Current Visit: Yes Status: Acute Plan to address problem: Antiplatelet therapy as clinically indicated, supportive care, risk factor reduction. (3) MDD (major depressive disorder) Current Visit: Yes Status: Acute Plan to address problem: Continue medical management, supportive care. (4) LAI (generalized anxiety disorder) Current Visit: Yes Status: Acute Plan to address problem: Benzodiazepine therapy as clinically indicated. Supportive care. Behavior change counseling. (5) DM2 (diabetes mellitus, type 2) Current Visit: Yes Status: Acute Plan to address problem: Consistent carbohydrate diet, continue medical management, supportive care. Accu-Chek. (6) Hypertension Current Visit: Yes Status: Acute Qualifiers: Hypertension type: primary hypertension Qualified Code(s): I10 - Essential (primary) hypertension Plan to address problem: Monitor blood pressure every shift, continue medical management. (7) UTI (urinary tract infection) Current Visit: Yes Status: Acute Plan to address problem: Full course antibiotic therapy completed. (8) A-fib Current Visit: Yes Status: Chronic Plan to address problem: Continue medical management, supportive care. Continue therapeutic anticoagulation. (9) Hypothyroidism Current Visit: Yes Status: Acute Plan to address problem: Continue Synthroid therapy, supportive care. (10) Advance care planning Current Visit: Yes Status: Acute Plan to address problem: Disease education done, care plan discussed, diagnoses discussed, prognosis discussed, patient is full code. Patient knowledges understanding and agreement with care plan, +30 minutes. (11) Preventative health care Current Visit: Yes Status: Acute Plan to address problem: Patient counseled regarding home safety, risk factor reduction, patient instructed to follow-up with primary care physician for all age and risk factor appropriate screening test. +30 minutes. History Interval history: 87 YO Female with Vascular Dementia with Behavioral Disturbance, Cerebral Atherosclerosis, Atrial Fib on therapeutic anticoagulation with Eliquis, Hypothyroidism, DM, HTN, MDD, LAI admitted to [facility] for psychiatric stabilization. Consult placed by Dr. Telles for medical management. Pt seen and evaluated in the recreation room. Pt resting comfortably today. Patient confused with tangential thinking but appears to be at baseline level of cognition and function. No reported nursing events. Hospitalist Physical - Constitutional Vitals: Temp Pulse Resp BP Pulse Ox 97.4 F L 57 L 18 125/45 97 03/04/22 07:58 03/04/22 07:58 03/04/22 07:58 03/04/22 07:58 03/04/22 07:58 General appearance: Present: no acute distress, cachectic - EENT Eyes: Present: PERRL ENT: hearing decreased - Neck Neck: Present: supple - Respiratory Respiratory effort: normal Respiratory: bilateral: diminished - Cardiovascular Rhythm: irregularly irregular Heart Sounds: Present: S1 & S2 - Extremities Extremities: no ischemia Peripheral Pulses: within normal limits - Abdominal General gastrointestinal: soft, non-tender, non-distended - Integumentary Integumentary: Present: clear, dry - Psychiatric Psychiatric: cooperative - Neurologic Neurologic: CNII-XII intact Results - Labs CBC & Chem 7: 02/24/22 10:27 02/24/22 10:27 Labs: Laboratory Last Values WBC 5.6 K/mm3 (4.5-11.0) 02/24/22 10:27 RBC 3.36 M/mm3 (3.65-5.03) L 02/24/22 10:27 Hgb 9.8 gm/dl (10.1-14.3) L 02/24/22 10:27 Hct 29.7 % (30.3-42.9) L 02/24/22 10:27 MCV 89 fl (79-97) 02/24/22 10:27 MCH 29 pg (28-32) 02/24/22 10:27 MCHC 33 % (30-34) 02/24/22 10:27 RDW 16.2 % (13.2-15.2) H 02/24/22 10:27 Plt Count 252 K/mm3 (140-440) 02/24/22 10:27 Lymph % (Auto) 13.9 % (13.4-35.0) 02/24/22 10:27 [place] % (Auto) 8.1 % (0.0-7.3) H 02/24/22 10:27 Eos % (Auto) 6.2 % (0.0-4.3) H 02/24/22 10:27 Baso % (Auto) 1.0 % (0.0-1.8) 02/24/22 10:27 Lymph # (Auto) 0.8 K/mm3 (1.2-5.4) L 02/24/22 10:27 [place] # (Auto) 0.5 K/mm3 (0.0-0.8) 02/24/22 10:27 Eos # (Auto) 0.3 K/mm3 (0.0-0.4) 02/24/22 10:27 Baso # (Auto) 0.1 K/mm3 (0.0-0.1) 02/24/22 10:27 Seg Neutrophils % 70.8 % (40.0-70.0) H 02/24/22 10:27 Seg Neutrophils # 3.9 K/mm3 (1.8-7.7) 02/24/22 10:27 Sodium 138 mmol/L (137-145) 02/24/22 10:27 Potassium 4.0 mmol/L (3.6-5.0) 02/24/22 10:27 Chloride 101.7 mmol/L (98-107) 02/24/22 10:27 Carbon Dioxide 26 mmol/L (22-30) 02/24/22 10:27 Anion Gap 14 mmol/L 02/24/22 10:27 BUN 12 mg/dL (7-17) 02/24/22 10:27 Creatinine 0.6 mg/dL (0.6-1.2) 02/24/22 10:27 Estimated GFR > 60 ml/min 02/24/22 10:27 BUN/Creatinine Ratio 20 % 02/24/22 10:27 Glucose 202 mg/dL (65-100) H 02/24/22 10:27 POC Glucose 197 mg/dL (70-105) H 03/03/22 19:32 Hemoglobin A1c 7.2 % (4-6) H 02/23/22 04:58 Calcium 8.6 mg/dL (8.4-10.2) 02/24/22 10:27 Total Bilirubin 0.20 mg/dL (0.1-1.2) 02/23/22 04:58 AST 12 units/L (5-40) 02/23/22 04:58 ALT 13 units/L (7-56) 02/23/22 04:58 Alkaline Phosphatase 112 units/L (35-129) 02/23/22 04:58 Total Protein 5.8 g/dL (6.3-8.2) L 02/23/22 04:58 Albumin 2.9 g/dL (3.9-5) L 02/23/22 04:58 Albumin/Globulin Ratio 1.0 % 02/23/22 04:58 Triglycerides 52 mg/dL (2-149) 02/23/22 04:58 Cholesterol 129 mg/dL (50-199) 02/23/22 04:58 LDL Cholesterol Direct 60 mg/dL (50-130) 02/23/22 04:58 HDL Cholesterol 65 mg/dL (40-59) H 02/23/22 04:58 Cholesterol/HDL Ratio 1.98 % 02/23/22 04:58 TSH 0.975 mlU/mL (0.270-4.200) 02/23/22 04:58 Urine Color Yellow (Yellow) 02/22/22 00:52 Urine Turbidity Clear (Clear) 02/22/22 00:52 Urine pH 5.0 (5.0-7.0) 02/22/22 00:52 Ur Specific [place] 1.017 (1.003-1.030) 02/22/22 00:52 Urine Protein <15 mg/dl mg/dL (Negative) 02/22/22 00:52 Urine Glucose (UA) Neg mg/dL (Negative) 02/22/22 00:52 Urine Ketones Neg mg/dL (Negative) 02/22/22 00:52 Urine Blood Neg (Negative) 02/22/22 00:52 Urine Nitrite Neg (Negative) 02/22/22 00:52 Urine Bilirubin Neg (Negative) 02/22/22 00:52 Urine Urobilinogen 2.0 mg/dL (<2.0) 02/22/22 00:52 Ur Leukocyte Esterase Sm (Negative) 02/22/22 00:52 Urine WBC (Auto) 17.0 /HPF (0.0-6.0) H 02/22/22 00:52 Urine RBC (Auto) 2.0 /HPF (0.0-6.0) 02/22/22 00:52 U Epithel Cells (Auto) 1.0 /HPF (0-13.0) 02/22/22 00:52 Urine Mucus Few /HPF 02/22/22 00:52 SARS-CoV-2 (PCR) Negative (Negative) 03/02/22 12:45 [place]/IV: Voiding Method Toilet Active Medications - Current Medications Current Medications: Generic Name Dose Route Start Last Admin Trade Name Freq PRN Reason Stop Dose Admin Albuterol 2.5 mg 02/22/22 12:00 03/03/22 13:12 Albuterol 2.5 Mg/3 Ml Nebu IH 2.5 mg Q4HRT PRN Administration Shortness Of Breath Amiodarone HCl 200 mg 02/22/22 10:00 03/03/22 09:46 Amiodarone 200 Mg Tab PO Not Given DAILY YANA Apixaban 5 mg 02/22/22 11:00 03/03/22 21:04 Apixaban 5 Mg Tab PO 5 mg Q12HR YANA Administration Protocol Arformoterol Tartrate 15 mcg 02/22/22 12:00 03/04/22 07:27 Arformoterol 15 Mcg/2 Ml Nebu IH 15 mcg Q12HRT YANA Administration Ascorbic Acid 500 mg 02/22/22 10:00 03/03/22 09:38 Ascorbic Acid 500 Mg Tab PO 500 mg QDAY YANA Administration Budesonide 1 mg 02/22/22 12:00 03/04/22 07:27 Budesonide 0.5 Mg/2 Ml Nebu IH 1 mg Q12HRT YANA Administration Clonazepam 0.5 mg 02/23/22 10:48 03/03/22 21:04 Clonazepam 0.5 Mg Tab PO 0.5 mg BID PRN Administration Anxiety Furosemide 20 mg 02/22/22 10:00 03/04/22 07:07 Furosemide 20 Mg Tab PO 20 mg 0600,1800 YANA Administration Hydrochlorothiazide 25 mg 02/22/22 10:00 03/03/22 09:38 Hydrochlorothiazide 25 Mg Tab PO 25 mg QDAY YANA Administration Insulin Glargine 5 units 02/24/22 13:00 03/03/22 09:46 Insulin Glargine 100 Units/Ml SUB-Q 5 units QAMDIAB YANA Administration Insulin Human Lispro 0 unit 02/22/22 11:30 03/03/22 17:02 Insulin Lispro 100 Unit/Ml SUB-Q 1 unit ACHS YANA Administration Protocol Levothyroxine Sodium 100 mcg 02/22/22 10:00 03/04/22 07:07 Levothyroxine 100 Mcg Tab PO 100 mcg DAILY@0600 YANA Administration Lisinopril 10 mg 02/22/22 11:00 03/03/22 09:45 Lisinopril 10 Mg Tab PO Not Given QDAY YANA Melatonin 5 mg 02/22/22 01:00 03/03/22 21:04 Melatonin 5 Mg Tab PO 5 mg QHS YANA Administration Metoprolol Tartrate 25 mg 02/22/22 10:00 03/03/22 21:04 Metoprolol Tartrate 25 Mg Tab PO 25 mg BID YANA Administration Nitroglycerin 0.4 mg 02/22/22 09:30 Nitroglycerin 0.4 Mg Tab Subl SL Q5M PRN Chest Pain Pantoprazole Sodium 40 mg 02/22/22 11:00 03/03/22 09:38 Pantoprazole 40 Mg Tab PO 40 mg DAILY YANA Administration Potassium Chloride 10 meq 02/22/22 11:30 03/03/22 21:04 Potassium Chloride Er 10 Meq Tab PO 10 meq BID YANA Administration Quetiapine Fumarate 100 mg 02/22/22 10:00 03/03/22 21:04 Quetiapine 100 Mg Tab PO 100 mg BID YANA Administration Sertraline HCl 50 mg 02/22/22 10:00 03/03/22 09:38 Sertraline 50 Mg Tab PO 50 mg QDAY YANA Administration Nutrition/Malnutrition Assess - Dietary Evaluation Nutrition/Malnutrition Findings: Nutrition Notes Start: 02/22/22 15:25 Freq: Status: Active Protocol: Document 02/28/22 11:51 GENE (Rec: 02/28/22 11:54 FLLOREN [id number]) Nutrition Notes Need for Assessment generated from: LOS Initial or Follow up Brief Note Current Diet Cardiac/Consistent CHO Height 5 ft 4.57 in Weight 54.7 kg [place] Body Weight (kg) 55.84 BMI 20.3 Weight Status Underweight Subjective/Other Information Pt screened for LOS. She has consumed 80% of meals since admission. Percent of energy/protein needs met: 100% energy and pro Minimum of two criteria No Is patient on ventilator? No Is Patient Ambulatory and/or Out of Bed Yes REE-([place]-. Jeor-ambulatory/OOB) [ [id number] [id number]] Calculation Used for Recommendations [place] Additional Notes Pro needs 1.2-1.5g/k-82g/ day Fluid needs 1ml/kcal Nutrition Intervention Revisit per MD consult or patient Sign Off request:
== END 2022-03-04 08:25 | disposition home or self-care (01) | DRG 881 ==
LOC: 3A 16:55 → UNDOADMIN 16:55 → 5A 23:52
PROVIDERS: ADMIT Psychiatry & Neurology Psychiatry; ATTEND Psychiatry & Neurology Psychiatry
DX: F32.9 Major depressive disorder, single episode, unspecified (principal); R45.851 Suicidal ideations; N39.0 Urinary tract infection, site not specified; F01.51 Vascular dementia, unspecified severity, with behavioral disturbance; Z20.822 Contact with and (suspected) exposure to COVID-19; F41.9 Anxiety disorder, unspecified; D72.829 Elevated white blood cell count, unspecified; I10 Essential (primary) hypertension; I48.91 Unspecified atrial fibrillation; E11.9 Type 2 diabetes mellitus without complications; E78.5 Hyperlipidemia, unspecified; F41.1 Generalized anxiety disorder; I67.2 Cerebral atherosclerosis; E03.9 Hypothyroidism, unspecified; Z88.6 Allergy status to analgesic agent
CPT/HCPCS: 36415; 71045; 80048; 80053; 80061; 81001; 82962; 83036; 84443; 85025; 87040; 87086; 94640; G0378; Q9967; J1815; U0003